=== PATIENT | female | born 1970 | race Caucasian/White ===

== ENCOUNTER → 2016-11-29 | Outpatient (CLI) | payer MEDICAID ==
[2016-11-29 17:14] LABS: Anisocytosis Slight; Basophils % (A) 0 %; CH 16.3; CHCM 25.6; Eosinophils % (A) 0 %; HCT 29.9 % (34.0-46.0); HDW 3.33; HGB 7.7 gm/dL (11.4-16.0); Hypochromasia Marked; Luc # (Auto) 0.05; Luc % (Auto) 1; Lymphocytes # (A) 0.4 k/uL (1.0-4.8); Lymphocytes % (A) 6 %; MCH 16.6 pg (25.0-35.0); MCV 64.2 fL (80.0-100.0); Mean Platelet Volume 7.7; Microcytosis Marked; Monocytes # (A) 0.2 k/uL (0-1.0); Monocytes % (A) 4 %; Neutrophils # (A) 5.1 k/uL (1.3-7.7); Neutrophils % (A) 89 %; RBC 4.66 m/uL (3.80-5.40); RDW 18.5 % (11.5-15.5); WBC 5.7 k/uL (3.8-10.6); WBC (Perox) 5.92
[2016-11-29 17:15] LABS: MCHC 25.9 g/dL (31.0-37.0)
[2016-11-29 18:44] LABS: Hepatitis C Virus IgG Index 0.01
[2016-11-29 18:50] LABS: Hepatitis C Virus IgG Ab Negative (Negative)
[2016-11-29 19:25] LABS: ALT 26 U/L (9-52); AST 19 U/L (14-36); Blood Urea Nitrogen 24 mg/dL (7-17); Non-African American GFR(MDRD) >60 (>60 ml/min/1.73 sqM)
== END | disposition home or self-care (01) ==
LOC: LABWHC1 16:53
PROVIDERS: ATTEND Physician Assistant Medical
DX: L20.89 Other atopic dermatitis (principal)
CPT/HCPCS: 36415; 82565; 84450; 84460; 84520; 85025; 86707; 86803; 87350

== ENCOUNTER → 2016-12-06 | Outpatient (CLI) | payer MEDICAID ==
[2016-12-06 19:51] LABS: Iron <10 ug/dL (37-170)
[2016-12-06 20:00] LABS: % Iron Saturation <2.3 % (20-50); Total Iron Binding Capacity 431 ug/dL (265-497)
[2016-12-06 20:41] LABS: Anisocytosis Slight; CH 16.5; CHCM 25.3; HCT 33.6 % (34.0-46.0); HDW 3.05; HGB 8.5 gm/dL (11.4-16.0); Hypochromasia Marked; MCH 16.7 pg (25.0-35.0); MCV 65.7 fL (80.0-100.0); Mean Platelet Volume 6.8; Microcytosis Marked; RBC 5.11 m/uL (3.80-5.40); RDW 18.2 % (11.5-15.5); WBC 6.2 k/uL (3.8-10.6); WBC (Perox) 6.92
[2016-12-06 20:43] LABS: MCHC 25.4 g/dL (31.0-37.0)
[2016-12-06 21:04] LABS: Add Differential Manual Differential
[2016-12-06 21:09] LABS: Nucleated Red Blood Cells 0 /100 WBC (0-0); Ovalocytes Present; Stomatocytes Present; Target Cells Present; Tear Drop Cells Present; Total Cells Counted 100
[2016-12-06 21:10] LABS: Manual Review Performed
== END | disposition home or self-care (01) ==
LOC: MMGSC 10:23
PROVIDERS: ATTEND Family Medicine
DX: D64.9 Anemia, unspecified (principal)
CPT/HCPCS: 36415; 82728; 83540; 83550; 85025

== ENCOUNTER → 2017-02-20 | Outpatient (CLI) | payer MEDICAID ==
[2017-02-21 00:14] LABS: Anisocytosis Slight; Basophils % (A) 1 %; CH 27.5; CHCM 31.8; Eosinophils # (A) 0.2 k/uL (0-0.7); Eosinophils % (A) 3 %; HCT 42.3 % (34.0-46.0); HDW 3.25; HGB 13.3 gm/dL (11.4-16.0); Hypochromasia Slight; Luc # (Auto) 0.08; Luc % (Auto) 2; Lymphocytes # (A) 0.8 k/uL (1.0-4.8); Lymphocytes % (A) 15 %; MCH 27.1 pg (25.0-35.0); MCHC 31.5 g/dL (31.0-37.0); Microcytosis Slight; Monocytes # (A) 0.2 k/uL (0-1.0); Monocytes % (A) 4 %; Neutrophils % (A) 75 %; RBC 4.92 m/uL (3.80-5.40); WBC 5.3 k/uL (3.8-10.6)
[2017-02-21 01:34] LABS: ALT 27 U/L (9-52); AST 20 U/L (14-36); Alkaline Phosphatase 55 U/L (38-126); Anion Gap 11 mmol/L; Blood Urea Nitrogen 19 mg/dL (7-17); Carbon Dioxide 21 mmol/L (22-30); Chloride 106 mmol/L (98-107); Cholesterol 168 mg/dL (<200); Glucose 145 mg/dL (74-99); HDL Cholesterol 77 mg/dL (40-60); Iron 47 ug/dL (37-170); Non-African American GFR(MDRD) >60 (>60 ml/min/1.73 sqM); Potassium 3.9 mmol/L (3.5-5.1); Sodium 138 mmol/L (137-145); Total Bilirubin 0.4 mg/dL (0.2-1.3); Total Protein 6.6 g/dL (6.3-8.2); Triglycerides 43 mg/dL (<150)
[2017-02-21 01:44] LABS: % Iron Saturation 13.5 % (20-50); Total Iron Binding Capacity 347 ug/dL (265-497)
== END ==
LOC: MMGSC 17:05
PROVIDERS: ATTEND Family Medicine
DX: E11.9 Type 2 diabetes mellitus without complications (principal); E03.9 Hypothyroidism, unspecified; D64.9 Anemia, unspecified
CPT/HCPCS: 36415; 80053; 80061; 82728; 83036; 83540; 83550; 84439; 84443; 85025

== ENCOUNTER → 2017-04-04 | Outpatient (CLI) | payer MEDICAID | LOC: MMGSC 17:04 | PROVIDERS: ATTEND Family Medicine | DX: E03.9 Hypothyroidism, unspecified (principal) | CPT/HCPCS: 36415; 84439; 84443 ==

== ENCOUNTER → 2017-05-21 | Outpatient (CLI) | payer MEDICAID ==
--- NOTE | 2017-05-21 08:54 | US ---
EXAMINATION TYPE: US pelvic complete DATE OF EXAM: 05/21/2017 COMPARISON: NONE CLINICAL HISTORY: N92.0 MENORRHAGIA W/ REGULAR CYCLE. Heavy, irregular cycles for 7 months, h/o tubal and TECHNIQUE: TA, did not do TV approach due to size of pathology noted below would have made TV approa ch very difficult to properly assess structures Date of LMP: 04/25/2017 EXAM MEASUREMENTS: Uterus: 9.8 x 6.2 x 4.8 cm Endometrial Stripe: 1.5 cm Right Ovary: 1.7 x 1.8 x 1.1 cm Left Ovary: 2.3 x 1.5 x 1.4 cm 1. Uterus: Anteverted, 8.4cm left sided fibroid seen and midline smaller fibroid noted at 2.2cm. 2. Endometrium: wnl 3. Right Ovary: wnl 4. Left Ovary: wnl 5. Bilateral Adnexa: wnl 6. Posterior cul-de-sac: wnl IMPRESSION: 1. Large 8.4 cm fibroid within the left side uterus. A smaller fibroid is also noted.
--- NOTE | 2017-05-22 07:30 | MM ---
Reason for exam: screening (asymptomatic). Last mammogram was performed 1 year and 9 months ago. History: Family history of breast cancer in grandmother at age 70. Physical Findings: A clinical breast exam by your physician is recommended on an annual basis and results should be correlated with mammographic findings. MG Screening Mammo w CAD Bilateral CC and MLO view(s) were taken. Prior study comparison: August 27, 2015, bilateral MG screening mammo w CAD. The breast tissue is extremely dense which could obscure a lesion on mammography. No significant changes when compared with prior studies. ASSESSMENT: Negative, BI-RAD 1 RECOMMENDATION: Routine screening mammogram of both breasts in 1 year.
== END | disposition home or self-care (01) ==
LOC: RADUSWWP 06:52
PROVIDERS: ATTEND Obstetrics & Gynecology
DX: Z12.31 Encounter for screening mammogram for malignant neoplasm of breast (principal); D25.9 Leiomyoma of uterus, unspecified; N92.0 Excessive and frequent menstruation with regular cycle
CPT/HCPCS: 76856; G0202

== ENCOUNTER → 2017-06-16 | Outpatient (CLI) | payer MEDICAID ==
[2017-06-16 09:21] LABS: Basophils # (A) 0.1 k/uL (0-0.2); Basophils % (A) 1 %; CH 30.8; CHCM 34.9; Eosinophils # (A) 0.2 k/uL (0-0.7); Eosinophils % (A) 4 %; HCT 45.7 % (34.0-46.0); HDW 2.45; HGB 15.5 gm/dL (11.4-16.0); Luc # (Auto) 0.04; Luc % (Auto) 1; Lymphocytes # (A) 0.4 k/uL (1.0-4.8); Lymphocytes % (A) 8 %; MCH 30.1 pg (25.0-35.0); MCV 88.7 fL (80.0-100.0); Mean Platelet Volume 7.5; Monocytes # (A) 0.4 k/uL (0-1.0); Monocytes % (A) 7 %; Neutrophils % (A) 79 %; RBC 5.15 m/uL (3.80-5.40); RDW 13.9 % (11.5-15.5); WBC 5.1 k/uL (3.8-10.6); WBC (Perox) 4.99
[2017-06-16 09:37] LABS: Anion Gap 10 mmol/L; Blood Urea Nitrogen 14 mg/dL (7-17); Calcium 9.1 mg/dL (8.4-10.2); Carbon Dioxide 26 mmol/L (22-30); Chloride 102 mmol/L (98-107); Glucose 253 mg/dL (74-99); Non-African American GFR(MDRD) >60 (>60 ml/min/1.73 sqM); Potassium 4.6 mmol/L (3.5-5.1); Sodium 138 mmol/L (137-145)
== END ==
LOC: LABWHC1 08:56
PROVIDERS: ATTEND Obstetrics & Gynecology
DX: Z01.812 Encounter for preprocedural laboratory examination (principal)
CPT/HCPCS: 36415; 80048; 85025

== ENCOUNTER 2017-06-21 05:57 | Inpatient (IN) | payer MEDICAID ==
[2017-06-18 17:56] VITALS: BMI 25.4
--- NOTE | 2017-06-19 21:00 | P.HPOB ---
History of Present Illness H&P Date: 06/19/17 Chief Complaint: menorrhagia 47 year old presents for Total abdominal hysterectomy with bilateral salpingectomy and possible oopherectomy. She has been having irregular, heavy and painful periods for the last several months. US showed 9.8cm uterus with 8.4cm lateral fibroid and 4-5cm pedunculated fibroid through the cervix. normal pap and endometrial biopsy. Review of Systems All systems: negative Constitutional: Denies chills, Denies fever Eyes: denies blurred vision, denies pain Ears, nose, mouth and throat: Denies headache, Denies sore throat Cardiovascular: Denies chest pain, Denies shortness of breath Respiratory: Denies cough Gastrointestinal: Denies abdominal pain, Denies diarrhea, Denies nausea, Denies vomiting Genitourinary: Denies dysuria, Denies hematuria Musculoskeletal: Denies myalgias Integumentary: Denies pruritus, Denies rash Neurological: Denies numbness, Denies weakness Psychiatric: Denies anxiety, Denies depression Endocrine: Denies fatigue, Denies weight change Past Medical History Past Medical History: Diabetes Mellitus, Skin Disorder, Thyroid Disorder Additional Past Medical History / Comment(s): ECTOPIC DERMATITIS. HX THYROIDECTOMY D/T NODULES. History of Any Multi-Drug Resistant Organisms: None Reported Past Surgical History: Section, Tubal Ligation Additional Past Surgical History / Comment(s): THYROIDECTOMY. Past Anesthesia/Blood Transfusion Reactions: Motion Sickness Smoking Status: Current every day smoker Past Alcohol Use History: None Reported Past Drug Use History: None Reported - Past Family History Mother Family Medical History: Cancer Additional Family Medical History / Comment(s): brain Medications and Allergies Home Medications Medication Instructions Recorded Confirmed Type Insulin Aspart [NovoLOG] 0 unit SQ AC-TID PRN 03/02/14 06/18/17 History Levothyroxine Sodium [Synthroid] 150 mcg PO DAILY 03/02/14 06/18/17 History Clobetasol Propionate [Temovate 1 applic TOPICAL DIRECTED PRN 06/18/17 History 0.05% Oint] Insulin Degludec [Tresiba 20 unit SQ QAM 06/18/17 06/18/17 History Flextouch U-100] Iron 65 mg PO DAILY 06/18/17 06/18/17 History Triamcinolone 0.1% Ointment 1 applic TOPICAL QID PRN 06/18/17 06/18/17 History [Kenalog 0.1% Ointment] hydrOXYzine HCL 10 mg PO HS PRN 06/18/17 06/18/17 History Allergies Allergy/AdvReac Type Severity Reaction Status Date / Time No Known Allergies Allergy Verified 06/18/17 15:30 Exam Osteopathic Statement: *. No significant issues noted on an osteopathic structural exam other than those noted in the History and Physical/Consult. HEart: RRR Lungs: CTAB Abdomen: soft, nontender Extremeties: neg cosme's Assessment and Plan (1) Menorrhagia Status: Acute (2) Fibroid uterus Status: Acute Plan: 1. Total Abdominal Hysterectomy with Bilateral Salpingectomy and possible oopherectomy
[~2017-06-21 05:57] MED LIST: DEXAMETHASONE SOD PHOSPHATE 10 MG/ML 1 ML VIAL IV ONE; LACTATED RINGERS 1,000 ML IV SCH; MIDAZOLAM 2 MG/2 ML VIAL IV PRN; ONDANSETRON 4 MG/2 ML VIAL IVP ONE; ceFAZolin 2 GM in SODIUM CHLORIDE 0.9% 100 ML IVPB ONE
[2017-06-21 06:44] LABS: Glucose,Whole Blood 76 mg/dL (75-99)
[2017-06-21] MEDS ORDERED: LIDOCAINE 1% 20 ML VIAL (10MG/ML) FOR IV START INTRADERMA ONE (06:46)
[2017-06-21] MEDS ORDERED: fentaNYL (PF) 50 MCG/ML 2 ML AMP IV ONE (07:15)
[2017-06-21] MEDS ORDERED: SUCCINYLCHOLINE CHLORIDE 100 MG/5 ML SYR IV ONE (07:28)
[2017-06-21] MEDS ORDERED: MIDAZOLAM 2 MG/2 ML VIAL ONE (07:28)
[2017-06-21] MEDS ORDERED: LIDOCAINE 1% INJ 10MG/ML (20 ML MDV) ONE (07:28)
[2017-06-21] MEDS ORDERED: fentaNYL (PF) 50 MCG/ML 2 ML AMP ONE (07:28)
[2017-06-21] MEDS ORDERED: NEOSTIGMINE 1 MG/ML 10 ML VIAL ONE (07:28)
[2017-06-21] MEDS ORDERED: PROPOFOL 10 MG/ML 20 ML VIAL IV ONE (07:28)
[2017-06-21] MEDS ORDERED: ROCURONIUM BROMIDE 10 MG/ML 10 ML VIAL IV ONE (07:28)
[2017-06-21] MEDS ORDERED: GLYCOPYRROLATE 0.2 MG/ML 2 ML VIAL ONE (07:28)
[2017-06-21] MEDS ORDERED: LACTATED RINGERS 1,000 ML IV ONE (08:00)
[2017-06-21] MEDS ORDERED: NALBUPHINE 10 MG/ML AMPUL IV PRN (08:18)
[2017-06-21] MEDS ORDERED: NALOXONE 0.4 MG/ML 1 ML VIAL IV PRN (08:18)
[2017-06-21] MEDS ORDERED: diphenhydrAMINE 50 MG/ML 1 ML VIAL IVP PRN (08:18)
[2017-06-21] MEDS ORDERED: KETOROLAC 30 MG/ML 1 ML VIAL IVP PRN (08:18)
--- NOTE | 2017-06-21 08:49 | P.OP ---
Date of Procedure: 06/21/17 Preoperative Diagnosis: 1. Menorrhagia 2. Fibroid uterus Postoperative Diagnosis: 1. Menorrhagia 2. Fibroid uterus Procedure(s) Performed: Total abdominal hysterectomy with bilateral salpingectomy Anesthesia: CHRISTINA Surgeon: Brenda Fernandes Advisor To [employer]: Brian Zamudio Estimated Blood Loss (ml): 150 IV fluids (ml): 1,000 Urine output (ml): 120 Pathology: other (Uterus and cervix with fallopian tubes and attached uterine fibroids) Condition: stable Disposition: PACU Operative Findings: Pedunculated fibroid off the fundus and prolapsed fibroid through the cervix, normal ovaries Description of Procedure: Patient is taken the operating room where general anesthesia was obtained without difficulty. She is prepped and draped in normal sterile fashion dorsal supine position. Pfannenstiel skin incision was made the scalpel carried through to the underlying layer of fascia with the scalpel. Fascia was incised in midline and carried bilaterally with the Watson scissors. Superior aspect of the fascial incision was grasped Canones clamps elevated and the underlying rectus muscles dissected off with the Mayos. Attention was then turned to the inferior aspect of same incision which in a similar fashion was grasped tented up and the underlying rectus muscles dissected off with the Watson's. Rectus muscles were the midline and the peritoneum was identified tented up and entered sharply with the scalpel. The incision was extended superiorly and inferiorly with good visualization of bladder. The [place] retractor was then placed. The bowels packed away with moist laparotomy sponges. Survey of the pelvis revealed a uterus with a pedunculated fibroid off the fundus, normal ovaries and normal-appearing fallopian tubes that had obviously been through a tubal ligation. The right fallopian tube was grasped with a Jordanian and beneath that a Jose De Jesus was used to clamp the mesosalpinx. The mesosalpinx was cut and this area was suture ligated. The right round ligament was then clamped cut and suture ligated. The left fallopian tube was clamped cut and suture ligated. The left round ligament was clamped cut and suture ligated. There were some adhesions of the bladder to the anterior uterus which were taken off using the Metzenbaums gently. The bladder was peeled off the underlying cervix. The broad ligament and uterine artery were clamped with Jose De Jesus clamps cut and suture ligated. This is then a stepwise fashion down the cardinal ligaments the uterosacral ligaments to the level of the cervix. The cervicovaginal junction was then clamped cut and suture ligated. The uterus and cervix were amputated off the underlying vaginal cuff. Vaginal cuff was closed with 0 Vicryl in a running locked fashion. Excellent hemostasis was assured. The pelvis was copiously irrigated. Both ovaries were again inspected and appeared normal. All instruments were removed from the abdomen. The peritoneum was reapproximated with 2-0 Vicryl in a running fashion. Muscles were approximated with 2-0 Vicryl in a interrupted fashion. The fascia was reapproximated with 0 Vicryl in a running fashion. The subcutaneous tissues closed with 3-0 Vicryl in a running fashion. The skin was closed lisbet. Patient tolerated procedure well, sponge and instrument counts are correct 2. She was taken to recovery in stable condition.
[2017-06-21 08:59] LABS: Glucose,Whole Blood 99 mg/dL (75-99)
[2017-06-21] MEDS: HYDROmorphone 1 MG/ML 1 ML SYRINGE IVP PRN ×2 (09:26→09:41)
[2017-06-21] MEDS ORDERED: hydrOXYzine HCL 10 MG TAB PO PRN (09:49)
[2017-06-21] MEDS ORDERED: SIMETHICONE 80 MG CHEWABLE PO PRN (09:49)
[2017-06-21] MEDS ORDERED: Acetaminophen-Codeine 300-30mg TAB PO PRN ×2 (09:49)
[2017-06-21] MEDS: LEVOTHYROXINE 75 MCG TAB PO SCH (10:04)
--- NOTE | 2017-06-21 12:17 | P.CONS ---
History of Present Illness - Reason for Consult Consult date: 06/21/17 medical management of diabetes mellitus post op Requesting physician: Brenda Fernandes - Chief Complaint post operative day Zero - History of Present Illness 47-year-old female with past medical history significant of diabetes mellitus type 2, hypothyroidism, uterine fibroids. Patient presented for elective surgical intervention, patient has been diagnosed with uterine fibroids however she's been complaining of a lot of abdominal pain irregular heavy menses for months now. She has consult. FIRE ALARM INSTALLER and decision was made to have them surgically removed. Patient is seen today postoperative day 0 she tolerated procedure well, currently denies any chest pain or trouble breathing denies any headache or changes in her vision or hearing denies any focal neurologic deficits. She reports that her pain is controlled. Patient reports that she takes insulin at home for diabetes management combination of NovoLog and long-acting insulin. She is not sure what her most recent A1c has been however she reports that that much well controlled per her doctor. We were asked to see the patient to assist with diabetic management. Review of Systems Constitutional: Patient reports no fever, no chills, no night sweating, no significant weight changes Eyes: Patient reports no visual changes, no eye pain ENT: Patient reports no ear pain, no rhinorrhea, no sore throat Cardiovascular: Patient reports no chest pain, no exertional dyspnea, no peripheral leg edema, no orthopnea, no paroxysmal nocturnal dyspnea Respiratory:Patient reports no cough, no wheezing, no shortness of breath Gastrointestinal: Patient reports no diarrhea, no constipation, no nausea no vomiting, no abdominal pain Genitourinary: Patient reports no dysuria, no hematuria, no changes in urinary habits, no genital lesions. Patient reports long history of heavy irregular menstrual periods and she was diagnosed with uterine fibroids as mentioned in HPI Musculoskeletal: Patient reports no muscle pain, no joint pain Psychiatric: Patient reports no changes in mood or memory, no suicidal ideation , no anxiety Endocrine: Patient reports no heat intolerance, no cold intolerance, no excessive thirst, no polyuria Neurological: Patient reports no focal neurologic deficits, no weakness, no numbness, no tingling Hem/Lymphatic: Patient reports no bleeding tendency, no bruising, no swollen lymph glands Allergic/Immun: Patient reports no recent allergic reactions Skin: Patient reports no rashes, no pruritis, no ulcers Past Medical History Past Medical History: Diabetes Mellitus, Skin Disorder, Thyroid Disorder Additional Past Medical History / Comment(s): Atopic DERMATITIS. HX THYROIDECTOMY D/T NODULES. uterine fibriods, heavy irregular menstrual periods History of Any Multi-Drug Resistant Organisms: None Reported Past Surgical History: Section, Tubal Ligation Additional Past Surgical History / Comment(s): THYROIDECTOMY. Past Anesthesia/Blood Transfusion Reactions: Motion Sickness Past Psychological History: No Psychological Hx Reported Smoking Status: Current every day smoker Past Alcohol Use History: None Reported Additional Past Alcohol Use History / Comment(s): SMOKED AGE [age] YEARS OLD, BEGAN AGAIN 2011, 1/2 PPD. Past Drug Use History: None Reported - Past Family History Mother Family Medical History: Cancer Additional Family Medical History / Comment(s): brain. DM runs in the family Medications and Allergies Home Medications and Allergies Comment(s): reviewed Home Medications Medication Instructions Recorded Confirmed Type Insulin Aspart [NovoLOG] See Protocol SQ AC-TID PRN 03/02/14 06/21/17 History Clobetasol Propionate [Temovate 1 applic TOPICAL DIRECTED PRN 06/18/17 History 0.05% Oint] Insulin Degludec [Tresiba 20 unit SQ QAM 06/18/17 06/21/17 History Flextouch U-100] Triamcinolone 0.1% Ointment 1 applic TOPICAL QID PRN 06/18/17 06/21/17 History [Kenalog 0.1% Ointment] hydrOXYzine HCL 10 mg PO HS PRN 06/18/17 06/21/17 History Ferrous Sulfate [Feosol] 325 mg PO DAILY 06/21/17 06/21/17 History Levothyroxine Sodium [Synthroid] 150 mcg PO DAILY 06/21/17 06/21/17 History Allergies Allergy/AdvReac Type Severity Reaction Status Date / Time No Known Allergies Allergy Verified 06/21/17 09:34 Physical Exam Vitals: Vital Signs Temp Pulse Pulse Resp BP BP Pulse Ox 06/21/17 11:17 97 06/21/17 10:50 88 19 110/61 98 06/21/17 10:35 92 19 114/72 98 06/21/17 10:20 98.5 F 88 19 119/62 93 L 06/21/17 09:58 90 16 115/72 92 L 06/21/17 09:43 94 16 117/60 92 L 06/21/17 09:28 85 16 125/64 98 06/21/17 09:13 76 16 131/63 97 06/21/17 08:58 78 16 129/60 100 06/21/17 08:43 98 F 66 12 118/58 99 06/21/17 08:18 98.1 F 71 18 153/78 90 L 06/21/17 07:22 75 16 125/71 99 06/21/17 07:10 71 16 118/79 99 06/21/17 06:22 98.5 F 73 16 121/73 98 Intake and Output 06/20/17 06/21/17 06/21/17 22:59 06:59 14:59 Intake Total 200 1450 Output Total 270 Balance 200 1180 Intake: IV 200 1450 Output: Urine 120 Estimated Blood Loss 150 Other: Voiding Method Indwelling Catheter Constitutional: No acute distress, conversant, pleasant Eyes: Anicteric sclerae, moist conjunctiva, no lid-lag Pupils equal round reactive to light ENMT: NC/AT Oropharynx clear, no erythema, exudates Neck: Supple, FROM, no masses, or JVD No carotid bruits No palpable masses Lungs: Clear to auscultation Clear to percussion Normal respiratory effort, no accessory muscle use Cardiovascular: Heart regular in rate and rhythm, No murmurs, gallops, or rubs No peripheral edema Abdominal: Soft , slight discomfort with deep palpation, bowel sounds positive, limited assessment for organomegally or deep masses due to immediate post operative periods and pain with deep palpation of the abd. no abd wall hernia, surgical dressing over lower abdomen , intact, clean and dry Garcia cath in place, urine clear and yellow Skin: Normal temperature, tone, texture, turgor No induration No subcutaneous nodules No rash, lesions No ulcers Extremities: No digital cyanosis No clubbing Pedal pulses intact and symmetrical Radial pulses intact and symmetrical No calf tenderness capillary refill is immediate over bilateral toes and fingers Psychiatric: Alert and oriented to person, place and time Appropriate affect fair judgment Neuro Muscles Strength 5/5 in all 4 extremities Sensation to light touch grossly present throughout Cranial nerves II-XII grossly intact No focal sensory deficits Lymphatics: no palpable cervical or supraclavicular , or inguinal lymph nodes Assessment and Plan (1) Diabetes mellitus Narrative/Plan: DM type II, IDDM, patient uses both short and long acting insulin at home continue with novolog per sliding scale start levemir 10 units HS (more conservative dose due to patient being NPO, and will start with clear liquids soon to avoid hypoglycemia) monitor blood sugar adjust insulin dosing as needed check A1C% patient should be able to resume her home insulin regimen upon discharge Status: Acute (2) Nicotine addiction Narrative/Plan: counseling to quit smoking, smoking can delay wound healing incentive spirometry NRT offered Status: Acute (3) DVT prophylaxis Narrative/Plan: currently with SCDs recommendation to consider pharmacologic DVT PPx utilizing heparin sc or lovenox , defer to primary team when its safe to start that Status: Acute (4) Anemia Narrative/Plan: 2/2 heavy menses check ferritin, iron studies and TIBC in AM patient used iron supplementation as outpatient check CBC in AM Status: Acute (5) Fibroid uterus Narrative/Plan: post operative day Zero post abd hysterectomy and BSO management per FIRE ALARM INSTALLER pain control consider removing Garcia catheter Status: Acute (6) Menorrhagia Status: Acute Plan: Thank you for allowing us to participate in the care of this patient. We will follow up closely along with you. Do not hesitate to contact us with questions. Someone can be reached from [facility] hospitalist group at all hours of the day at [phone]. Surrogate decision-maker: patient Father Don Casimiro CODE STATUS: Full COde Discussed with: Patient, and nursing Anticipated discharge: per primary team Anticipated discharge place: Home Time with Patient: Greater than 30
[2017-06-21] MEDS: ONDANSETRON 4 MG/2 ML VIAL IVP PRN ×2 (13:15→19:46)
[2017-06-21 13:26] LABS: Glucose,Whole Blood 162 mg/dL (75-99)
[2017-06-21] MEDS: INSULIN LISPRO (humaLOG) 300 UNIT/3 ML VIAL SQ SCH ×3 (13:37→20:52)
[2017-06-21 17:20] LABS: Glucose,Whole Blood 136 mg/dL (75-99)
[2017-06-21] MEDS: NICOTINE 14MG/24HR PATCH TRANSDERM SCH (20:44)
[2017-06-21 20:45] LABS: Glucose,Whole Blood 108 mg/dL (75-99)
[2017-06-21] MEDS ORDERED: INSULIN DETEMIR 100 UNIT/ML 10 ML VIAL SQ SCH ×2 (21:00)
[2017-06-22] MEDS: LEVOTHYROXINE 75 MCG TAB PO SCH (06:40)
[2017-06-22 06:50] LABS: Glucose,Whole Blood 44 mg/dL (75-99)
[2017-06-22] MEDS: INSULIN LISPRO (humaLOG) 300 UNIT/3 ML VIAL SQ SCH ×4 (06:56→21:47)
[2017-06-22 07:01] LABS: Glucose,Whole Blood 43 mg/dL (75-99)
[2017-06-22 07:34] LABS: Glucose,Whole Blood 65 mg/dL (75-99)
[2017-06-22 07:34] LABS: Glucose,Whole Blood 94 mg/dL (75-99)
[2017-06-22 07:51] LABS: Basophils % (A) 0 %; CH 30.9; CHCM 34.1; Eosinophils % (A) 1 %; HCT 39.1 % (34.0-46.0); HDW 2.41; HGB 12.7 gm/dL (11.4-16.0); Luc # (Auto) 0.05; Luc % (Auto) 1; Lymphocytes # (A) 0.5 k/uL (1.0-4.8); Lymphocytes % (A) 7 %; MCH 29.5 pg (25.0-35.0); MCHC 32.4 g/dL (31.0-37.0); MCV 91.1 fL (80.0-100.0); Mean Platelet Volume 7.6; Monocytes # (A) 0.5 k/uL (0-1.0); Monocytes % (A) 7 %; Neutrophils # (A) 6.1 k/uL (1.3-7.7); Neutrophils % (A) 85 %; RDW 13.4 % (11.5-15.5); WBC 7.1 k/uL (3.8-10.6); WBC (Perox) 7.19
[2017-06-22] MEDS ORDERED: IBUPROFEN 600 MG TAB PO PRN (08:01)
--- NOTE | 2017-06-22 08:08 | P.PN ---
Progress Note - Text Pt seen and examined. She was nauseated yesterday but doing better today though starting to feel some pain. Not passing flatus yet. Denies F/C, CP, BHATT SOB or calf pain.. VSS blood sugar this morning was low in the 40's but pt was asymptomatic. She had some juice and it went up to 94. Heart: RRR Lungs: CTAB Abdomen: soft, nondistended, +bowel sounds, Incision:C/D/I with lisbet Extremeties: neg cosme's A1.S/P [place] BS POD #1 2. DM P 1. increase ambulation 2. pain control-pt states tylenol #3 is not helpful for her and I will change her to [place] 7.5/325 one tab every 6 hours and motrin 600mg every 6 hours 3. regular diabetic diet 4. continue blood sugar management by hospitalist.
[2017-06-22 08:09] LABS: Anion Gap 7 mmol/L; Blood Urea Nitrogen 11 mg/dL (7-17); Calcium 8.1 mg/dL (8.4-10.2); Carbon Dioxide 27 mmol/L (22-30); Chloride 103 mmol/L (98-107); Glucose 92 mg/dL (74-99); Non-African American GFR(MDRD) >60 (>60 ml/min/1.73 sqM); Potassium 3.4 mmol/L (3.5-5.1); Sodium 137 mmol/L (137-145)
[2017-06-22] MEDS: METOCLOPRAMIDE 5 MG/ML 2 ML VIAL IVP PRN (08:36)
[2017-06-22] MEDS: KETOROLAC 30 MG/ML 1 ML VIAL IVP PRN ×2 (09:10→17:47)
[2017-06-22] MEDS: NICOTINE 14MG/24HR PATCH TRANSDERM SCH (09:18)
--- NOTE | 2017-06-22 09:33 | P.PN ---
Progress Note - Text Postoperative day 1 status post total abdominal hysterectomy, and intrathecal morphine given for postoperative analgesia, patient doing well, there is no anesthesia related complications, further management as per her primary team, patient started having pain and she is currently on Tylenol No. 3 and she has some nausea she will be getting Zofran
--- NOTE | 2017-06-22 10:56 | P.PN ---
Subjective Principal diagnosis: patient is seen and examined in follow up of diabetic management 47 year old female with history of uterine fibroids, which became symptomatic and associated with menorrhagia. She elected to have surgical intervention. patient is seen today POD # 1, she was feeling ok this morning denies any chest pain or trouble breathing. she still had her cordon cath in place , and denies passing gasses or BM. This morning she had low blood sugar however was asymptomatic, she was given some juice and crackers and bounced up to the 60s and then 90s. Patient had a bout of vomiting later today which was described as bilious . Objective - Vital Signs Vital signs: Vital Signs Temp 98.4 F 06/22/17 07:53 Pulse 68 06/22/17 07:53 Resp 20 06/22/17 07:53 BP 107/58 06/22/17 07:53 Pulse Ox 100 06/22/17 09:19 Intake & Output 06/21/17 06/22/17 06/22/17 18:59 06:59 18:59 Intake Total 1450 100 Output Total 621 200 451 Balance 829 -200 -351 Intake: IV 1450 Oral 100 Output: Urine 470 200 450 Uretheral (Cordon) 350 450 Emesis 1 1 Estimated Blood Loss 150 Other: Voiding Method Indwelling Catheter Indwelling Catheter Indwelling Catheter # Voids 2 - Exam Constitutional: vital signs stable, Not in acute distress, pleasant, conversant Lungs: Clear to auscultation bilaterally, clear to percussion, normal respiratory effort Cardiovascular: Regular rate and rhythm, no murmurs, no gallops, no rubs, no peripheral edema Gastrointestinal: upper belly is soft, however feels slightly tense over and below the umbilical region, surgical dressing in place looks dry and clean. BS positive today. very slight tenderness to deep palpation and percussion. Extremities: No digital cyanosis or ischemia, no calf muscle tenderness Psych: Alert, oriented to place, person and time Cordon catheter in place, with clear yellow urine. - Labs CBC & Chem 7: 06/22/17 07:32 06/22/17 07:32 Labs: Abnormal Lab Results - Last 24 Hours (Table) 06/21/17 06/21/17 06/21/17 Range/Units 13:24 17:17 20:43 Lymphocytes # (1.0-4.8) k/uL Potassium (3.5-5.1) mmol/L POC Glucose (mg/dL) 162 H 136 H 108 H (75-99) mg/dL Calcium (8.4-10.2) mg/dL 06/22/17 06/22/17 06/22/17 Range/Units 06:48 06:50 07:12 Lymphocytes # (1.0-4.8) k/uL Potassium (3.5-5.1) mmol/L POC Glucose (mg/dL) 44 L 43 L 65 L (75-99) mg/dL Calcium (8.4-10.2) mg/dL 06/22/17 06/22/17 Range/Units 07:32 07:32 Lymphocytes # 0.5 L (1.0-4.8) k/uL Potassium 3.4 L (3.5-5.1) mmol/L POC Glucose (mg/dL) (75-99) mg/dL Calcium 8.1 L (8.4-10.2) mg/dL reviewed Assessment and Plan (1) Diabetes mellitus Narrative/Plan: DM type II, IDDM, Hypoglycemia this morning Hold Levemir as patient has very poor PO intake and still on clear liquids. She had one episode of vomiting this morning which was described as bilious. If this resolves during the day and she tolerates advancing diet, then consider restarting her levemir for tonight I will reevaluate her later this evening continue with novolog per sliding scale check A1C% patient should be able to resume her home insulin regimen upon discharge Status: Acute (2) Nicotine addiction Narrative/Plan: counseling to quit smoking, smoking can delay wound healing incentive spirometry NRT offered Status: Acute (3) DVT prophylaxis Narrative/Plan: currently with SCDs recommendation to consider pharmacologic DVT PPx utilizing heparin sc or lovenox , defer to primary team when its safe to start that Status: Acute (4) Fibroid uterus Narrative/Plan: post operative day 1 post abd hysterectomy and BSO management per ENGRAVING SUPERVISOR pain control consider removing Cordon catheter Status: Acute (5) Menorrhagia Status: Chronic
[2017-06-22 11:48] LABS: Glucose,Whole Blood 54 mg/dL (75-99)
[2017-06-22 12:33] LABS: Glucose,Whole Blood 136 mg/dL (75-99)
[2017-06-22 12:33] LABS: Glucose,Whole Blood 64 mg/dL (75-99)
[2017-06-22] MEDS: HYDROcodone/APAP 7.5-325MG 1 EACH TAB PO PRN ×2 (12:43→20:44)
[2017-06-22 12:57] LABS: Hemoglobin A1C 7.2 % (4.2-6.1)
[2017-06-22 15:30] LABS: Iron Saturation 21.27 (12.00-45.00)
[2017-06-22 17:34] LABS: Glucose,Whole Blood 237 mg/dL (75-99)
[2017-06-22] MEDS ORDERED: INSULIN DETEMIR 100 UNIT/ML 10 ML VIAL SQ SCH (21:00)
[2017-06-22 21:36] LABS: Glucose,Whole Blood 272 mg/dL (75-99)
[2017-06-23] MEDS: METOCLOPRAMIDE 5 MG/ML 2 ML VIAL IVP PRN (03:25)
[2017-06-23] MEDS: HYDROcodone/APAP 7.5-325MG 1 EACH TAB PO PRN ×2 (03:25→09:25)
[2017-06-23] MEDS: LEVOTHYROXINE 75 MCG TAB PO SCH (06:43)
[2017-06-23 08:11] LABS: Glucose,Whole Blood 57 mg/dL (75-99)
[2017-06-23 08:11] LABS: Glucose,Whole Blood 124 mg/dL (75-99)
[2017-06-23] MEDS: INSULIN LISPRO (humaLOG) 300 UNIT/3 ML VIAL SQ SCH ×2 (08:26→13:05)
[2017-06-23 08:51] VITALS: RESP 16
[2017-06-23 12:09] LABS: Glucose,Whole Blood 291 mg/dL (75-99)
--- NOTE | 2017-06-23 12:14 | P.PN ---
Subjective Principal diagnosis: patient is seen and examined in follow up of diabetic management 47 year old female with history of uterine fibroids, which became symptomatic and associated with menorrhagia. She elected to have surgical intervention. patient is seen today POD # 1, she was feeling ok this morning denies any chest pain or trouble breathing. she still had her cordon cath in place , and denies passing gasses or BM. patient doing well this morning , no new complaints she reports that she is passing gasses and bowel movement, tolerating diet. reports that pain is controlled. urinating with no issues she is eager to go home Objective - Vital Signs Vital signs: Vital Signs Temp 98.9 F 06/23/17 08:50 Pulse 68 06/23/17 08:50 Resp 16 06/23/17 08:50 BP 113/59 06/23/17 08:50 Pulse Ox 95 06/23/17 08:50 Intake & Output 06/22/17 06/23/17 06/23/17 18:59 06:59 18:59 Intake Total 340 1210 Output Total 751 600 Balance -411 610 Intake: Oral 340 1210 Output: Urine 750 600 Uretheral (Cordon) 450 Emesis 1 Other: Voiding Method Toilet # Voids 1 1 - Exam Constitutional: vital signs stable, Not in acute distress, pleasant, conversant Lungs: Clear to auscultation bilaterally, clear to percussion, normal respiratory effort Cardiovascular: Regular rate and rhythm, no murmurs, no gallops, no rubs, no peripheral edema Gastrointestinal: soft and lax, moving with respiration, surgical wound looks healthy, clean , dry , intact. bowel sounds positive, no tenderness to palpation of the abd Extremities: No digital cyanosis or ischemia, no calf muscle tenderness Psych: Alert, oriented to place, person and time - Labs CBC & Chem 7: 06/22/17 07:32 06/22/17 07:32 Labs: Abnormal Lab Results - Last 24 Hours (Table) 06/22/17 06/22/17 06/22/17 Range/Units 07:32 11:51 12:10 POC Glucose (mg/dL) 64 L 136 H (75-99) mg/dL Hemoglobin A1c 7.2 H (4.2-6.1) % 06/22/17 06/22/17 06/23/17 Range/Units 17:29 21:36 07:33 POC Glucose (mg/dL) 237 H 272 H 57 L (75-99) mg/dL Hemoglobin A1c (4.2-6.1) % 06/23/17 06/23/17 Range/Units 07:55 12:05 POC Glucose (mg/dL) 124 H 291 H (75-99) mg/dL Hemoglobin A1c (4.2-6.1) % Assessment and Plan (1) Diabetes mellitus Narrative/Plan: DM type I, IDDM, brittle diabetes continue with preadmission home insulin regimen follow up with PCP A1C 7.2 % monitor blood sugar closely added 2 units of short acting prior to breakfast and lunch while in the hospital only continue with levemir while hospitalized only Status: Acute (2) Nicotine addiction Narrative/Plan: counseling to quit smoking, smoking can delay wound healing incentive spirometry NRT offered Status: Acute (3) DVT prophylaxis Narrative/Plan: currently with SCDs recommendation to consider pharmacologic DVT PPx utilizing heparin sc or lovenox , defer to primary team when its safe to start that Status: Acute (4) Fibroid uterus Narrative/Plan: post operative day 2 post abd hysterectomy and BSO management per [employer] pain controled doing well, no immediate complications post op Status: Acute (5) Menorrhagia Status: Chronic Plan: resume home insulin dosing upon discharge hemoglobin stable stable from internal medicine stand point for discharge. Thank you for allowing us to participate in the care of this patient. We will follow up closely along with you. Do not hesitate to contact us with questions. Someone can be reached from [facility] hospitalist group at all hours of the day at [phone]. Surrogate decision-maker: patient Father Don Casimiro CODE STATUS: Full Code Discussed with: Patient, and nursing Anticipated discharge: per primary team Anticipated discharge place: Home
[2017-06-23] MEDS ORDERED: POTASSIUM CHLORIDE ER 20 MEQ TAB.ER PO STA (12:22)
[2017-06-23] MEDS ORDERED: INSULIN LISPRO (humaLOG) 300 UNIT/3 ML VIAL SQ SCH (12:30)
--- NOTE | 2017-06-23 13:51 | P.DS ---
Providers Date of admission: 06/21/17 05:57 Expected date of discharge: 06/23/17 Attending physician: Brenda Fernandes Consults: 06/21/17 09:49 Consult Physician Routine Consulting Provider: Gregory Mendoza Consult Reason/Comments: diabetes, currently inpatient postoperatively Do you want consulting provider notified?: Yes Primary care physician: [facility] Course: Patient is doing very well postop day 2. She is ambulating, voiding, and she is tolerating her diet. She voices no complaints. Vital signs are stable and afebrile. Heart regular, lungs clear, extremities without pain. She has been cleared by medicine. She'll follow up with Dr. Fernadnes in 1 week as well as with her primary care provider. Prescription for Motrin and Luray have been provided and all other questions are answered for her at this time. We'll plan to remove lisbet prior to discharge with placement of Steri-Strips. Otherwise instructions for care of the incision were also reviewed with patient in detail and she is again stable for discharge at this time. Patient Condition at Discharge: Good Plan - Discharge Summary New Discharge Prescriptions: New Nicotine 14Mg/24Hr Patch [Habitrol] 1 patch TRANSDERM DAILY #14 patch HYDROcodone/APAP 5-325MG [L[place]ay 5-325] 1 tab PO Q4HR PRN #40 tab PRN Reason: Pain Ibuprofen [Motrin] 600 mg PO Q6HR PRN #30 tab PRN Reason: Pain Continue Insulin Aspart [NovoLOG] See Protocol SQ AC-TID PRN PRN Reason: ELEV BS Insulin Degludec [Tresiba Flextouch U-100] 20 unit SQ QAM hydrOXYzine HCL 10 mg PO HS PRN PRN Reason: DERMATITIS Clobetasol Propionate [Temovate 0.05% Oint] 1 applic TOPICAL DIRECTED PRN PRN Reason: DERMATITIS Levothyroxine Sodium [Synthroid] 150 mcg PO DAILY Ferrous Sulfate [Iron (65 MG Elemental)] 325 mg PO DAILY No Action Triamcinolone 0.1% Ointment [Kenalog 0.1% Ointment] 1 applic TOPICAL QID PRN PRN Reason: DERMATITIS Discharge Medication List Insulin Aspart [NovoLOG] See Protocol SQ AC-TID PRN 03/02/14 [History] Clobetasol Propionate [Temovate 0.05% Oint] 1 applic TOPICAL DIRECTED PRN [History] Insulin Degludec [Tresiba Flextouch U-100] 20 unit SQ QAM 06/18/17 [History] Triamcinolone 0.1% Ointment [Kenalog 0.1% Ointment] 1 applic TOPICAL QID PRN [History] hydrOXYzine HCL 10 mg PO HS PRN 06/18/17 [History] Ferrous Sulfate [Iron (65 MG Elemental)] 325 mg PO DAILY 06/21/17 [History] Levothyroxine Sodium [Synthroid] 150 mcg PO DAILY 06/21/17 [History] HYDROcodone/APAP 5-325MG [[place]ay 5-325] 1 tab PO Q4HR PRN #40 tab 06/23/17 [Rx] Ibuprofen [Motrin] 600 mg PO Q6HR PRN #30 tab 06/23/17 [Rx] Nicotine 14Mg/24Hr Patch [Habitrol] 1 patch TRANSDERM DAILY #14 patch 06/23/17 [ Rx] Follow up Appointment(s)/Referral(s): Brenda Fernandes DO [Doctor of Osteopathic Medicine] - 1 Week Patient Instructions/Handouts: Ondansetron (By injection), Hysterectomy (GEN) Activity/Diet/Wound Care/Special Instructions: diabetic diet activity as tolerated resume your home regimen of insulin Activity as tolerated, rest as needed. No house work, no vaccuuming, limit steps, no driving, no intercourse, nothing in the vagina. May shower. Call Dr Fernandes if you develop increase in pain, bleeding from your vagina or incision, if you develop a fever, if you have difficulty voiding, or if you have any other concerns or questions. Drink plenty of fluids. Call Dr Fernandes's office on Sunday to make your follow up appointment. Discharge Disposition: HOME SELF-CARE
[2017-06-23] MEDS: NICOTINE 14MG/24HR PATCH TRANSDERM SCH (14:08)
[2017-06-23 14:29] VITALS: BP 129/74; PULSE 75; TEMP 98.4
[2017-06-24] MEDS ORDERED: INSULIN LISPRO (humaLOG) 300 UNIT/3 ML VIAL SQ SCH (07:30)
== END 2017-06-23 14:32 | disposition home or self-care (01) | DRG 743 ==
LOC: 2ORWHC 05:57 → 6PED 08:59
PROVIDERS: ADMIT Obstetrics & Gynecology; ATTEND Obstetrics & Gynecology
PROC: 0UT70ZZ Resection of Bilateral Fallopian Tubes, Open Approach (ICD-10-PCS; principal; 2017-06-21 07:30)
PROC: 0UT90ZZ Resection of Uterus, Open Approach (ICD-10-PCS; principal; 2017-06-21 07:30)
PROC: 0UTC0ZZ Resection of Cervix, Open Approach (ICD-10-PCS; principal; 2017-06-21 07:30)
DX: N92.0 Excessive and frequent menstruation with regular cycle (principal); D25.9 Leiomyoma of uterus, unspecified; D64.9 Anemia, unspecified; E03.9 Hypothyroidism, unspecified; E10.9 Type 1 diabetes mellitus without complications; F17.200 Nicotine dependence, unspecified, uncomplicated; Z79.4 Long term (current) use of insulin; Z83.3 Family history of diabetes mellitus
CPT/HCPCS: 80048; 81025; 82728; 83036; 83540; 83550; 85025; 86850; 86900; 86901; 94760

== ENCOUNTER → 2017-07-17 | Outpatient (CLI) | payer MEDICAID ==
[2017-07-17 21:21] LABS: Hemoglobin A1C 8.1 % (4.2-6.1)
== END | disposition home or self-care (01) ==
LOC: MMGSC 15:22
PROVIDERS: ATTEND Family Medicine
DX: E11.9 Type 2 diabetes mellitus without complications (principal); E03.9 Hypothyroidism, unspecified
CPT/HCPCS: 36415; 83036; 84439; 84443

== ENCOUNTER → 2018-01-16 | Outpatient (CLI) | payer MEDICAID ==
[2018-01-16 20:52] LABS: T4, Free (Free Thyroxine) 1.84 ng/dL (0.78-2.19)
[2018-01-17 03:06] LABS: Hemoglobin A1C 8.1 % (4.0-6.0)
== END | disposition home or self-care (01) ==
LOC: MMGSC 17:17
PROVIDERS: ATTEND Family Medicine
DX: E03.9 Hypothyroidism, unspecified (principal); E11.9 Type 2 diabetes mellitus without complications
CPT/HCPCS: 36415; 83036; 84439; 84443

== ENCOUNTER → 2018-01-22 | Outpatient (CLI) | payer MEDICAID | END | disposition home or self-care (01) | LOC: MMGSC 10:07 | PROVIDERS: ATTEND Family Medicine | DX: N39.0 Urinary tract infection, site not specified (principal) | CPT/HCPCS: 87086 ==

== ENCOUNTER → 2018-02-22 | Outpatient (CLI) | payer MEDICAID | END | disposition home or self-care (01) | LOC: LABWHC1 13:01 | PROVIDERS: ATTEND Family Medicine | DX: E87.5 Hyperkalemia (principal); I10 Essential (primary) hypertension | CPT/HCPCS: 36415; 84132 ==

== ENCOUNTER → 2018-07-20 | Outpatient (CLI) | payer MEDICAID ==
[2018-07-20 10:15] LABS: ALT 22 U/L (9-52); AST 16 U/L (14-36); Albumin 4.1 g/dL (3.5-5.0); Alkaline Phosphatase 50 U/L (38-126); Anion Gap 8 mmol/L; Blood Urea Nitrogen 18 mg/dL (7-17); Calcium 9.1 mg/dL (8.4-10.2); Carbon Dioxide 27 mmol/L (22-30); Chloride 106 mmol/L (98-107); Cholesterol 173 mg/dL (<200); Glucose 112 mg/dL (74-99); HDL Cholesterol 68 mg/dL (40-60); LDL Cholesterol,Calculated 97 mg/dL (0-99); Potassium 4.6 mmol/L (3.5-5.1); Sodium 141 mmol/L (137-145); Total Bilirubin 0.8 mg/dL (0.2-1.3); Total Protein 6.7 g/dL (6.3-8.2); Triglycerides 40 mg/dL (<150)
== END | disposition home or self-care (01) ==
LOC: LABWHC1 09:08
PROVIDERS: ATTEND Internal Medicine Endocrinology, Diabetes & Metabolism
DX: E10.65 Type 1 diabetes mellitus with hyperglycemia (principal); E03.8 Other specified hypothyroidism
CPT/HCPCS: 36415; 80053; 80061; 82043; 82570; 83036; 84443

== ENCOUNTER → 2018-09-11 | Outpatient (CLI) | payer BC, MEDICAID ==
--- NOTE | 2018-09-11 11:10 | US ---
EXAMINATION TYPE: US abdomen complete DATE OF EXAM: 09/11/2018 COMPARISON: NONE CLINICAL HISTORY: epigastric pain R10.13. ABd pain x 3-4 weeks EXAM MEASUREMENTS: Liver Length: 11.5 cm Gallbladder Wall: 0.2 cm CBD: 0.3 cm Spleen: 9.8 cm Right Kidney: 14.0 x 11.9 x 5.9 cm Left Kidney: 10.1 x 4.0 x 5.3 cm Pancreas: wnl Liver: 1.3cm hyperechoic lesion right dome Gallbladder: wnl Evidence for sonographic Aguilar's sign: no CBD: wnl Spleen: wnl Right Kidney: 11.0 x 10.3 x 6.8cm midpole cyst seen Left Kidney: wnl Upper IVC: wnl Abd Aorta: wnl IMPRESSION: 1. 1.3 cm hyperechoic lesion within the liver could be a hemangioma. Consider evaluation with contras t CT. 2. Large simple appearing cyst right kidney.
== END | disposition home or self-care (01) ==
LOC: RADUSWWP 09:22
PROVIDERS: ATTEND Family Medicine
DX: K76.9 Liver disease, unspecified (principal); N28.1 Cyst of kidney, acquired; R10.13 Epigastric pain
CPT/HCPCS: 76700

== ENCOUNTER → 2018-09-30 | Outpatient (CLI) | payer BC ==
--- NOTE | 2018-10-03 11:48 | MM ---
Reason for exam: screening (asymptomatic). Last mammogram was performed 1 year and 4 months ago. History: Family history of breast cancer in grandmother at age 70. Physical Findings: A clinical breast exam by your physician is recommended on an annual basis and results should be correlated with mammographic findings. MG Screening Mammo w CAD Bilateral CC and MLO view(s) were taken. Prior study comparison: May 21, 2017, bilateral MG screening mammo w CAD. August 27, 2015, bilateral MG screening mammo w CAD. The breast tissue is extremely dense which could obscure a lesion on mammography. Two nodular asymmetries left breast appear more defined. ASSESSMENT: Incomplete: need additional imaging evaluation, BI-RAD 0 RECOMMENDATION: Special view mammogram of the left breast. If lesion persists on supplemental views, image directed ultrasound is recommended. [facility] will attempt to contact patient to return for supplemental views and ultrasound if indicated.
== END ==
LOC: RADMAMWWP 10:01
PROVIDERS: ATTEND Family Medicine
DX: Z12.31 Encounter for screening mammogram for malignant neoplasm of breast (principal)
CPT/HCPCS: 77067

== ENCOUNTER → 2018-10-22 | Outpatient (CLI) | payer BC ==
--- NOTE | 2018-10-26 11:41 | MM ---
Reason for exam: additional evaluation requested from abnormal screening. Last mammogram was performed 1 month ago. History: Family history of breast cancer in grandmother at age 70. Physical Findings: Nurse Summary: a 0.5 x 0.5 cm mass in the left breast at 1 o'clock. MG 3D Work Up W/Cad LT Spot compression CC, spot compression MLO, and LM view(s) were taken of the left breast. Prior study comparison: September 30, 2018, bilateral MG screening mammo w CAD. May 21, 2017, bilateral MG screening mammo w CAD. The breast tissue is extremely dense which could obscure a lesion on mammography. There is a 4 mm round indistinct left breast mass in the lower outer anterior position. ASSESSMENT: Incomplete: need additional imaging evaluation, BI-RAD 0 RECOMMENDATION: Ultrasound of the left breast.
--- NOTE | 2018-10-26 11:47 | USB ---
History: Family history of breast cancer in grandmother at age 70. US Breast Workup Limited LT Left limited breast ultrasound including focal area of concern, retroareolar and axilla demonstrates a 1.0x 0.7 x 0.3 cm cluster oval cystic lesion at the BB at 2 o'clock, a 0.6 x 0.6 x 0.2 oval cystic lesion at 2 o'clock, a 0.6 x 0.4 x 0.4 cm oval cystic lesion at 3 o'clock and a 0.8 x 0.6 x 0.3 cm oval cystic lesion at 5 o'clock. These are thought to overall be fibrocystic changes. These results were verbally communicated with the patient and result sheet given to the patient on 10/22/18. ASSESSMENT: Benign, BI-RAD 2 RECOMMENDATION: Return to routine screening mammogram schedule for both breasts.
== END | disposition home or self-care (01) ==
LOC: RADMAMWWP 14:41
PROVIDERS: ATTEND Family Medicine
DX: R92.8 Other abnormal and inconclusive findings on diagnostic imaging of breast (principal)
CPT/HCPCS: 77061; 77065

== ENCOUNTER → 2019-01-17 | Outpatient (CLI) | payer BC ==
[2019-01-17 12:57] LABS: ALT 23 U/L (8-44); AST 20 U/L (13-35); Albumin/Globulin Ratio 2.59 (1.60-3.17); Alkaline Phosphatase 58 U/L (41-126); Calcium 8.7 mg/dL (8.7-10.3); Chloride 104 mmol/L (96-109); Cholesterol 161 mg/dL (0-200); Globulin 1.7 g/dL (1.6-3.3); Glucose 62 mg/dL (70-110); Potassium 3.8 mmol/L (3.5-5.5); Sodium 139 mmol/L (135-145); Total Bilirubin 0.4 mg/dL (0.2-1.2); Total Protein 6.1 g/dL (6.2-8.2); Triglycerides <50.0 mg/dL (0.0-149.0); VLDL Calculation 9.98 mg/dL (5.00-40.00)
[2019-01-17 15:26] LABS: Hemoglobin A1C 7.6 % (4.0-6.0)
== END ==
LOC: LABWHC1 07:58
PROVIDERS: ATTEND Internal Medicine Endocrinology, Diabetes & Metabolism
DX: E10.65 Type 1 diabetes mellitus with hyperglycemia (principal); E03.8 Other specified hypothyroidism
CPT/HCPCS: 36415; 80053; 80061; 82043; 82570; 83036; 84443

== ENCOUNTER → 2019-08-23 | Outpatient (CLI) | payer BC ==
[2019-08-23 16:54] LABS: ALT 21 U/L (8-44); AST 19 U/L (13-35); African American GFR (CKD) 117.1 (60.0-200.0); Albumin/Globulin Ratio 2.25 (1.60-3.17); Alkaline Phosphatase 64 U/L (41-126); BUN/Creat Ratio 24.29 Ratio (12.00-20.00); Carbon Dioxide 28.4 mmol/L (21.6-31.8); Chloride 106 mmol/L (96-109); Chol/HDL Ratio 2.38; Cholesterol 181 mg/dL (0-200); Glucose 65 mg/dL (70-110); Potassium 4.1 mmol/L (3.5-5.5); Sodium 141 mmol/L (135-145); Total Protein 6.5 g/dL (6.2-8.2); Triglycerides <50.0 mg/dL (0.0-149.0)
== END | disposition home or self-care (01) ==
LOC: LABWHC1 08:24
PROVIDERS: ATTEND Internal Medicine Endocrinology, Diabetes & Metabolism
DX: E10.65 Type 1 diabetes mellitus with hyperglycemia (principal)
CPT/HCPCS: 36415; 80053; 80061; 82043; 82570; 83036

== ENCOUNTER → 2019-12-12 | Outpatient (CLI) | payer BC ==
--- NOTE | 2019-12-12 13:42 | MM ---
Reason for exam: screening (asymptomatic). Last mammogram was performed 1 year and 2 months ago. History: Patient is postmenopausal. Family history of breast cancer in grandmother at age 70. Physical Findings: A clinical breast exam by your physician is recommended on an annual basis and results should be correlated with mammographic findings. MG Screening Mammo w CAD Bilateral CC, MLO, and XCCL view(s) were taken. Prior study comparison: October 22, 2018, left breast MG 3d work up w/cad LT. September 30, 2018, bilateral MG screening mammo w CAD. The breast tissue is extremely dense which could obscure a lesion on mammography. There is no discrete abnormality. No significant changes when compared with prior studies. ASSESSMENT: Negative, BI-RAD 1 RECOMMENDATION: Routine screening mammogram of both breasts in 1 year.
== END | disposition home or self-care (01) ==
LOC: RADMAMWWP 07:03
PROVIDERS: ATTEND Family Medicine
DX: Z12.31 Encounter for screening mammogram for malignant neoplasm of breast (principal)
CPT/HCPCS: 77067

== ENCOUNTER → 2020-08-10 | Outpatient (CLI) | payer BC ==
[2020-08-10 10:43] LABS: ALT 30 U/L (8-44); AST 22 U/L (13-35); African American GFR (CKD) 116.3 (60.0-200.0); Alkaline Phosphatase 70 U/L (41-126); BUN/Creat Ratio 24.29 Ratio (12.00-20.00); Calcium 9.2 mg/dL (8.7-10.3); Carbon Dioxide 29.4 mmol/L (21.6-31.8); Chloride 106 mmol/L (96-109); Chol/HDL Ratio 2.46; Cholesterol 175 mg/dL (0-200); Glucose 76 mg/dL (70-110); Non-African American GFR(CKD) 100.3 (60.0-200.0); Potassium 3.9 mmol/L (3.5-5.5); Sodium 142 mmol/L (135-145); Total Bilirubin 0.7 mg/dL (0.2-1.2); Total Protein 6.4 g/dL (6.2-8.2); Triglycerides <50.0 mg/dL (0.0-149.0)
[2020-08-10 14:38] LABS: Hemoglobin A1C 7.5 % (4.0-6.0)
[2020-08-10 15:40] LABS: Urine Creatinine 93.8 mg/dL
== END | disposition home or self-care (01) ==
LOC: LABWHC1 07:14
PROVIDERS: ATTEND Internal Medicine Endocrinology, Diabetes & Metabolism
DX: E10.65 Type 1 diabetes mellitus with hyperglycemia (principal)
CPT/HCPCS: 36415; 80053; 80061; 82043; 82570; 83036; 84443

== ENCOUNTER 2020-08-16 12:06 | Emergency (ER) | payer BC ==
[2020-08-16 12:36] VITALS: TEMP 98.7
[2020-08-16] MEDS ORDERED: MORPHINE SULFATE 4 MG/ML SYRINGE IV STA (13:11)
[2020-08-16] MEDS ORDERED: ONDANSETRON 4 MG/2 ML VIAL IVP STA (13:11)
[2020-08-16] MEDS ORDERED: PANTOPRAZOLE 40 MG/10 ML VIAL IVP STA (13:11)
[2020-08-16] MEDS ORDERED: SODIUM CHLORIDE 0.9% 1,000 ML IV STA (13:11)
--- NOTE | 2020-08-16 13:21 | ED ---
General Adult HPI - General Chief complaint: Nausea/Vomiting/Diarrhea Stated complaint: NVD Time Seen by Provider: 08/16/20 13:02 Source: patient, RN notes reviewed, old records reviewed Mode of arrival: wheelchair Limitations: no limitations - History of Present Illness Initial comments: 50-year-old female presenting for evaluation of abdominal pain and vomiting. Pain is epigastric. His been ongoing for the past several days. She's had several episodes of vomiting. No diarrhea. Additionally she complains of some bilateral low back pain. No dysuria or hematuria. No fever. No chest pain. Previous abdominal histories include hysterectomy. - Related Data Home Medications Medication Instructions Recorded Confirmed INSULIN ASPART (NovoLOG) [NovoLOG See Protocol SQ AC-TID 03/02/14 08/16/20 (formulary)] Insulin Degludec [Tresiba 18 unit SQ QAM 06/18/17 08/16/20 Flextouch U-100] Levothyroxine Sodium [Synthroid] 150 mcg PO DAILY 06/21/17 08/16/20 lisinopriL [Zestril] 5 mg PO DAILY 08/16/20 08/16/20 Previous Rx's Medication Instructions Recorded Acetaminophen-Codeine 300-30mg 1 tab PO Q6H PRN 3 Days #12 tablet 08/16/20 [Tylenol w/codeine #3] Allergies Allergy/AdvReac Type Severity Reaction Status Date / Time No Known Allergies Allergy Verified 08/16/20 13:49 Review of Systems ROS Statement: Those systems with pertinent positive or pertinent negative responses have been documented in the HPI. ROS Other: All systems not noted in ROS Statement are negative. Past Medical History Past Medical History: Diabetes Mellitus, Thyroid Disorder Additional Past Medical History / Comment(s): Atopic DERMATITIS. HX THYROIDECTOMY D/T NODULES. uterine fibriods, heavy irregular menstrual periods History of Any Multi-Drug Resistant Organisms: None Reported Past Surgical History: Section, Tubal Ligation Additional Past Surgical History / Comment(s): THYROIDECTOMY. Past Anesthesia/Blood Transfusion Reactions: No Reported Reaction Past Psychological History: No Psychological Hx Reported Past Alcohol Use History: Occasional - Past Family History Mother Family Medical History: Cancer Additional Family Medical History / Comment(s): brain. DM runs in the family General Exam Limitations: no limitations General appearance: alert, in no apparent distress Head exam: Present: atraumatic, normocephalic Eye exam: Present: normal appearance, PERRL ENT exam: Present: mucous membranes dry Neck exam: Present: normal inspection. Absent: tenderness, meningismus Respiratory exam: Present: normal lung sounds bilaterally. Absent: respiratory distress, wheezes Cardiovascular Exam: Present: regular rate, normal rhythm GI/Abdominal exam: Present: soft, distended, tenderness. Absent: guarding, rebound Extremities exam: Present: normal inspection, normal capillary refill. Absent: pedal edema Back exam: Present: normal inspection, full ROM Neurological exam: Present: alert, oriented X3, CN II-XII intact. Absent: motor sensory deficit Psychiatric exam: Present: normal affect, normal mood Skin exam: Present: warm, dry, intact. Absent: cyanosis, diaphoretic Course Vital Signs 08/16/20 12:32 Temperature 98.7 F Pulse Rate 85 Respiratory 18 Rate Blood Pressure 99/60 O2 Sat by Pulse 99 Oximetry Medical Decision Making - Medical Decision Making 50-year-old female presenting with epigastric abdominal pain. Patient has tenderness and distention in the abdomen on initial evaluation. She has stable vitals. Workup is initiated She has a normal CBC, CMP showing acidosis with a CO2 of 20, normal anion gap, elevated blood sugar. Normal lactic acid. She has urinalysis showing 4+ ketones which is consistent with her vomiting that she's had for the past several days. Her CT shows a very large right-sided renal cyst measuring 10 x 11. I did discuss the case with Dr. Alex bosch for urology. He does not feel this is contributing to the patient's pain. Patient is informed of this imaging abnormality. She has normal kidney function. After initial treatment she feels much better no further pain. No further vomiting. I did offer observation for continued symptomatic control and rehydration. Patient prefers to be discharged home. She will follow with her primary care physician. She will return with any worsening or changing symptoms. - Lab Data Result diagrams: 08/16/20 13:14 08/16/20 13:14 Lab Results 08/16/20 08/16/20 08/16/20 Range/Units 13:14 13:14 13:14 WBC 4.8 (3.8-10.6) k/uL RBC 4.83 (3.80-5.40) m/uL Hgb 14.9 (11.4-16.0) gm/dL Hct 42.2 (34.0-46.0) % MCV 87.4 (80.0-100.0) fL MCH 30.7 (25.0-35.0) pg MCHC 35.2 (31.0-37.0) g/dL RDW 12.2 (11.5-15.5) % Plt Count 238 (150-450) k/uL MPV 7.2 Neutrophils % 82 % Lymphocytes % 8 % Monocytes % 6 % Eosinophils % 1 % Basophils % 2 % Neutrophils # 3.9 (1.3-7.7) k/uL Lymphocytes # 0.4 L (1.0-4.8) k/uL Monocytes # 0.3 (0-1.0) k/uL Eosinophils # 0.0 (0-0.7) k/uL Basophils # 0.1 (0-0.2) k/uL PT 10.3 (9.0-12.0) sec INR 1.0 (<1.2) APTT 23.8 (22.0-30.0) sec Sodium 135 L (137-145) mmol/L Potassium 4.7 (3.5-5.1) mmol/L Chloride 107 (98-107) mmol/L Carbon Dioxide 20 L (22-30) mmol/L Anion Gap 8 mmol/L BUN 18 H (7-17) mg/dL Creatinine 0.53 (0.52-1.04) mg/dL Est GFR (CKD-EPI)AfAm >90 (>60 ml/min/1.73 sqM) Est GFR (CKD-EPI)NonAf >90 (>60 ml/min/1.73 sqM) Glucose 271 H (74-99) mg/dL Plasma Lactic Acid Stephane (0.7-2.0) mmol/L Calcium 8.8 (8.4-10.2) mg/dL Total Bilirubin 0.5 (0.2-1.3) mg/dL AST 25 (14-36) U/L ALT 24 (4-34) U/L Alkaline Phosphatase 70 (38-126) U/L Troponin I (0.000-0.034) ng/mL Total Protein 6.9 (6.3-8.2) g/dL Albumin 4.2 (3.5-5.0) g/dL Amylase 32 (30-110) U/L Lipase 43 (23-300) U/L Urine Color Urine Appearance (Clear) Urine pH (5.0-8.0) Ur Specific [place] (1.001-1.035) Urine Protein (Negative) Urine Glucose (UA) (Negative) Urine Ketones (Negative) Urine Blood (Negative) Urine Nitrite (Negative) Urine Bilirubin (Negative) Urine Urobilinogen (<2.0) mg/dL Ur Leukocyte Esterase (Negative) 08/16/20 08/16/20 08/16/20 Range/Units 13:14 13:14 14:33 WBC (3.8-10.6) k/uL RBC (3.80-5.40) m/uL Hgb (11.4-16.0) gm/dL Hct (34.0-46.0) % MCV (80.0-100.0) fL MCH (25.0-35.0) pg MCHC (31.0-37.0) g/dL RDW (11.5-15.5) % Plt Count (150-450) k/uL MPV Neutrophils % % Lymphocytes % % Monocytes % % Eosinophils % % Basophils % % Neutrophils # (1.3-7.7) k/uL Lymphocytes # (1.0-4.8) k/uL Monocytes # (0-1.0) k/uL Eosinophils # (0-0.7) k/uL Basophils # (0-0.2) k/uL PT (9.0-12.0) sec INR (<1.2) APTT (22.0-30.0) sec Sodium (137-145) mmol/L Potassium (3.5-5.1) mmol/L Chloride (98-107) mmol/L Carbon Dioxide (22-30) mmol/L Anion Gap mmol/L BUN (7-17) mg/dL Creatinine (0.52-1.04) mg/dL Est GFR (CKD-EPI)AfAm (>60 ml/min/1.73 sqM) Est GFR (CKD-EPI)NonAf (>60 ml/min/1.73 sqM) Glucose (74-99) mg/dL Plasma Lactic Acid Stephane 1.2 (0.7-2.0) mmol/L Calcium (8.4-10.2) mg/dL Total Bilirubin (0.2-1.3) mg/dL AST (14-36) U/L ALT (4-34) U/L Alkaline Phosphatase (38-126) U/L Troponin I <0.012 (0.000-0.034) ng/mL Total Protein (6.3-8.2) g/dL Albumin (3.5-5.0) g/dL Amylase (30-110) U/L Lipase (23-300) U/L Urine Color Yellow Urine Appearance Clear (Clear) Urine pH 6.5 (5.0-8.0) Ur Specific [place] 1.038 H (1.001-1.035) Urine Protein Trace H (Negative) Urine Glucose (UA) 4+ H (Negative) Urine Ketones 4+ H (Negative) Urine Blood Negative (Negative) Urine Nitrite Negative (Negative) Urine Bilirubin Negative (Negative) Urine Urobilinogen <2.0 (<2.0) mg/dL Ur Leukocyte Esterase Negative (Negative) Disposition Clinical Impression: Renal cyst, Abdominal pain Disposition: HOME SELF-CARE Condition: Fair Instructions (If sedation given, give patient instructions): Abdominal Pain (ED), Kidney Cyst (ED) Prescriptions: Acetaminophen-Codeine 300-30mg [Tylenol w/codeine #3] 1 tab PO Q6H PRN 3 Days #12 tablet PRN Reason: Pain Is patient prescribed a controlled substance at d/c from ED?: No Referrals: Helen Villatoro MD [Primary Care Provider] - 1-2 days Time of Disposition: 15:44
[2020-08-16 13:24] LABS: Basophils # (A) 0.1 k/uL (0-0.2); Basophils % (A) 2 %; Eosinophils % (A) 1 %; HCT 42.2 % (34.0-46.0); HGB 14.9 gm/dL (11.4-16.0); Lymphocytes # (A) 0.4 k/uL (1.0-4.8); Lymphocytes % (A) 8 %; MCH 30.7 pg (25.0-35.0); MCHC 35.2 g/dL (31.0-37.0); MCV 87.4 fL (80.0-100.0); Mean Platelet Volume 7.2; Monocytes # (A) 0.3 k/uL (0-1.0); Monocytes % (A) 6 %; Neutrophils # (A) 3.9 k/uL (1.3-7.7); Neutrophils % (A) 82 %; Platelet Count 238 k/uL (150-450); RBC 4.83 m/uL (3.80-5.40); RDW 12.2 % (11.5-15.5); WBC 4.8 k/uL (3.8-10.6)
[2020-08-16 13:35] LABS: ALT 24 U/L (4-34); AST 25 U/L (14-36); African American GFR (CKD) >90 (>60 ml/min/1.73 sqM); Albumin 4.2 g/dL (3.5-5.0); Alkaline Phosphatase 70 U/L (38-126); Amylase 32 U/L (30-110); Anion Gap 8 mmol/L; Blood Urea Nitrogen 18 mg/dL (7-17); Calcium 8.8 mg/dL (8.4-10.2); Carbon Dioxide 20 mmol/L (22-30); Chloride 107 mmol/L (98-107); Glucose 271 mg/dL (74-99); Lipase 43 U/L (23-300); Non-African American GFR(CKD) >90 (>60 ml/min/1.73 sqM); Potassium 4.7 mmol/L (3.5-5.1); Sodium 135 mmol/L (137-145); Total Bilirubin 0.5 mg/dL (0.2-1.3); Total Protein 6.9 g/dL (6.3-8.2)
[2020-08-16 13:48] LABS: Partial Thromboplastin Time 23.8 sec (22.0-30.0); Prothrombin Time 10.3 sec (9.0-12.0)
--- NOTE | 2020-08-16 14:13 | XR ---
KUB HISTORY: Nausea and vomiting, pain Frontal KUB submitted Lung bases are partially visualized and unremarkable. There is no evident bowel obstruction or pneumo peritoneum, no pathologic calcification. Bone mineralization is normal. IMPRESSION: No acute abnormalities evident.
[2020-08-16 14:52] LABS: Appearance,Urine Clear (Clear); Bilirubin,Urine Negative (Negative); Blood,Urine Negative (Negative); Color,Urine Yellow; Glucose,Urine (UA) 4+ (Negative); Leukocyte Esterase,Urine Negative (Negative); Nitrite,Urine Negative (Negative); PH, Urine 6.5 (5.0-8.0); Protein,Urine Trace (Negative); Specific Gravity,Urine 1.038 (1.001-1.035); Urobilinogen,Urine <2.0 mg/dL (<2.0)
--- NOTE | 2020-08-16 15:01 | CT ---
EXAMINATION TYPE: CT abdomen pelvis w con DATE OF EXAM: 08/16/2020 COMPARISON: None HISTORY: Abdominal pain, nausea, vomitting and diarrhea CT DLP: 648.7 mGycm CONTRAST: CT scan of the abdomen and pelvis is performed without Oral Contrast and with IV Contrast, patient in jected with 100 ml mL of Isovue 300. FINDINGS: LUNG BASES-: No visible nodule. No infiltrate. Small sliding-type hernia. LIVER/GB: No calcified gallstones. Hepatic cysts are noted scattered within the liver. Biliary tree is of normal caliber. PANCREAS: No inflammation. No distinct mass. SPLEEN: No splenic enlargement. No lesion seen. ADRENALS: No nodule. No thickening. 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 There is mild fullness o f the right renal collecting system however I do not see evidence for obstructing calculus at this ti me. Urinary bladder grossly unremarkable. BOWEL: Normal appendix. Normal bowel caliber. No inflammation. GENITAL ORGANS: No gross abnormality. LYMPH NODES: No greater than 1cm abdominal or pelvic lymph nodes are appreciated. AORTA: No significant abnormality. OSSEOUS STRUCTURES: No significant abnormality is seen. OTHER: No significant additional abnormality is seen. IMPRESSION: 1. 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 There is mild fullness of the right renal collecting system without obstru ctive change. Normal perfusion is noted to the right kidney. 2. Sliding-type hiatal hernia. 3. Renal cysts. 4 no evidence for acute inflammatory process.
[2020-08-16 15:14] LABS: Ketones,Urine 4+ (Negative)
[2020-08-16 16:05] VITALS: BP 137/82; PULSE 86; RESP 16
== END 2020-08-16 16:03 | disposition home or self-care (01) ==
LOC: EC 12:06
DX: N28.1 Cyst of kidney, acquired (principal); E87.2 Acidosis; E11.65 Type 2 diabetes mellitus with hyperglycemia; E07.9 Disorder of thyroid, unspecified; Z79.899 Other long term (current) drug therapy; Z79.4 Long term (current) use of insulin; Z79.890 Hormone replacement therapy; Z90.710 Acquired absence of both cervix and uterus; Z98.51 Tubal ligation status
CPT/HCPCS: 36415; 80053; 82150; 83605; 83690; 84484; 85025; 85610; 85730; 81003; 74018; 74177; 99285; 96374; 96375 ×2; 96361 ×3; J2270; J2405; C9113; Q9967

== ENCOUNTER 2020-08-18 13:54 | Inpatient (IN) | payer BC ==
[2020-08-18] MEDS ORDERED: SODIUM CHLORIDE 0.9% 1,000 ML IV STA (15:45)
[2020-08-18] MEDS ORDERED: HYDROmorphone 0.5 MG/0.5 ML SYRINGE IVP STA (15:45)
--- NOTE | 2020-08-18 15:50 | ED ---
General Adult HPI - General Chief complaint: Abdominal Pain Stated complaint: Abd pain/Back pain Time Seen by Provider: 08/18/20 14:47 Source: patient, RN notes reviewed Mode of arrival: ambulatory Limitations: no limitations - History of Present Illness Initial comments: 50 year old female presents to the emergency room for a chief complaint of back and abdominal pain. Patient reports that she has had upper abdominal pain for about 4-5 days now. Patient reports it was in the center of her upper abdomen and now is more on the left side. Patient states he does radiate to her back. Patient does have nausea vomiting however this has improved over the past couple days. Denies diarrhea. Patient does not have a history of abdominal surgeries. She denies any fevers at home. 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 Mild fullness of the right renal collecting system without obstructive change. Normal perfusion noted to the right kidney. There is also a sliding hiatal hernia. No acute inflammatory process. It was felt that at that time her pain was not related to her kidney after speaking with urology. Patient has no other complaints at this time including shortness of breath, chest pain, headache, or visual changes. - Related Data Home Medications Medication Instructions Recorded Confirmed INSULIN ASPART (NovoLOG) [NovoLOG See Protocol SQ AC-TID 03/02/14 08/18/20 (formulary)] Insulin Degludec [Tresiba 18 unit SQ QAM 06/18/17 08/18/20 Flextouch U-100] Levothyroxine Sodium [Synthroid] 150 mcg PO DAILY 06/21/17 08/18/20 lisinopriL [Zestril] 5 mg PO DAILY 08/16/20 08/18/20 Previous Rx's Medication Instructions Recorded Acetaminophen-Codeine 300-30mg 1 tab PO Q6H PRN 3 Days #12 tablet 08/16/20 [Tylenol w/codeine #3] Allergies Allergy/AdvReac Type Severity Reaction Status Date / Time No Known Allergies Allergy Verified 08/18/20 16:41 Review of Systems ROS Statement: Those systems with pertinent positive or pertinent negative responses have been documented in the HPI. ROS Other: All systems not noted in ROS Statement are negative. Past Medical History Past Medical History: Diabetes Mellitus, Thyroid Disorder Additional Past Medical History / Comment(s): Atopic DERMATITIS. HX THYROIDECTOMY D/T NODULES. uterine fibriods, heavy irregular menstrual periods History of Any Multi-Drug Resistant Organisms: None Reported Past Surgical History: Section, Tubal Ligation Additional Past Surgical History / Comment(s): THYROIDECTOMY. Past Anesthesia/Blood Transfusion Reactions: No Reported Reaction Past Psychological History: No Psychological Hx Reported Smoking Status: Current every day smoker Past Alcohol Use History: Occasional Past Drug Use History: None Reported - Past Family History Mother Family Medical History: Cancer Additional Family Medical History / Comment(s): brain. DM runs in the family General Exam Limitations: no limitations General appearance: alert, in no apparent distress Head exam: Present: atraumatic, normocephalic, normal inspection Eye exam: Present: normal appearance ENT exam: Present: normal exam, mucous membranes moist Neck exam: Present: normal inspection, full ROM. Absent: tenderness, meningismus, lymphadenopathy Respiratory exam: Present: normal lung sounds bilaterally. Absent: respiratory distress, wheezes, rales, rhonchi, stridor Cardiovascular Exam: Present: regular rate, normal rhythm, normal heart sounds. Absent: systolic murmur, diastolic murmur, rubs, gallop, clicks GI/Abdominal exam: Present: soft, tenderness (RUQ, RLQ, epigastric tenderness), normal bowel sounds. Absent: distended, guarding, rebound, rigid Course Vital Signs 08/18/20 08/18/20 14:12 16:23 Temperature 100.4 F H Pulse Rate 71 65 Respiratory 16 18 Rate Blood Pressure 127/69 140/65 O2 Sat by Pulse 97 96 Oximetry EKG Findings - EKG Comments: EKG Findings:: Normal sinus rhythm, ventricular rate 68, MN interval 138, QTC 438 Medical Decision Making - Medical Decision Making Vitals are stable. Patient does have a low-grade fever of 100.4. Patient has epigastric and right upper quadrant tenderness that has been ongoing for 5 days. She has also had vomiting. No other symptoms. CBC is unremarkable. CMP does show hyperglycemia, patient does have a history of insulin-dependent diabetes. Glucose of 4+ in the urine. 4+ ketones likely related to dehydration as well. 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 There is mild fullness of the right renal collecting system without obstructive changes. Normal perfusion is noted to the right kidney. On examination today patient had right upper quadrant tenderness therefore gallbladder ultrasound was performed which did not show evidence of acute cholecystitis. This is second visit to the ER for this and pain is intractable. Patient will be admitted with urology consultation. Covid test pending given low-grade temperature 100.4. - Lab Data Result diagrams: 08/18/20 16:04 08/18/20 16:04 Lab Results 08/18/20 08/18/20 08/18/20 Range/Units 16:04 16:04 16:04 WBC 6.2 (3.8-10.6) k/uL RBC 4.78 (3.80-5.40) m/uL Hgb 14.4 (11.4-16.0) gm/dL Hct 41.7 (34.0-46.0) % MCV 87.4 (80.0-100.0) fL MCH 30.2 (25.0-35.0) pg MCHC 34.5 (31.0-37.0) g/dL RDW 12.0 (11.5-15.5) % Plt Count 200 (150-450) k/uL MPV 7.4 Neutrophils % 79 % Lymphocytes % 11 % Monocytes % 6 % Eosinophils % 1 % Basophils % 1 % Neutrophils # 4.9 (1.3-7.7) k/uL Lymphocytes # 0.7 L (1.0-4.8) k/uL Monocytes # 0.4 (0-1.0) k/uL Eosinophils # 0.1 (0-0.7) k/uL Basophils # 0.1 (0-0.2) k/uL Sodium 136 L (137-145) mmol/L Potassium 4.2 (3.5-5.1) mmol/L Chloride 105 (98-107) mmol/L Carbon Dioxide 24 (22-30) mmol/L Anion Gap 7 mmol/L BUN 23 H (7-17) mg/dL Creatinine 0.58 (0.52-1.04) mg/dL Est GFR (CKD-EPI)AfAm >90 (>60 ml/min/1.73 sqM) Est GFR (CKD-EPI)NonAf >90 (>60 ml/min/1.73 sqM) Glucose 232 H (74-99) mg/dL Plasma Lactic Acid Stephane 0.9 (0.7-2.0) mmol/L Calcium 8.1 L (8.4-10.2) mg/dL Total Bilirubin 0.6 (0.2-1.3) mg/dL AST 22 (14-36) U/L ALT 22 (4-34) U/L Alkaline Phosphatase 63 (38-126) U/L Troponin I (0.000-0.034) ng/mL Total Protein 6.4 (6.3-8.2) g/dL Albumin 3.8 (3.5-5.0) g/dL Amylase 41 (30-110) U/L Lipase 111 (23-300) U/L Urine Color Urine Appearance (Clear) Urine pH (5.0-8.0) Ur Specific [place] (1.001-1.035) Urine Protein (Negative) Urine Glucose (UA) (Negative) Urine Ketones (Negative) Urine Blood (Negative) Urine Nitrite (Negative) Urine Bilirubin (Negative) Urine Urobilinogen (<2.0) mg/dL Ur Leukocyte Esterase (Negative) 08/18/20 08/18/20 Range/Units 16:04 16:13 WBC (3.8-10.6) k/uL RBC (3.80-5.40) m/uL Hgb (11.4-16.0) gm/dL Hct (34.0-46.0) % MCV (80.0-100.0) fL MCH (25.0-35.0) pg MCHC (31.0-37.0) g/dL RDW (11.5-15.5) % Plt Count (150-450) k/uL MPV Neutrophils % % Lymphocytes % % Monocytes % % Eosinophils % % Basophils % % Neutrophils # (1.3-7.7) k/uL Lymphocytes # (1.0-4.8) k/uL Monocytes # (0-1.0) k/uL Eosinophils # (0-0.7) k/uL Basophils # (0-0.2) k/uL Sodium (137-145) mmol/L Potassium (3.5-5.1) mmol/L Chloride (98-107) mmol/L Carbon Dioxide (22-30) mmol/L Anion Gap mmol/L BUN (7-17) mg/dL Creatinine (0.52-1.04) mg/dL Est GFR (CKD-EPI)AfAm (>60 ml/min/1.73 sqM) Est GFR (CKD-EPI)NonAf (>60 ml/min/1.73 sqM) Glucose (74-99) mg/dL Plasma Lactic Acid Stephane (0.7-2.0) mmol/L Calcium (8.4-10.2) mg/dL Total Bilirubin (0.2-1.3) mg/dL AST (14-36) U/L ALT (4-34) U/L Alkaline Phosphatase (38-126) U/L Troponin I <0.012 (0.000-0.034) ng/mL Total Protein (6.3-8.2) g/dL Albumin (3.5-5.0) g/dL Amylase (30-110) U/L Lipase (23-300) U/L Urine Color Yellow Urine Appearance Clear (Clear) Urine pH 6.0 (5.0-8.0) Ur Specific [place] 1.044 H (1.001-1.035) Urine Protein Trace H (Negative) Urine Glucose (UA) 4+ H (Negative) Urine Ketones 4+ H (Negative) Urine Blood Negative (Negative) Urine Nitrite Negative (Negative) Urine Bilirubin Negative (Negative) Urine Urobilinogen <2.0 (<2.0) mg/dL Ur Leukocyte Esterase Negative (Negative) Disposition Clinical Impression: Abdominal pain, Renal cyst, Diabetes mellitus Disposition: ADMITTED IP TO THIS HOSP Condition: Fair Is patient prescribed a controlled substance at d/c from ED?: No Referrals: Helen Villatoro MD [Primary Care Provider] - 1-2 days Time of Disposition: 17:40
[2020-08-18 16:24] LABS: Basophils # (A) 0.1 k/uL (0-0.2); Basophils % (A) 1 %; Eosinophils # (A) 0.1 k/uL (0-0.7); Eosinophils % (A) 1 %; HCT 41.7 % (34.0-46.0); HGB 14.4 gm/dL (11.4-16.0); Lymphocytes # (A) 0.7 k/uL (1.0-4.8); Lymphocytes % (A) 11 %; MCH 30.2 pg (25.0-35.0); MCHC 34.5 g/dL (31.0-37.0); MCV 87.4 fL (80.0-100.0); Mean Platelet Volume 7.4; Monocytes # (A) 0.4 k/uL (0-1.0); Monocytes % (A) 6 %; Neutrophils # (A) 4.9 k/uL (1.3-7.7); Neutrophils % (A) 79 %; Platelet Count 200 k/uL (150-450); RBC 4.78 m/uL (3.80-5.40); WBC 6.2 k/uL (3.8-10.6)
[2020-08-18] MEDS ORDERED: ACETAMINOPHEN TAB 500 MG TAB PO STA (16:24)
[2020-08-18 16:25] LABS: Appearance,Urine Clear (Clear); Bilirubin,Urine Negative (Negative); Blood,Urine Negative (Negative); Color,Urine Yellow; Glucose,Urine (UA) 4+ (Negative); Leukocyte Esterase,Urine Negative (Negative); Nitrite,Urine Negative (Negative); Protein,Urine Trace (Negative); Specific Gravity,Urine 1.044 (1.001-1.035); Urobilinogen,Urine <2.0 mg/dL (<2.0)
[2020-08-18 16:32] LABS: Ketones,Urine 4+ (Negative)
[2020-08-18 16:33] LABS: ALT 22 U/L (4-34); AST 22 U/L (14-36); African American GFR (CKD) >90 (>60 ml/min/1.73 sqM); Albumin 3.8 g/dL (3.5-5.0); Alkaline Phosphatase 63 U/L (38-126); Amylase 41 U/L (30-110); Anion Gap 7 mmol/L; Blood Urea Nitrogen 23 mg/dL (7-17); Calcium 8.1 mg/dL (8.4-10.2); Carbon Dioxide 24 mmol/L (22-30); Chloride 105 mmol/L (98-107); Glucose 232 mg/dL (74-99); Lipase 111 U/L (23-300); Non-African American GFR(CKD) >90 (>60 ml/min/1.73 sqM); Potassium 4.2 mmol/L (3.5-5.1); Sodium 136 mmol/L (137-145); Total Bilirubin 0.6 mg/dL (0.2-1.3); Total Protein 6.4 g/dL (6.3-8.2)
--- NOTE | 2020-08-18 17:11 | US ---
EXAMINATION TYPE: US gallbladder DATE OF EXAM: 08/18/2020 COMPARISON: CT 08/16/2020. CLINICAL HISTORY: Pain EXAM MEASUREMENTS: Liver Length: 10.0 cm Gallbladder Wall: 0.2 cm CBD: 0.4 cm Right Kidney: 10.6 x 5.3 x 5.6 cm Pt shaking during exam, limited visualization Pancreas: Obscured by bowel gas Liver: Multiple hyperechoic lesions scattered throughout liver, largest right lobe= 1.7 cm, may repr esent hemangiomas Gallbladder: Probable small anterior wall polyp= 2mm Evidence for sonographic Aguilar's sign: No CBD: wnl Right Kidney: Cyst lower pole= 10.5 x 8.1 x 12.9 cm IMPRESSION: No sonographic evidence of acute abnormality. Multiple hyperechoic hepatic lesions, corresponding to hypoattenuating foci on CT and most compatible with hemangiomas. Confirmation with MR may be obtained as clinically indicated. Redemonstrated benign-appearing large 13 cm right renal cyst. Probable small gallbladder polyp.
[2020-08-18] MEDS ORDERED: NALOXONE 0.4 MG/ML 1 ML VIAL IV PRN (17:36)
[2020-08-18] MEDS ORDERED: ACETAMINOPHEN TAB 325 MG TAB PO PRN (17:36)
[2020-08-18] MEDS: SODIUM CHLORIDE 0.9% 1,000 ML IV SCH (18:04)
[2020-08-18] MEDS: ONDANSETRON 4 MG/2 ML VIAL IVP PRN (19:40)
[2020-08-18 21:10] LABS: Glucose,Whole Blood 154 mg/dL (75-99)
[2020-08-18] MEDS: INSULIN ASPART (NovoLOG) 100 UNIT/ML VIAL SQ SCH (21:35)
[2020-08-18] MEDS: HYDROmorphone 0.5 MG/0.5 ML SYRINGE IVP PRN (23:42)
[2020-08-18 23:48] LABS: Glucose,Whole Blood 142 mg/dL (75-99)
--- NOTE | 2020-08-19 03:58 | P.HPIM ---
History of Present Illness H&P Date: 08/18/20 Chief Complaint: abd pain 50 year old female with DM patient comes in due to persistent abd pain for the past 4-5 days. pain described as sharp over the epigastric region and mid back. now progressed to 10/10 in severity, she noticed decrease in urine output , and was nauseated and vomiting today non bloody non bilious . no changes in BM. no fever or chills, until she got into the ED, now having low grade fever and chills. no specific aggrevating or alleviating factors. she denies any URI symptoms sick contacts, recent travel, chest pain or trouble breathing, denies any vaginal discharge or bleeding in the ED, she had US of the abd showing gall bladder polyps, multiple hyperechoic hepatic lesions, however liver enzymes within normal limits, and CT abd done few days ago was non specific also showed renal cyst 15 cm malrotated, and CT couple days ago also showed similar cyst about 11 cm in size. other blood work overall unremarkable Review of Systems Pertinent positives as noted in HPI. All other systems were reviewed and are negative Past Medical History Past Medical History: Diabetes Mellitus, Thyroid Disorder Additional Past Medical History / Comment(s): Atopic DERMATITIS. HX THYROIDECTOMY D/T NODULES. uterine fibriods, heavy irregular menstrual periods History of Any Multi-Drug Resistant Organisms: None Reported Past Surgical History: Section, Tubal Ligation Additional Past Surgical History / Comment(s): THYROIDECTOMY. Past Anesthesia/Blood Transfusion Reactions: No Reported Reaction Past Psychological History: No Psychological Hx Reported Smoking Status: Current every day smoker Past Alcohol Use History: Occasional Past Drug Use History: None Reported - Past Family History Mother Family Medical History: Cancer Additional Family Medical History / Comment(s): brain. DM runs in the family Medications and Allergies Home Medications Medication Instructions Recorded Confirmed Type INSULIN ASPART (NovoLOG) [NovoLOG See Protocol SQ AC-TID 03/02/14 08/18/20 History (formulary)] Insulin Degludec [Tresiba 18 unit SQ QAM 06/18/17 08/18/20 History Flextouch U-100] Levothyroxine Sodium [Synthroid] 150 mcg PO DAILY 06/21/17 08/18/20 History Acetaminophen-Codeine 300-30mg 1 tab PO Q6H PRN 3 Days #12 tablet 08/16/20 08/18/20 Rx [Tylenol w/codeine #3] lisinopriL [Zestril] 5 mg PO DAILY 08/16/20 08/18/20 History Allergies Allergy/AdvReac Type Severity Reaction Status Date / Time No Known Allergies Allergy Verified 08/18/20 16:41 Physical Exam Vitals: Vital Signs Temp Pulse Resp BP Pulse Ox 08/18/20 16:23 65 18 140/65 96 08/18/20 14:12 100.4 F H 71 16 127/69 97 Intake and Output 08/18/20 08/18/20 08/18/20 06:59 14:59 22:59 Other: Weight 62.596 kg Constitutional: No acute distress, conversant, pleasant Eyes: Anicteric sclerae, moist conjunctiva, no lid-lag Pupils equal round reactive to light ENMT: NC/AT Oropharynx clear, no erythema, exudates Neck: Supple, FROM, no masses, or JVD No carotid bruits No thyromegaly Lungs: Clear to auscultation Clear to percussion Normal respiratory effort, no accessory muscle use Cardiovascular: Heart regular in rate and rhythm, No murmurs, gallops, or rubs No peripheral edema Abdominal: Soft Tenderness to deep palpation of the abdomen especially over the right flank and right lower quadrant with right CVA tenderness to percussion, no guarding, rebound or rigidity Abdomen moving with respiration Normoactive bowel sounds No hepatomegaly, No splenomegaly No palpable mass No abdominal wall hernia noted Skin: Normal temperature, tone, texture, turgor No induration No subcutaneous nodules No rash, lesions No ulcers Extremities: No digital cyanosis No clubbing Pedal pulses intact and symmetrical Radial pulses intact and symmetrical No calf tenderness Psychiatric: Alert and oriented to person, place and time Appropriate affect fair judgement Neuro Muscles Strength 5/5 in all 4 extremities Sensation to light touch grossly present throughout Cranial nerves II-XII grossly intact No focal sensory deficits Lymphatics: no palpable cervical or supraclavicular , or inguinal lymph nodes Results CBC & Chem 7: 08/18/20 16:04 08/18/20 16:04 Labs: Abnormal Lab Results - Last 24 Hours (Table) 08/18/20 08/18/20 08/18/20 Range/Units 16:04 16:04 16:13 Lymphocytes # 0.7 L (1.0-4.8) k/uL Sodium 136 L (137-145) mmol/L BUN 23 H (7-17) mg/dL Glucose 232 H (74-99) mg/dL Calcium 8.1 L (8.4-10.2) mg/dL Ur Specific [place] 1.044 H (1.001-1.035) Urine Protein Trace H (Negative) Urine Glucose (UA) 4+ H (Negative) Urine Ketones 4+ H (Negative) Assessment and Plan Assessment: Abdominal pain possibly related to intra-abdominal renal cyst Follow-up cultures Follow-up signs Blood work unremarkable, IV fluid hydration Pain control Nothing by mouth Chronic conditions Hypothyroid Resume levothyroxine Diabetes mellitus Insulin sliding scale CODE STATUS: Full code DVT prophylaxis: Mechanical Discussed with: Patient, ER, RN Anticipated length of stay less than [address]: Home A total of 65 minutes was spent on the care of this complex patient more than 50% of the time was spent in counseling and care coordination.
[2020-08-19] MEDS: HYDROmorphone 0.5 MG/0.5 ML SYRINGE IVP PRN ×2 (05:27→21:30)
[2020-08-19] MEDS: ONDANSETRON 4 MG/2 ML VIAL IVP PRN ×3 (05:27→17:39)
[2020-08-19] MEDS: SODIUM CHLORIDE 0.9% 1,000 ML IV SCH ×3 (05:28→23:42)
[2020-08-19] MEDS: LEVOTHYROXINE 50 MCG TAB PO SCH (05:37)
[2020-08-19 07:14] LABS: Glucose,Whole Blood 165 mg/dL (75-99)
[2020-08-19] MEDS: lisinopriL 5 MG TAB PO SCH (10:25)
[2020-08-19] MEDS: INSULIN ASPART (NovoLOG) 100 UNIT/ML VIAL SQ SCH ×4 (10:25→21:31)
[2020-08-19 11:16] LABS: Glucose,Whole Blood 191 mg/dL (75-99)
[2020-08-19] MEDS ORDERED: PROCHLORPERAZINE INJ 10 MG/2 ML VIAL IVP PRN (12:39)
[2020-08-19 13:44] LABS: Prothrombin Time 10.7 sec (9.0-12.0)
[2020-08-19 17:08] LABS: Glucose,Whole Blood 212 mg/dL (75-99)
[2020-08-19 20:27] LABS: Glucose,Whole Blood 197 mg/dL (75-99)
[2020-08-20] MEDS: SODIUM CHLORIDE 0.9% 1,000 ML IV SCH ×3 (05:42→12:49)
[2020-08-20] MEDS: LEVOTHYROXINE 50 MCG TAB PO SCH (05:43)
[2020-08-20] MEDS: ONDANSETRON 4 MG/2 ML VIAL IVP PRN (05:44)
[2020-08-20 07:12] LABS: Glucose,Whole Blood 244 mg/dL (75-99)
[2020-08-20] MEDS: INSULIN ASPART (NovoLOG) 100 UNIT/ML VIAL SQ SCH ×4 (08:31→22:54)
[2020-08-20] MEDS: lisinopriL 5 MG TAB PO SCH (08:31)
[2020-08-20] MEDS: METOCLOPRAMIDE 5 MG/ML 2 ML VIAL IVP PRN ×2 (09:18→17:30)
[2020-08-20 12:15] LABS: Glucose,Whole Blood 239 mg/dL (75-99)
--- NOTE | 2020-08-20 15:39 | US ---
EXAMINATION TYPE: US renal cyst aspiration DATE OF EXAM: 08/20/2020 HISTORY: Abdominal pain, enlarged right renal cyst COMPARISON: CT 08/16/2020 PROCEDURE: Maximal barrier technique was utilized. The skin over suitable path to the large lower pole right re nal cyst was localized with ultrasound and the overlying skin prepped and draped. Lidocaine was used for local anesthesia. A skin nilson made with a scalpel. Access was gained using ultrasound guidance with a 6 Turkmen catheter over guide needle, the catheter was advanced and needle removed following r eturn of fluid in the hub of the needle. Catheter attached to suction to the fluid was removed. No immediate complication. 650 cc serous fluid removed. The patient remained in stable condition. IMPRESSION: STATUS POST ultrasound guided right renal cyst drainage. THIS PROCEDURE WAS PERFORMED BY THE [facility].
--- NOTE | 2020-08-20 15:47 | P.PN ---
Subjective Progress Note Date: 08/20/20 Patient continues to have severe nausea and vomiting. He denies any abdominal pain. She is passing gas and had one episode of diarrhea this morning. Objective - Vital Signs Vital signs: Vital Signs Temp 98.4 F 08/20/20 10:23 Pulse 86 08/20/20 12:38 Resp 18 08/20/20 12:38 BP 122/69 08/20/20 12:38 Pulse Ox 97 08/20/20 11:10 Intake & Output 08/19/20 08/20/20 08/20/20 18:59 06:59 18:59 Intake Total 1210 360 Output Total 600 100 Balance -600 1110 360 Intake: Intake, IV Titration 960 Amount Sodium Chloride 0.9% 1, 960 000 ml @ 120 mls/hr IV . Q8H20M [facility] Rx#:[id number] Oral 250 360 Output: Emesis 600 100 Other: Voiding Method Toilet # Voids 2 1 1 # Bowel Movements 1 - Exam General: The patient is awake and alert, in no distress Eye: there is normal conjunctiva bilaterally. Neck: The neck is supple, there is no JVD. Cardiovascular: Normal S1-S2, no S3-S4, no murmurs. Respiratory: Lungs clear to auscultation bilaterally Gastrointestinal: Abdomen is soft, nontender Musculoskeletal: There is no pedal edema. Neurological:. Speech is normal. Skin: Skin is warm and dry - Labs CBC & Chem 7: 08/18/20 16:04 08/18/20 16:04 Labs: Abnormal Lab Results - Last 24 Hours (Table) 08/19/20 08/19/20 08/20/20 Range/Units 17:05 20:05 07:11 POC Glucose (mg/dL) 212 H 197 H 244 H (75-99) mg/dL 08/20/20 Range/Units 12:13 POC Glucose (mg/dL) 239 H (75-99) mg/dL Assessment and Plan Assessment: This is a 50-year-old female with past medical history noted below presented to the emergency room with worsening abdominal pain, nausea, and vomiting. Patient was evaluated in the ER currently admitted to the hospital for further management of her medical problems noted below. 1. 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 Status post IR guided cyst drainage with approximately 650 mL drained 2. Severe nausea and vomiting with diarrhea, suspected acute viral gastroenteritis. Covid19 screen negative 3. Multiple hyper echoic liver lesions suspected for hemangioma. May require MRI for further evaluation 4. Chronic medical problems, hypothyroidism, type 2 diabetes. Continue home medication, sliding scale insulin Today, I reviewed her medication list and lab work results. Patient remained very nauseous. Continue symptomatic management. Advance diet as tolerated.
--- NOTE | 2020-08-20 16:23 | P.PN ---
Subjective Progress Note Date: 08/20/20 Still having abdominal pain, complains of nausea with vomiting Objective - Vital Signs Vital signs: Vital Signs Temp 98.4 F 08/20/20 10:23 Pulse 86 08/20/20 12:38 Resp 18 08/20/20 12:38 BP 122/69 08/20/20 12:38 Pulse Ox 97 08/20/20 11:10 Intake & Output 08/19/20 08/20/20 08/20/20 18:59 06:59 18:59 Intake Total 1210 1320 Output Total 600 100 Balance -600 1110 1320 Intake: Intake, IV Titration 960 960 Amount Sodium Chloride 0.9% 1, 960 960 000 ml @ 120 mls/hr IV . Q8H20M [facility] Rx#:[id number] Oral 250 360 Output: Emesis 600 100 Other: Voiding Method Toilet # Voids 2 1 3 # Bowel Movements 1 - Constitutional General appearance: Present: mild distress - Gastrointestinal General gastrointestinal: Present: soft, tenderness (LUQ) - Psychiatric Psychiatric: Present: A&O x's 3 - Labs CBC & Chem 7: 08/18/20 16:04 08/18/20 16:04 Labs: Abnormal Lab Results - Last 24 Hours (Table) 08/19/20 08/19/20 08/20/20 Range/Units 17:05 20:05 07:11 POC Glucose (mg/dL) 212 H 197 H 244 H (75-99) mg/dL 08/20/20 Range/Units 12:13 POC Glucose (mg/dL) 239 H (75-99) mg/dL Assessment and Plan Assessment: 50-year-old female presents ED with abdominal pain, bilateral flank pain. She had a CT scan demonstrating 11 cm renal cyst. Pain is an ongoing for a week, she had 2 ED presentation secured to pain. All her other workup has been negative except for the large renal cyst. I discussed with her the option of draining the cyst. Discussed with her that her pain might persist even with cyst drainage. Discussed with her that given that all her other workup has been negative we can attempt to drain the cyst assess improvement of her pain. Discussed with her the risk which includes but not limited to bleeding, infection, recurrence. I also discussed with him alternative of doing a robotic cyst decortication. But discussed with her we can start with drainage and amanda her symptoms, if improved, and if there is a recurrence of the cyst after drainage then we can consider a robotic cyst decortication in the future. she understood all the risk and agreed Plan: -IR consultation today for renal cyst aspiration
[2020-08-20 16:45] LABS: Glucose,Whole Blood 233 mg/dL (75-99)
[2020-08-20 21:40] VITALS: RESP 16
[2020-08-20 21:44] LABS: Glucose,Whole Blood 229 mg/dL (75-99)
[2020-08-21 04:57] VITALS: BP 159/82; PULSE 77; TEMP 98.3
[2020-08-21] MEDS: LEVOTHYROXINE 50 MCG TAB PO SCH (06:05)
[2020-08-21 06:56] LABS: Glucose,Whole Blood 225 mg/dL (75-99)
[2020-08-21] MEDS: INSULIN ASPART (NovoLOG) 100 UNIT/ML VIAL SQ SCH (07:51)
--- NOTE | 2020-08-21 09:17 | P.DS ---
Providers Date of admission: 08/21/20 07:53 Expected date of discharge: 08/21/20 Attending physician: Faith Ware DO Consults: 08/18/20 17:36 Consult Physician Routine Consulting Provider: Cameron Johnson Consult Reason/Comments: renal cyst, intractable pain Do you want consulting provider notified?: Yes Primary care physician: Helen [facility] Course: This is a 50-year-old female with past medical history noted below presented to the emergency room with worsening abdominal pain, nausea, and vomiting. Patient was evaluated in the ER currently admitted to the hospital for further management of her medical problems noted below. 1. 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 Status post IR guided cyst drainage with approximately 650 mL drained. Follow-up with urology as directed in one week 2. Severe nausea and vomiting with diarrhea, suspected acute viral gastroenteritis. Covid19 screen negative. Improved with symptomatic management. Encouraged oral hydration. Zofran as needed 3. Multiple hyper echoic liver lesions suspected for hemangioma. May require MRI for further evaluation. Follow-up with PCP as directed 4. Chronic medical problems, hypothyroidism, type 2 diabetes. Continue home medication Patient will be discharged home in a stable condition. For further details about this hospitalization please refer to the electronic chart. Time spent on discharge > 30 minutes including counseling and coordination of care Patient Condition at Discharge: Fair Plan - Discharge Summary New Discharge Prescriptions: New Ondansetron HCl [Zofran] 4 mg PO Q8H PRN #30 tab PRN Reason: Nausea And Vomiting Continue INSULIN ASPART (NovoLOG) [NovoLOG (formulary)] See Protocol SQ AC-TID Insulin Degludec [Tresiba Flextouch U-100] 18 unit SQ QAM Levothyroxine Sodium [Synthroid] 150 mcg PO DAILY lisinopriL [Zestril] 5 mg PO DAILY Acetaminophen-Codeine 300-30mg [Tylenol w/codeine #3] 1 tab PO Q6H PRN 3 Days #12 tablet PRN Reason: Pain Discharge Medication List INSULIN ASPART (NovoLOG) [NovoLOG (formulary)] See Protocol SQ AC-TID 03/02/14 [History] Insulin Degludec [Tresiba Flextouch U-100] 18 unit SQ QAM 06/18/17 [History] Levothyroxine Sodium [Synthroid] 150 mcg PO DAILY 06/21/17 [History] Acetaminophen-Codeine 300-30mg [Tylenol w/codeine #3] 1 tab PO Q6H PRN 3 Days #12 tablet 08/16/20 [Rx] lisinopriL [Zestril] 5 mg PO DAILY 08/16/20 [History] Ondansetron HCl [Zofran] 4 mg PO Q8H PRN #30 tab 08/21/20 [Rx] Follow up Appointment(s)/Referral(s): Cameron Johnson MD [STAFF PHYSICIAN] - 1 Week Helen Villatoro MD [Primary Care Provider] - 3 Days Discharge Disposition: HOME SELF-CARE
[2020-08-21] MEDS: lisinopriL 5 MG TAB PO SCH (09:49)
[2020-08-21] MEDS: METOCLOPRAMIDE 5 MG/ML 2 ML VIAL IVP PRN (09:51)
== END 2020-08-21 11:40 | disposition home or self-care (01) | DRG 700 ==
LOC: EC 13:54 → 4SSUR 17:28 → 6NMEDSUR 23:04 → OBSVTOIN 08-21 07:53
PROVIDERS: ADMIT Internal Medicine; ATTEND Internal Medicine
PROC: 0T903ZZ Drainage of Right Kidney, Percutaneous Approach (ICD-10-PCS; principal; 2020-08-20)
DX: N28.1 Cyst of kidney, acquired (principal); A08.4 Viral intestinal infection, unspecified; E86.0 Dehydration; Z79.4 Long term (current) use of insulin; E11.9 Type 2 diabetes mellitus without complications; Z20.828 Contact with and (suspected) exposure to other viral communicable diseases; K82.4 Cholesterolosis of gallbladder; E89.0 Postprocedural hypothyroidism; K44.9 Diaphragmatic hernia without obstruction or gangrene; M54.9 Dorsalgia, unspecified; N92.6 Irregular menstruation, unspecified; D25.9 Leiomyoma of uterus, unspecified; K76.9 Liver disease, unspecified; L20.9 Atopic dermatitis, unspecified; F17.210 Nicotine dependence, cigarettes, uncomplicated; Z79.890 Hormone replacement therapy; Z79.899 Other long term (current) drug therapy; Z98.891 History of uterine scar from previous surgery; Z98.51 Tubal ligation status; Z83.3 Family history of diabetes mellitus; Z80.8 Family history of malignant neoplasm of other organs or systems
CPT/HCPCS: 36415; 50390; 76705; 80053; 81003; 82150; 83605; 83690; 83735; 84484; 85025; 85610; 87040; 87635; 93005; 96361; 96374; 99285

== ENCOUNTER 2020-08-22 09:54 | Inpatient (IN) | payer BC ==
[2020-08-22] MEDS ORDERED: SODIUM CHLORIDE 0.9% 500 ML 500 ML IV STA (10:13)
[2020-08-22] MEDS ORDERED: SODIUM CHLORIDE 0.9% 1,000 ML IV STA ×2 (10:13)
[2020-08-22] MEDS ORDERED: ONDANSETRON 4 MG/2 ML VIAL IVP STA (10:13)
[2020-08-22 11:09] LABS: ALT 23 U/L (4-34); AST 21 U/L (14-36); African American GFR (CKD) >90 (>60 ml/min/1.73 sqM); Albumin 3.8 g/dL (3.5-5.0); Alkaline Phosphatase 66 U/L (38-126); Amylase 51 U/L (30-110); Anion Gap 14 mmol/L; Blood Urea Nitrogen 13 mg/dL (7-17); Calcium 7.7 mg/dL (8.4-10.2); Carbon Dioxide 13 mmol/L (22-30); Chloride 110 mmol/L (98-107); Glucose 386 mg/dL (74-99); Lipase 236 U/L (23-300); Magnesium 2.1 mg/dL (1.6-2.3); Non-African American GFR(CKD) >90 (>60 ml/min/1.73 sqM); Phosphorus 2.3 mg/dL (2.5-4.5); Potassium 4.3 mmol/L (3.5-5.1); Sodium 137 mmol/L (137-145); Total Bilirubin 0.7 mg/dL (0.2-1.3); Total Protein 6.2 g/dL (6.3-8.2)
--- NOTE | 2020-08-22 11:14 | XR ---
EXAMINATION TYPE: XR abdomen acute w cxr DATE OF EXAM: 08/22/2020 COMPARISON: 08/16/2020 HISTORY: Diarrhea TECHNIQUE: Supine, upright, and left side down lateral decubitus views of the abdomen are obtained. FINDINGS: Hyperinflation of lungs. Heart size normal with no overt failure. Subsegmental changes at t he left lung base. No pneumothorax. Bowel gas pattern nonspecific with no obstruction. Hypertrophic changes of the acetabulum. No suspici ous calcifications. IMPRESSION: 1. Nonspecific abdomen. No evidence of obstruction. 2. Left basilar atelectasis or early infiltrate correlate clinically.
[2020-08-22 11:25] LABS: Appearance,Urine Clear (Clear); Bilirubin,Urine Negative (Negative); Blood,Urine Negative (Negative); Color,Urine Light Yellow; Glucose,Urine (UA) 4+ (Negative); Leukocyte Esterase,Urine Negative (Negative); Nitrite,Urine Negative (Negative); PH, Urine 5.5 (5.0-8.0); Protein,Urine Negative (Negative); Specific Gravity,Urine 1.036 (1.001-1.035); Urobilinogen,Urine <2.0 mg/dL (<2.0)
[2020-08-22 11:34] LABS: Basophils % (A) 1 %; Eosinophils % (A) 1 %; HCT 42.6 % (34.0-46.0); HGB 14.7 gm/dL (11.4-16.0); Lymphocytes # (A) 0.4 k/uL (1.0-4.8); Lymphocytes % (A) 6 %; MCH 30.4 pg (25.0-35.0); MCHC 34.5 g/dL (31.0-37.0); MCV 88.1 fL (80.0-100.0); Mean Platelet Volume 8.1; Monocytes # (A) 0.2 k/uL (0-1.0); Monocytes % (A) 3 %; Neutrophils # (A) 6.7 k/uL (1.3-7.7); Neutrophils % (A) 89 %; Platelet Count 228 k/uL (150-450); RBC 4.84 m/uL (3.80-5.40); RDW 12.6 % (11.5-15.5); WBC 7.5 k/uL (3.8-10.6)
[2020-08-22 11:36] LABS: Ketones,Urine 4+ (Negative)
[2020-08-22] MEDS ORDERED: INSULIN REGULAR 100 UNIT/ML VIAL SQ ONE (11:36)
[2020-08-22] MEDS ORDERED: INSULIN REGULAR BOLUS (FROM DRIP BAG) IV ONE (12:01)
[2020-08-22] MEDS ORDERED: INSULIN REGULAR 100 UNIT in SODIUM CHLORIDE 0.9% 100 ML IV SCH (12:15)
[2020-08-22 12:25] LABS: Glucose,Whole Blood 273 mg/dL (75-99)
--- NOTE | 2020-08-22 12:38 | ED ---
Nausea/Vomiting/Diarrhea HPI - General Chief complaint: Nausea/Vomiting/Diarrhea Stated complaint: revisit- covid sypmtoms Time Seen by Provider: 08/22/20 10:06 Source: patient Mode of arrival: wheelchair Limitations: no limitations - History of Present Illness Initial comments: 50-year-old type I diabetic presents emergency room today for chief complaint of nausea vomiting diarrhea. Patient states she's had vomiting for the past week she states she was here for abdominal pain earlier and was hospitalized until Sunday. Patient states she was then discharged. Patient said the symptoms have persisted and worsened except abdominal pain has improved. Patient states she feels dehydrated. Patient states her sugars have been running high. Armani t denies additional complaints upon arrival she appears dry however nontoxic distress - Related Data Home Medications Medication Instructions Recorded Confirmed INSULIN ASPART (NovoLOG) [NovoLOG See Protocol SQ AC-TID 03/02/14 08/18/20 (formulary)] Insulin Degludec [Tresiba 18 unit SQ QAM 06/18/17 08/18/20 Flextouch U-100] Levothyroxine Sodium [Synthroid] 150 mcg PO DAILY 06/21/17 08/18/20 lisinopriL [Zestril] 5 mg PO DAILY 08/16/20 08/18/20 Previous Rx's Medication Instructions Recorded Acetaminophen-Codeine 300-30mg 1 tab PO Q6H PRN 3 Days #12 tablet 08/16/20 [Tylenol w/codeine #3] Ondansetron HCl [Zofran] 4 mg PO Q8H PRN #30 tab 08/21/20 Allergies Allergy/AdvReac Type Severity Reaction Status Date / Time No Known Allergies Allergy Verified 08/22/20 10:04 Review of Systems ROS Statement: Those systems with pertinent positive or pertinent negative responses have been documented in the HPI. ROS Other: All systems not noted in ROS Statement are negative. Past Medical History Past Medical History: Diabetes Mellitus, Thyroid Disorder Additional Past Medical History / Comment(s): Atopic DERMATITIS. HX THYROIDECTOMY D/T NODULES. uterine fibriods, heavy irregular menstrual periods History of Any Multi-Drug Resistant Organisms: None Reported Past Surgical History: Section, Tubal Ligation Additional Past Surgical History / Comment(s): THYROIDECTOMY. Past Anesthesia/Blood Transfusion Reactions: No Reported Reaction Past Psychological History: No Psychological Hx Reported Smoking Status: Current every day smoker Past Alcohol Use History: Occasional Past Drug Use History: None Reported - Past Family History Mother Family Medical History: Cancer Additional Family Medical History / Comment(s): brain. DM runs in the family General Exam - General Exam Comments Initial Comments: General: The patient is awake and alert, in no distress Eye: +3 mm pupils are equal, round and reactive to light, extra-ocular movements are intact. No nystagmus. There is normal conjunctiva bilaterally. No signs of icterus. Ears, nose, mouth and throat: There are moist mucous membranes and no oral lesions. Neck: The neck is supple, there is no tenderness or JVD. Cardiovascular: There is a regular rate and rhythm. No murmur, rub or gallop is appreciated. Respiratory: Lungs are clear to auscultation, respirations are non-labored, breath sounds are equal. No wheezes, stridor, rales, or rhonchi. Gastrointestinal: Soft, non-distended, non-tender abdomen without masses or organomegaly noted. There is no rebound or guarding present. Musculoskeletal: Normal ROM, no tenderness. Strength 5/5. Sensation intact. Radial pulses equal bilaterally 2+. Neurological: A&O x 3. CN II-XII intact grossly, There are no obvious motor or sensory deficits. Coordination appears grossly intact. Speech is normal. Skin: Skin is warm and dry and no rashes or lesions are noted. Psychiatric: Cooperative, appropriate mood & affect, normal judgment. Limitations: no limitations Course Vital Signs 08/22/20 10:02 Temperature 97 F L Pulse Rate 73 Respiratory 16 Rate Blood Pressure 115/77 O2 Sat by Pulse 96 Oximetry Procedures - [place] Protocol (Time Out) Nurse: Tanya Pedroza Medical Decision Making - Medical Decision Making Glucose elevated, acetone +. Ketones urine. Anion gap elevated. hx vomiting. concern DKA> insulin drop initiated as well as IV fluids.DKA protocols in place. Dr. Santos is agreeable to admission and care plan. - Lab Data Result diagrams: 08/22/20 10:53 08/22/20 10:53 Lab Results 08/22/20 08/22/20 08/22/20 Range/Units 10:53 10:53 10:53 WBC 7.5 (3.8-10.6) k/uL RBC 4.84 (3.80-5.40) m/uL Hgb 14.7 (11.4-16.0) gm/dL Hct 42.6 (34.0-46.0) % MCV 88.1 (80.0-100.0) fL MCH 30.4 (25.0-35.0) pg MCHC 34.5 (31.0-37.0) g/dL RDW 12.6 (11.5-15.5) % Plt Count 228 (150-450) k/uL MPV 8.1 Neutrophils % 89 % Lymphocytes % 6 % Monocytes % 3 % Eosinophils % 1 % Basophils % 1 % Neutrophils # 6.7 (1.3-7.7) k/uL Lymphocytes # 0.4 L (1.0-4.8) k/uL Monocytes # 0.2 (0-1.0) k/uL Eosinophils # 0.0 (0-0.7) k/uL Basophils # 0.0 (0-0.2) k/uL Sodium 137 (137-145) mmol/L Potassium 4.3 (3.5-5.1) mmol/L Chloride 110 H (98-107) mmol/L Carbon Dioxide 13 L (22-30) mmol/L Anion Gap 14 mmol/L BUN 13 (7-17) mg/dL Creatinine 0.52 (0.52-1.04) mg/dL Est GFR (CKD-EPI)AfAm >90 (>60 ml/min/1.73 sqM) Est GFR (CKD-EPI)NonAf >90 (>60 ml/min/1.73 sqM) Glucose 386 H (74-99) mg/dL POC Glucose (mg/dL) (75-99) mg/dL POC Glu Space Engineer ID Calcium 7.7 L (8.4-10.2) mg/dL Phosphorus 2.3 L (2.5-4.5) mg/dL Magnesium 2.1 (1.6-2.3) mg/dL Total Bilirubin 0.7 (0.2-1.3) mg/dL AST 21 (14-36) U/L ALT 23 (4-34) U/L Alkaline Phosphatase 66 (38-126) U/L Total Protein 6.2 L (6.3-8.2) g/dL Albumin 3.8 (3.5-5.0) g/dL Amylase 51 (30-110) U/L Lipase 236 (23-300) U/L Urine Color Light Yellow Urine Appearance Clear (Clear) Urine pH 5.5 (5.0-8.0) Ur Specific [place] 1.036 H (1.001-1.035) Urine Protein Negative (Negative) Urine Glucose (UA) 4+ H (Negative) Urine Ketones 4+ H (Negative) Urine Blood Negative (Negative) Urine Nitrite Negative (Negative) Urine Bilirubin Negative (Negative) Urine Urobilinogen <2.0 (<2.0) mg/dL Ur Leukocyte Esterase Negative (Negative) Acetone, Qual Positive (Negative) 08/22/20 Range/Units 12:24 WBC (3.8-10.6) k/uL RBC (3.80-5.40) m/uL Hgb (11.4-16.0) gm/dL Hct (34.0-46.0) % MCV (80.0-100.0) fL MCH (25.0-35.0) pg MCHC (31.0-37.0) g/dL RDW (11.5-15.5) % Plt Count (150-450) k/uL MPV Neutrophils % % Lymphocytes % % Monocytes % % Eosinophils % % Basophils % % Neutrophils # (1.3-7.7) k/uL Lymphocytes # (1.0-4.8) k/uL Monocytes # (0-1.0) k/uL Eosinophils # (0-0.7) k/uL Basophils # (0-0.2) k/uL Sodium (137-145) mmol/L Potassium (3.5-5.1) mmol/L Chloride (98-107) mmol/L Carbon Dioxide (22-30) mmol/L Anion Gap mmol/L BUN (7-17) mg/dL Creatinine (0.52-1.04) mg/dL Est GFR (CKD-EPI)AfAm (>60 ml/min/1.73 sqM) Est GFR (CKD-EPI)NonAf (>60 ml/min/1.73 sqM) Glucose (74-99) mg/dL POC Glucose (mg/dL) 273 H (75-99) mg/dL POC Glu Space Engineer ID Jazmín Abdullahi Calcium (8.4-10.2) mg/dL Phosphorus (2.5-4.5) mg/dL Magnesium (1.6-2.3) mg/dL Total Bilirubin (0.2-1.3) mg/dL AST (14-36) U/L ALT (4-34) U/L Alkaline Phosphatase (38-126) U/L Total Protein (6.3-8.2) g/dL Albumin (3.5-5.0) g/dL Amylase (30-110) U/L Lipase (23-300) U/L Urine Color Urine Appearance (Clear) Urine pH (5.0-8.0) Ur Specific [place] (1.001-1.035) Urine Protein (Negative) Urine Glucose (UA) (Negative) Urine Ketones (Negative) Urine Blood (Negative) Urine Nitrite (Negative) Urine Bilirubin (Negative) Urine Urobilinogen (<2.0) mg/dL Ur Leukocyte Esterase (Negative) Acetone, Qual (Negative) Disposition Clinical Impression: DKA (diabetic ketoacidoses), Vomiting Disposition: ADMITTED IP TO THIS [facility] Condition: Stable Is patient prescribed a controlled substance at d/c from ED?: No Referrals: Helen Villatoro MD [Primary Care Provider] - 1-2 days Time of Disposition: 12:38 Decision to Admit Reason: Admit from EC Decision Date: 08/22/20 Decision Time: 12:38
[2020-08-22] MEDS ORDERED: D5-0.45% NACL WITH KCL 20MEQ/L 1,000 ML IV SCH (13:00)
[2020-08-22] MEDS: SODIUM CHLORIDE 0.9% 1,000 ML IV SCH ×3 (13:06→19:28)
[2020-08-22 14:10] LABS: Glucose,Whole Blood 266 mg/dL (75-99)
[2020-08-22 14:56] LABS: Glucose,Whole Blood 243 mg/dL (75-99)
[2020-08-22 16:06] LABS: Glucose,Whole Blood 208 mg/dL (75-99)
[2020-08-22 17:07] LABS: Glucose,Whole Blood 234 mg/dL (75-99)
[2020-08-22 17:14] LABS: African American GFR (CKD) >90 (>60 ml/min/1.73 sqM); Anion Gap 6 mmol/L; Blood Urea Nitrogen 11 mg/dL (7-17); Carbon Dioxide 18 mmol/L (22-30); Chloride 115 mmol/L (98-107); Glucose 247 mg/dL (74-99); Non-African American GFR(CKD) >90 (>60 ml/min/1.73 sqM); Potassium 3.4 mmol/L (3.5-5.1); Sodium 139 mmol/L (137-145)
[2020-08-22] MEDS ORDERED: Phosphorus Replacement Protoco 1 EACH MISC MISCELLANE PRN (17:36)
[2020-08-22] MEDS ORDERED: Potassium Replacement Protocol 1 EACH MISC MISCELLANE PRN (17:36)
[2020-08-22] MEDS ORDERED: Magnesium Replacement Protocol 1 EACH MISC MISCELLANE PRN (17:36)
--- NOTE | 2020-08-22 17:49 | P.HPIM ---
History of Present Illness H&P Date: 08/22/20 Chief Complaint: Nausea and vomiting This is a 50-year-old female with past medical history noted below who presented to the emergency room with persistent nausea, vomiting, and diarrhea. Patient was recently discharged from the hospital. Her symptoms originally started ab out 10 days ago and at that time she presented to the emergency room and a computed tomography scan of the abdomen and pelvis showed no evidence of small bowel obstruction. She was noted to have a large kidney cyst and was admitted to the hospital and underwent IR guided cyst drainage. At the time her symptoms improved and patient was discharged home. Patient said that since she went home she continued to have nausea and vomiting but denies abdominal pain. She is also reporting diarrhea. She denies any fevers or chills. No blood in stool. Patient was evaluated in the ER and her abdominal x-ray showed no evidence of small bowel obstruction. She was found to be in mild DKA. She was started on DKA protocol and admitted to the hospital for further management. Review of Systems Review of system: 14 points review of systems were obtained and were negative except to what were mentioned in the HPI. Past Medical History Past Medical History: Diabetes Mellitus, Thyroid Disorder Additional Past Medical History / Comment(s): Atopic DERMATITIS. HX THYROIDECTOMY D/T NODULES. uterine fibriods, heavy irregular menstrual periods History of Any Multi-Drug Resistant Organisms: None Reported Past Surgical History: Section, Tubal Ligation Additional Past Surgical History / Comment(s): THYROIDECTOMY. Past Anesthesia/Blood Transfusion Reactions: No Reported Reaction Past Psychological History: No Psychological Hx Reported Smoking Status: Current every day smoker Past Alcohol Use History: Occasional Additional Past Alcohol Use History / Comment(s): SMOKED AGE [age] YEARS OLD, BEGAN AGAIN 2011, 1/2 PPD. Past Drug Use History: None Reported - Past Family History Mother Family Medical History: Cancer Additional Family Medical History / Comment(s): brain. DM runs in the family Medications and Allergies Home Medications Medication Instructions Recorded Confirmed Type INSULIN ASPART (NovoLOG) [NovoLOG See Protocol SQ AC-TID 03/02/14 08/22/20 History (formulary)] Insulin Degludec [Tresiba 18 unit SQ QAM 06/18/17 08/22/20 History Flextouch U-100] Levothyroxine Sodium [Synthroid] 150 mcg PO DAILY 06/21/17 08/22/20 History Acetaminophen-Codeine 300-30mg 1 tab PO Q6H PRN 3 Days #12 tablet 08/16/20 08/22/20 Rx [Tylenol w/codeine #3] lisinopriL [Zestril] 5 mg PO DAILY 08/16/20 08/22/20 History Ondansetron HCl [Zofran] 4 mg PO Q8H PRN #30 tab 08/21/20 08/22/20 Rx Allergies Allergy/AdvReac Type Severity Reaction Status Date / Time No Known Allergies Allergy Verified 08/22/20 12:44 Physical Exam Vitals: Vital Signs Temp Pulse Pulse Resp BP BP Pulse Ox 08/22/20 14:43 97.7 F 71 16 126/69 96 08/22/20 14:33 98.2 F 78 16 119/70 98 08/22/20 10:02 97 F L 73 16 115/77 96 Intake and Output 08/22/20 08/22/20 08/22/20 06:59 14:59 22:59 Intake Total 9.3 13.576 Balance 9.3 13.576 Intake: Intake, IV Titration 9.3 13.576 Amount Insulin Regular 100 unit 9.3 13.576 In Sodium Chloride 0.9% 100 ml @ 0.1 UNITS/KG/HR 6.414 mls/hr IV .[id number] [facility] Rx#:[id number] Other: Weight 63.503 kg General: The patient is awake and alert, in no distress Eye: there is normal conjunctiva bilaterally. Neck: The neck is supple, there is no JVD. Cardiovascular: Normal S1-S2, no S3-S4, no murmurs. Respiratory: Lungs clear to auscultation bilaterally Gastrointestinal: Abdomen is soft, nontender Musculoskeletal: There is no pedal edema. Neurological:. Speech is normal. Skin: Skin is warm and dry Results CBC & Chem 7: 08/22/20 10:53 08/22/20 16:41 Labs: Abnormal Lab Results - Last 24 Hours (Table) 08/22/20 08/22/20 08/22/20 Range/Units 10:53 10:53 10:53 Lymphocytes # 0.4 L (1.0-4.8) k/uL Potassium (3.5-5.1) mmol/L Chloride 110 H (98-107) mmol/L Carbon Dioxide 13 L (22-30) mmol/L Creatinine (0.52-1.04) mg/dL Glucose 386 H (74-99) mg/dL POC Glucose (mg/dL) (75-99) mg/dL Calcium 7.7 L (8.4-10.2) mg/dL Phosphorus 2.3 L (2.5-4.5) mg/dL Total Protein 6.2 L (6.3-8.2) g/dL Ur Specific [place] 1.036 H (1.001-1.035) Urine Glucose (UA) 4+ H (Negative) Urine Ketones 4+ H (Negative) 08/22/20 08/22/20 08/22/20 Range/Units 12:24 14:09 14:55 Lymphocytes # (1.0-4.8) k/uL Potassium (3.5-5.1) mmol/L Chloride (98-107) mmol/L Carbon Dioxide (22-30) mmol/L Creatinine (0.52-1.04) mg/dL Glucose (74-99) mg/dL POC Glucose (mg/dL) 273 H 266 H 243 H (75-99) mg/dL Calcium (8.4-10.2) mg/dL Phosphorus (2.5-4.5) mg/dL Total Protein (6.3-8.2) g/dL Ur Specific [place] (1.001-1.035) Urine Glucose (UA) (Negative) Urine Ketones (Negative) 08/22/20 08/22/20 08/22/20 Range/Units 16:05 16:41 16:41 Lymphocytes # (1.0-4.8) k/uL Potassium 3.4 L (3.5-5.1) mmol/L Chloride 115 H (98-107) mmol/L Carbon Dioxide 18 L (22-30) mmol/L Creatinine 0.46 L (0.52-1.04) mg/dL Glucose 247 H (74-99) mg/dL POC Glucose (mg/dL) 208 H (75-99) mg/dL Calcium (8.4-10.2) mg/dL Phosphorus 0.7 L* (2.5-4.5) mg/dL Total Protein (6.3-8.2) g/dL Ur Specific [place] (1.001-1.035) Urine Glucose (UA) (Negative) Urine Ketones (Negative) 08/22/20 Range/Units 17:02 Lymphocytes # (1.0-4.8) k/uL Potassium (3.5-5.1) mmol/L Chloride (98-107) mmol/L Carbon Dioxide (22-30) mmol/L Creatinine (0.52-1.04) mg/dL Glucose (74-99) mg/dL POC Glucose (mg/dL) 234 H (75-99) mg/dL Calcium (8.4-10.2) mg/dL Phosphorus (2.5-4.5) mg/dL Total Protein (6.3-8.2) g/dL Ur Specific [place] (1.001-1.035) Urine Glucose (UA) (Negative) Urine Ketones (Negative) Thrombosis Risk Factor Assmnt - Choose All That Apply Any of the Below Risk Factors Present?: Yes Each Factor Represents 1 point: Age 41-60 years, Obesity (BMI >25) Other Risk Factors: No Other congenital or acquired thrombophilia - If yes, enter type in comment: No Thrombosis Risk Factor Assessment Total Risk Factor Score: 2 Thrombosis Risk Factor Assessment Level: Low Risk Assessment and Plan Assessment: This is a 50-year-old female with past medical history noted below who presented to the emergency room with nausea, vomiting, and diarrhea. Patient was evaluated in the ER and admitted to the hospital for further management of her medical problems noted below. 1. Mild DKA: Improved with aggressive IV fluid hydration and insulin drip. Repeat lab work showed significant improvement. Discontinue DKA protocol. Start subcutaneous insulin 2. Persistent nausea and vomiting, patient had a computed tomography scan of the abdomen and pelvis on 08/16 showing evidence of hiatal hernia. No evidence of bowel obstruction. Abdominal x-ray in the ER with nonobstructive gas pattern. Initially was thought that he she may have acute viral gastroenteritis but given persistence of her symptoms I would consult GI for consideration of an EGD. Also gastroparesis in the differential diagnosis 3. Type 2 diabetes, relatively well controlled. A1c 7.5. Continue Levemir 10 units twice daily plus sliding scale insulin. 4. Large right kidney cyst status post IR drainage few days ago with approximately 650 mL drained. Plan to follow-up with urology outpatient. 5. Multiple hyperechoic liver lesions suspected for hemangioma, may require MRI as an outpatient for further evaluation 6. Chronic medical problems, essential hypertension, hypothyroidism: Resume home medication 7. DVT prophylaxis with subcu heparin Today, I reviewed her medication list and lab work results. Continue IV fluid hydration with normal saline at 130 mL per hour. Discontinue DKA protocol. Phosphorus and potassium replacement. Start carbohydrate consistent diet. Reglan 5 mg 3 times a day before each meal. Consult GI for further recommendations. Repeat lab work in the morning.
[2020-08-22] MEDS: POTASSIUM PHOSPHATE 10 MMOL in SODIUM CHLORIDE 0.9% 250 ML IV SCH ×3 (18:13→23:17)
[2020-08-22] MEDS: POTASSIUM CHLORIDE ER 20 MEQ TAB.ER PO SCH (18:13)
[2020-08-22 18:21] LABS: Glucose,Whole Blood 258 mg/dL (75-99)
[2020-08-22] MEDS: INSULIN ASPART (NovoLOG) 100 UNIT/ML VIAL SQ SCH ×2 (18:26→23:19)
[2020-08-22] MEDS: INSULIN DETEMIR (LEVEMIR) 100 UNIT/ML SYR SQ SCH (18:26)
[2020-08-22 19:09] LABS: Glucose,Whole Blood 201 mg/dL (75-99)
[2020-08-22 19:52] LABS: African American GFR (CKD) >90 (>60 ml/min/1.73 sqM); Anion Gap 3 mmol/L; Blood Urea Nitrogen 11 mg/dL (7-17); Carbon Dioxide 19 mmol/L (22-30); Chloride 115 mmol/L (98-107); Glucose 178 mg/dL (74-99); Non-African American GFR(CKD) >90 (>60 ml/min/1.73 sqM); Potassium 3.7 mmol/L (3.5-5.1); Sodium 137 mmol/L (137-145)
[2020-08-22] MEDS: HEPARIN SODIUM,PORCINE 5,000 UNIT/ML 1 ML VIAL SQ SCH (20:47)
[2020-08-22] MEDS ORDERED: INSULIN ASPART (NovoLOG) 100 UNIT/ML VIAL SQ SCH (21:00)
[2020-08-22 21:14] LABS: Glucose,Whole Blood 139 mg/dL (75-99)
[2020-08-23 02:23] LABS: Glucose,Whole Blood 66 mg/dL (75-99)
[2020-08-23 02:32] LABS: Glucose,Whole Blood 110 mg/dL (75-99)
[2020-08-23] MEDS: SODIUM CHLORIDE 0.9% 1,000 ML IV SCH ×2 (06:08→12:02)
[2020-08-23] MEDS: INSULIN ASPART (NovoLOG) 100 UNIT/ML VIAL SQ SCH ×4 (06:20→22:56)
[2020-08-23] MEDS: METOCLOPRAMIDE 5 MG TAB PO SCH ×2 (06:21→12:02)
[2020-08-23] MEDS: LEVOTHYROXINE 75 MCG TAB PO SCH (06:21)
[2020-08-23 06:29] LABS: Glucose,Whole Blood 77 mg/dL (75-99)
[2020-08-23] MEDS: INSULIN DETEMIR (LEVEMIR) 100 UNIT/ML SYR SQ SCH ×2 (06:32→22:32)
[2020-08-23] MEDS: HEPARIN SODIUM,PORCINE 5,000 UNIT/ML 1 ML VIAL SQ SCH ×2 (09:07→20:51)
[2020-08-23] MEDS: lisinopriL 5 MG TAB PO SCH (09:07)
[2020-08-23 10:18] LABS: African American GFR (CKD) >90 (>60 ml/min/1.73 sqM); Anion Gap 4 mmol/L; Blood Urea Nitrogen 7 mg/dL (7-17); Calcium 6.8 mg/dL (8.4-10.2); Carbon Dioxide 24 mmol/L (22-30); Chloride 111 mmol/L (98-107); Glucose 120 mg/dL (74-99); Magnesium 1.7 mg/dL (1.6-2.3); Non-African American GFR(CKD) >90 (>60 ml/min/1.73 sqM); Phosphorus 1.8 mg/dL (2.5-4.5); Potassium 3.5 mmol/L (3.5-5.1); Sodium 139 mmol/L (137-145)
[2020-08-23 11:45] LABS: Glucose,Whole Blood 69 mg/dL (75-99)
[2020-08-23 12:05] LABS: Glucose,Whole Blood 120 mg/dL (75-99)
--- NOTE | 2020-08-23 13:27 | P.PN ---
Subjective Progress Note Date: 08/23/20 Patient is still complaining of nausea but no vomiting this morning. She is also complaining of diarrhea. Nursing staff did not collect stool sample as patient is been having mixed urine and stool. No fevers documented. Objective - Vital Signs Vital signs: Vital Signs Temp 97.3 F L 08/23/20 12:00 Pulse 80 08/23/20 12:00 Resp 16 08/23/20 12:00 BP 135/63 08/23/20 12:00 Pulse Ox 96 08/23/20 12:00 Intake & Output 08/22/20 08/23/20 08/23/20 18:59 06:59 18:59 Intake Total 31.107 1162.376 240 Output Total 300 Balance 31.107 862.376 240 Weight 63.503 kg 64.6 kg Intake: Intake, IV Titration 31.107 1162.376 Amount Insulin Regular 100 unit 31.107 7.376 In Sodium Chloride 0.9% 100 ml @ 0.1 UNITS/KG/HR 6.414 mls/hr IV .[id number] [facility] Rx#:[id number] Potassium Phosphate 10 375 mmol In Sodium Chloride 0 .9% 250 ml @ 125 mls/hr IV Q2H [facility] Rx#:[id number] Sodium Chloride 0.9% 1, 780 000 ml @ 130 mls/hr IV . [id number] [facility] Rx#:[id number] Oral 240 Output: Urine/Stool Mix 300 Other: Voiding Method Toilet Toilet Incontinent Incontinent # Voids 2 1 # Bowel Movements 1 1 - Exam General: The patient is awake and alert, in no distress Eye: there is normal conjunctiva bilaterally. Neck: The neck is supple, there is no JVD. Cardiovascular: Normal S1-S2, no S3-S4, no murmurs. Respiratory: Lungs clear to auscultation bilaterally Gastrointestinal: Abdomen is soft, nontender Musculoskeletal: There is no pedal edema. Neurological:. Speech is normal. Skin: Skin is warm and dry - Labs CBC & Chem 7: 08/22/20 10:53 08/23/20 09:11 Labs: Abnormal Lab Results - Last 24 Hours (Table) 08/22/20 08/22/20 08/22/20 Range/Units 14:09 14:55 16:05 Potassium (3.5-5.1) mmol/L Chloride (98-107) mmol/L Carbon Dioxide (22-30) mmol/L Creatinine (0.52-1.04) mg/dL Glucose (74-99) mg/dL POC Glucose (mg/dL) 266 H 243 H 208 H (75-99) mg/dL Calcium (8.4-10.2) mg/dL Phosphorus (2.5-4.5) mg/dL 08/22/20 08/22/20 08/22/20 Range/Units 16:41 16:41 17:02 Potassium 3.4 L (3.5-5.1) mmol/L Chloride 115 H (98-107) mmol/L Carbon Dioxide 18 L (22-30) mmol/L Creatinine 0.46 L (0.52-1.04) mg/dL Glucose 247 H (74-99) mg/dL POC Glucose (mg/dL) 234 H (75-99) mg/dL Calcium (8.4-10.2) mg/dL Phosphorus 0.7 L* (2.5-4.5) mg/dL 08/22/20 08/22/20 08/22/20 Range/Units 18:19 19:04 19:21 Potassium (3.5-5.1) mmol/L Chloride (98-107) mmol/L Carbon Dioxide (22-30) mmol/L Creatinine (0.52-1.04) mg/dL Glucose (74-99) mg/dL POC Glucose (mg/dL) 258 H 201 H (75-99) mg/dL Calcium (8.4-10.2) mg/dL Phosphorus 1.1 L (2.5-4.5) mg/dL 08/22/20 08/22/20 08/23/20 Range/Units 19:21 20:09 02:08 Potassium (3.5-5.1) mmol/L Chloride 115 H (98-107) mmol/L Carbon Dioxide 19 L (22-30) mmol/L Creatinine 0.43 L (0.52-1.04) mg/dL Glucose 178 H (74-99) mg/dL POC Glucose (mg/dL) 139 H 66 L (75-99) mg/dL Calcium (8.4-10.2) mg/dL Phosphorus (2.5-4.5) mg/dL 08/23/20 08/23/20 08/23/20 Range/Units 02:28 09:11 11:44 Potassium (3.5-5.1) mmol/L Chloride 111 H (98-107) mmol/L Carbon Dioxide (22-30) mmol/L Creatinine 0.47 L (0.52-1.04) mg/dL Glucose 120 H (74-99) mg/dL POC Glucose (mg/dL) 110 H 69 L (75-99) mg/dL Calcium 6.8 L (8.4-10.2) mg/dL Phosphorus 1.8 L (2.5-4.5) mg/dL 08/23/20 Range/Units 12:03 Potassium (3.5-5.1) mmol/L Chloride (98-107) mmol/L Carbon Dioxide (22-30) mmol/L Creatinine (0.52-1.04) mg/dL Glucose (74-99) mg/dL POC Glucose (mg/dL) 120 H (75-99) mg/dL Calcium (8.4-10.2) mg/dL Phosphorus (2.5-4.5) mg/dL Assessment and Plan Assessment: This is a 50-year-old female with past medical history noted below who presented to the emergency room with nausea, vomiting, and diarrhea. Patient was evaluated in the ER and admitted to the hospital for further management of her medical problems noted below. 1. Mild DKA: Improved with aggressive IV fluid hydration and insulin drip. Repeat lab work showed significant improvement. Discontinue DKA protocol. Start subcutaneous insulin 2. Persistent nausea and vomiting, patient had a computed tomography scan of the abdomen and pelvis on 08/16 showing evidence of hiatal hernia. No evidence of bowel obstruction. Abdominal x-ray in the ER with nonobstructive gas pattern. Initially was thought that he she may have acute viral gastroenteritis but given persistence of her symptoms I would consult GI for consideration of an EGD. Also gastroparesis in the differential diagnosis 3. Type 2 diabetes, relatively well controlled. A1c 7.5. Continue Levemir 10 units twice daily plus sliding scale insulin. 4. Large right kidney cyst status post IR drainage few days ago with a pproximately 650 mL drained. Plan to follow-up with urology outpatient. 5. Multiple hyperechoic liver lesions suspected for hemangioma, may require MRI as an outpatient for further evaluation 6. Chronic medical problems, essential hypertension, hypothyroidism: Resume home medication 7. DVT prophylaxis with subcu heparin Today, I reviewed her medication list and lab work results. Awaiting GI evaluation Encouraged oral hydration Repeat lab work in the morning Change Reglan to when necessary
[2020-08-23] MEDS ORDERED: METOCLOPRAMIDE 5 MG TAB PO PRN (13:28)
[2020-08-23] MEDS ORDERED: DICYCLOMINE 20 MG TAB PO PRN (13:44)
[2020-08-23 13:56] VITALS: BMI 27.8
[2020-08-23 16:37] LABS: Glucose,Whole Blood 96 mg/dL (75-99)
[2020-08-23] MEDS ORDERED: Phosphorus Replacement Protoco 1 EACH MISC MISCELLANE PRN (17:58)
[2020-08-23 20:13] LABS: Glucose,Whole Blood 115 mg/dL (75-99)
[2020-08-23] MEDS: POTASSIUM PHOSPHATE 10 MMOL in SODIUM CHLORIDE 0.9% 250 ML IV SCH ×2 (20:51→23:43)
[2020-08-24 02:18] LABS: Glucose,Whole Blood 65 mg/dL (75-99)
[2020-08-24 02:32] LABS: Glucose,Whole Blood 78 mg/dL (75-99)
[2020-08-24] MEDS: ONDANSETRON 4 MG/2 ML VIAL IVP PRN ×2 (02:42→08:45)
[2020-08-24 03:29] LABS: Urine Alcohol Negative (Negative); Urine Barbiturate Negative (Negative); Urine Cocaine Negative (Negative); Urine Methadone Negative (Negative); Urine Opiates Negative (Negative); Urine Phencyclidine Negative (Negative)
[2020-08-24 05:48] LABS: Glucose,Whole Blood 60 mg/dL (75-99)
[2020-08-24 06:10] LABS: Glucose,Whole Blood 83 mg/dL (75-99)
[2020-08-24] MEDS: LEVOTHYROXINE 75 MCG TAB PO SCH (06:36)
[2020-08-24] MEDS: INSULIN DETEMIR (LEVEMIR) 100 UNIT/ML SYR SQ SCH ×2 (07:31→20:59)
[2020-08-24] MEDS: INSULIN ASPART (NovoLOG) 100 UNIT/ML VIAL SQ SCH ×4 (07:34→20:59)
--- NOTE | 2020-08-24 09:45 | CT ---
EXAMINATION TYPE: CT brain ariel thompson DATE OF EXAM: 08/24/2020 COMPARISON: None HISTORY: unsteady gait CT DLP: 1248.[address] of the brain was performed. The ventricles, basal cisterns and sulci overlying the cerebral convexities demonstrate mild enlargem ent. There is no evidence for intracranial hemorrhage or sulcal effacement. There is decreased attenuatio n about the periventricular white matter and deep white matter of both cerebral hemispheres, compatib le with chronic small vessel ischemia. No mass effects are seen. If symptoms persist consider MRI. Osseous calvarium is intact. IMPRESSION: 1. Age related atrophic and chronic small vessel ischemic change without acute intracranial process seen at this time. CT Cervical Spine: Unenhanced CT of the cervical spine was performed with bone and soft tissue window settings submitted . Coronal and sagittal reconstruction is obtained. There is normal alignment and prevertebral soft tissues. No evidence for acute cervical fracture . Scattered degenerative disc disease and spondylosis. Biapical scarring. IMPRESSION: 1. No evidence for acute fracture or subluxation of the cervical spine.
--- NOTE | 2020-08-24 09:48 | CT ---
EXAMINATION TYPE: CT angio head neck DATE OF EXAM: 08/24/2020 COMPARISON: None HISTORY: unsteady gait CT DLP: 337.9 mGycm CONTRAST: Performed with IV Contrast, patient injected with 65 mL of Isovue 300. Combination Contrast CTA cervical carotids and [place] CTA cervical carotids with 3-D recons truction Contrast CTA of the cervical carotids was performed 3-D reconstruction imaging obtained at a separate workstation. Right carotid system: Mild plaque is seen of the right common carotid artery. There is mild plaque a lso noted at the carotid bulb and proximal ICA. No significant diameter reduction. ECA is patent. Right vertebral artery appears unremarkable. Left carotid system: Mild plaque is seen of the left common carotid artery. There is mild plaque als o noted at the carotid bulb and proximal ICA. No significant diameter reduction. ECA is patent. Lef t vertebral artery appears unremarkable. IMPRESSION: 1. No significant diameter reduction to account for the patient's symptoms. CTA [place] with 3-D reconstruction Contrast CTA of the [place] was performed 3-D reconstruction imaging obtained at a separate workstation. Vertebrobasilar system as well as intracranial portions of the internal carotid arteries and their ma pamela tributaries are patent. I do not see evidence for sizable aneurysm or vascular malformation. Pl ease note MRI provides greater sensitivity and specificity. Visualized brain appears grossly unremar kable. IMPRESSION: 1. No significant abnormality.
[2020-08-24] MEDS ORDERED: ASPIRIN 300 MG SUPP RECTAL SCH (10:15)
--- NOTE | 2020-08-24 10:15 | P.CNNES ---
History of Present Illness Consult date: 08/24/20 Requesting physician: Marjorie Edwards Reason for Consult: ataxia and bilateral weakness History of Present Illness: This is a 50-year-old woman with medical history of diabetes mellitus, hypothyroidism, thyroid nodules status post thyroidectomy presented to the emergency department on 08/22/2020 for complaint of nausea vomiting and diarrhea for the past 1 week. She is also having abdominal pain. Neurology is consulted for ataxia and bilateral weakness. Cortical to the patient that she's been having unsteady gait for the last 8 days. She said that she's been feeling off and this is not her normal state. She said that she is also noticing that she is slurring her speech and she's having difficulty getting her words out for the same duration 8 days. He denies of any diplopia, any ringing in the ears, and hearing loss. She denies of any focal weakness. Denies of any difficulty swallowing. She stated that she feels her whole body is numb. She denies of any history of stroke or TIA in the past. She denies of any fever recently. She is not on any aspirin at home or any antiplatelets. She's not sure if she is on statin. Workup in the hospital consisted of: Initial serum glucose is 386, sodium is 137, phosphorus was 2.3, calcium is 7.7. Patient phosphorus a got as low as 0.7 on 08/22/2020 around 1641. In the hospital stay the patient's glucose got as low as 69 and then another one as low as 65 on 08/24/2020 around 2:15 AM. Then at got low to 60 on 08/24/2020 at 5:46 AM. Urine drug screen is negative. Serum alcohol was less than 10. Acetone is positive. Because of her symptoms I ordered the CT of the head stat and was reported as age-related atrophic and chronic small vessel ischemic change without acute intracranial process seen at this time. I also ordered CT cervical spine stat and was reported as no evidence for acute fracture or subluxation of cervical spine. CT and angiography of the head and neck was reported as no significant diameter reduction to account for the patient's symptoms. No significant abnormality. Review of Systems Review of system: The 12 point system was reviewed and apparent positive and negative per HPI. Past Medical History Past Medical History: Diabetes Mellitus, Thyroid Disorder Additional Past Medical History / Comment(s): Atopic DERMATITIS. HX THYROIDECTOMY D/T NODULES. uterine fibriods, heavy irregular menstrual periods History of Any Multi-Drug Resistant Organisms: None Reported Past Surgical History: Section, Tubal Ligation Additional Past Surgical History / Comment(s): THYROIDECTOMY. Past Anesthesia/Blood Transfusion Reactions: No Reported Reaction Past Psychological History: No Psychological Hx Reported Smoking Status: Current every day smoker Past Alcohol Use History: Occasional Additional Past Alcohol Use History / Comment(s): SMOKED AGE [age] YEARS OLD, BEGAN AGAIN 2011, 1/2 PPD. Past Drug Use History: None Reported - Past Family History Mother Family Medical History: Cancer Additional Family Medical History / Comment(s): brain. DM runs in the family Medications and Allergies Home Medications Medication Instructions Recorded Confirmed Type INSULIN ASPART (NovoLOG) [NovoLOG See Protocol SQ AC-TID 03/02/14 08/22/20 History (formulary)] Insulin Degludec [Tresiba 18 unit SQ QAM 06/18/17 08/22/20 History Flextouch U-100] Levothyroxine Sodium [Synthroid] 150 mcg PO DAILY 06/21/17 08/22/20 History Acetaminophen-Codeine 300-30mg 1 tab PO Q6H PRN 3 Days #12 tablet 08/16/20 08/22/20 Rx [Tylenol w/codeine #3] lisinopriL [Zestril] 5 mg PO DAILY 08/16/20 08/22/20 History Ondansetron HCl [Zofran] 4 mg PO Q8H PRN #30 tab 08/21/20 08/22/20 Rx Allergies Allergy/AdvReac Type Severity Reaction Status Date / Time No Known Allergies Allergy Verified 08/22/20 12:44 Physical Examination - Vital Signs Vital Signs: Vital Signs Temp Pulse Resp BP Pulse Ox 08/24/20 03:27 98.6 F 60 16 134/79 96 08/24/20 00:00 97.9 F 65 17 161/77 95 08/23/20 20:00 98.5 F 63 18 164/84 97 08/23/20 16:00 98.7 F 70 16 171/81 97 08/23/20 15:53 80 16 08/23/20 12:00 97.3 F L 65 14 135/63 96 Intake and Output 08/23/20 08/24/2020 22:59 06:59 14:59 Intake Total 125 Output Total 100 400 Balance -100 -275 Intake: Intake, IV Titration 125 Amount Potassium Phosphate 10 125 mmol In Sodium Chloride 0 .9% 250 ml @ 125 mls/hr IV Q2H [facility] Rx#:[id number] Output: Urine 400 Emesis 100 Other: Voiding Method Toilet Toilet Incontinent Incontinent # Voids 1 1 # Bowel Movements 3 Weight 65 kg GENERAL: The patient is lying in bed and is in mild acute distress. CHEST: The heart rate is regular rate rhythm. No murmurs to auscultation. No carotid bruit bilaterally. LUNG: Clear to auscultation bilaterally no wheezing noted throughout. Not labored breathing. ABDOMEN/GI: Bowel sounds present in all 4 quadrants. No tenderness to palpation throughout. NEUROLOGICAL: Higher mental function: The patient is awake, alert, oriented to self, place and time. Patient is following commands. No aphasia and no neglect. Cranial nerves: The pupils are round, equal and reactive to light and accommodation. Visual sommer are full to confrontation throughout. Extraocular movement is intact no nystagmus is noted. Facial sensation is normal to touch throughout. The facial strength is normal throughout. Hearing is normal bilaterally to hand rub. Tongue is midline and moved [id number] without any difficulty. Mild dysarthria is noted. Shoulder shrug is normal bilaterally. Motor: Gait was attempted but patient was extremely unsteady. The strength is 5 over 5 throughout bilateral upper extremities and 5- bilateral lower extremitie s. Normal tone and bulk. Cerebellum: Ataxic finger to nose bilaterally. While heel to hammer, the left felt somewhat ataxic while right seemed normal. Sensation: Sensation is normal to touch throughout. Reflexes (right/left): 2+ throughout. Plantars are downgoing bilaterally. Results - Laboratory Findings CBC and BMP: 08/22/20 10:53 08/24/20 18:27 Abnormal Lab Findings: Abnormal Labs 08/22/20 08/22/20 08/22/20 10:53 10:53 10:53 Lymphocytes # 0.4 L Potassium Chloride 110 H Carbon Dioxide 13 L Creatinine Glucose 386 H POC Glucose (mg/dL) Calcium 7.7 L Phosphorus 2.3 L Total Protein 6.2 L Ur Specific [place] 1.036 H Urine Glucose (UA) 4+ H Urine Ketones 4+ H 08/22/20 08/22/20 08/22/20 12:24 14:09 14:55 Lymphocytes # Potassium Chloride Carbon Dioxide Creatinine Glucose POC Glucose (mg/dL) 273 H 266 H 243 H Calcium Phosphorus Total Protein Ur Specific [place] Urine Glucose (UA) Urine Ketones 08/22/20 08/22/20 08/22/20 16:05 16:41 16:41 Lymphocytes # Potassium 3.4 L Chloride 115 H Carbon Dioxide 18 L Creatinine 0.46 L Glucose 247 H POC Glucose (mg/dL) 208 H Calcium Phosphorus 0.7 L* Total Protein Ur Specific [place] Urine Glucose (UA) Urine Ketones 08/22/20 08/22/20 08/22/20 17:02 18:19 19:04 Lymphocytes # Potassium Chloride Carbon Dioxide Creatinine Glucose POC Glucose (mg/dL) 234 H 258 H 201 H Calcium Phosphorus Total Protein Ur Specific [place] Urine Glucose (UA) Urine Ketones 08/22/20 08/22/20 08/22/20 19:21 19:21 20:09 Lymphocytes # Potassium Chloride 115 H Carbon Dioxide 19 L Creatinine 0.43 L Glucose 178 H POC Glucose (mg/dL) 139 H Calcium Phosphorus 1.1 L Total Protein Ur Specific [place] Urine Glucose (UA) Urine Ketones 08/23/20 08/23/20 08/23/20 02:08 02:28 09:11 Lymphocytes # Potassium Chloride 111 H Carbon Dioxide Creatinine 0.47 L Glucose 120 H POC Glucose (mg/dL) 66 L 110 H Calcium 6.8 L Phosphorus 1.8 L Total Protein Ur Specific [place] Urine Glucose (UA) Urine Ketones 08/23/20 08/23/20 08/23/20 11:44 12:03 20:08 Lymphocytes # Potassium Chloride Carbon Dioxide Creatinine Glucose POC Glucose (mg/dL) 69 L 120 H 115 H Calcium Phosphorus Total Protein Ur Specific [place] Urine Glucose (UA) Urine Ketones 08/24/20 08/24/20 02:15 05:46 Lymphocytes # Potassium Chloride Carbon Dioxide Creatinine Glucose POC Glucose (mg/dL) 65 L 60 L Calcium Phosphorus Total Protein Ur Specific [place] Urine Glucose (UA) Urine Ketones Assessment and Plan Assessment: 50-year-old woman with that presented to the emergency department on 08/22/2020 for complaint of nausea vomiting and diarrhea for the past 1 week. She is also having ataxia and unsteady walking for the past 8 days. Unsteady gait, ataxia and slurred speech: Unsure exact etiology. One of possibilities is stroke. Episodes of metabolic deragnement/DKA/hypoglycemia can mimic stroke. DKA--resolved Electrolyte imbalance (phosphorus, hypocalcemia) Episodes of hypoglycemia Diabetes mellitus Hypothyroidism History of thyroid nodule status post thyroidectomy Plan: Ordered MRI of the brain without gadolinium as urgent. Ordered the 2-D echo. Ordered lipid profile. Ordered TSH and hemoglobin A1c. Started the patient on aspirin 300 mg rectal daily since the patient having the nausea vomiting. Once nausea vomiting is resolved we'll switch over to by mouth. Started the patient on the Lipitor 40 mg daily but if she can't tolerate it. Orthostatic vitals is pending once patient is more stable. Occupation therapy and physical therapy are consulted. Regarding that electrolyte imbalance will defer management to the primary team. Recommend avoiding hypoglycemia episodes but will defer the management to the primary team. Regarding patient mangement of diabetes will defer to primary team. Thank you for the consultation. Luisito Allen M.D. Neuro-hospitalist Time with Patient: Greater than 30
[2020-08-24] MEDS: PANTOPRAZOLE 40 MG/10 ML VIAL IVP SCH ×2 (10:35→21:00)
[2020-08-24] MEDS: lisinopriL 5 MG TAB PO SCH (10:35)
[2020-08-24] MEDS: HEPARIN SODIUM,PORCINE 5,000 UNIT/ML 1 ML VIAL SQ SCH ×2 (10:35→21:00)
[2020-08-24] MEDS: ATORVASTATIN 40 MG TAB PO SCH (10:35)
[2020-08-24 11:02] LABS: African American GFR (CKD) >90 (>60 ml/min/1.73 sqM); Anion Gap 5 mmol/L; Blood Urea Nitrogen <2 mg/dL (7-17); Calcium 6.6 mg/dL (8.4-10.2); Carbon Dioxide 33 mmol/L (22-30); Chloride 96 mmol/L (98-107); Glucose 79 mg/dL (74-99); Non-African American GFR(CKD) >90 (>60 ml/min/1.73 sqM); Phosphorus 2.2 mg/dL (2.5-4.5); Sodium 134 mmol/L (137-145)
[2020-08-24 11:09] LABS: Potassium 2.7 mmol/L (3.5-5.1)
[2020-08-24 11:13] LABS: Glucose,Whole Blood 83 mg/dL (75-99)
--- NOTE | 2020-08-24 11:41 | P.CONS ---
History of Present Illness - Reason for Consult Consult date: 08/23/20 Nausea and vomiting Requesting physician: Sky Barber - Chief Complaint Nausea, vomiting, diarrhea - History of Present Illness 50-year-old female with a medical history significant for atopic dermatitis, and long-standing history of insulin-dependent diabetes mellitus who presented to the hospital due to nausea, vomiting and diarrhea. Patient reported 10 days of symptoms of nausea, vomiting and diarrhea. She reports multiple episodes of nausea and nonbloody vomiting. She reports her last episode of yesterday, 1 time. She felt that the vomiting was made worse by eating.. She also reports that she had multiple episodes of nonbloody loose stool starting over the weekend. Imaging over the past week has included a computed tomography scan of the abdomen on which showed a large kidney cysts of the right kidney which was status post drainage an ultrasound of gallbladder on 08/18 showed a 0.4 cm CBD with hyperechoic lesions of the liver likely representing hemangioma. The patient was found to have elevated blood sugars on presentation and was treated for DKA. X-ray of the abdomen showed a nonacute abdomen with no obstructions. Laboratory evaluation on presentation was significant for WBC 7.5, hemoglobin 14.7, platelet count 220,000, total bilirubin 0.7, alkaline phosphatase 66, AST 21 and ALT 23. Review of Systems REVIEW OF SYSTEMS: CONSTITUTIONAL: Denies any fevers, chills, weight change or fatigue. CARDIOVASCULAR: Denies any chest pain, palpitations high or low blood pressures RESPIRATORY: Denies any shortness of breath, hemoptysis or cough. GENITOURINARY: No dysuria or hematuria. MUSCULOSKELETAL: No weakness reported. SKIN: Denies any new rashes or lesions, jaundice or pallor. PSYCHIATRIC: Denies any depression or anxiety. NEUROLOGY: Denies headache, denies any new focal deficits. EARS/NOSE/THROAT: No recent hearing change, congestion, nasal discharge or sore throat. EYES: No pain in eyes, discharge or change in vision. GASTROINTESTINAL: As per HPI. Past Medical History Past Medical History: Diabetes Mellitus, Thyroid Disorder Additional Past Medical History / Comment(s): Atopic DERMATITIS. HX THYROIDECTOMY D/T NODULES. uterine fibriods, heavy irregular menstrual periods History of Any Multi-Drug Resistant Organisms: None Reported Past Surgical History: Section, Tubal Ligation Additional Past Surgical History / Comment(s): THYROIDECTOMY. Past Anesthesia/Blood Transfusion Reactions: No Reported Reaction Past Psychological History: No Psychological Hx Reported Smoking Status: Current every day smoker Past Alcohol Use History: Occasional Additional Past Alcohol Use History / Comment(s): SMOKED AGE [age] YEARS OLD, BEGAN AGAIN 2011, 1/2 PPD. Past Drug Use History: None Reported - Past Family History Mother Family Medical History: Cancer Additional Family Medical History / Comment(s): brain. DM runs in the family Medications and Allergies Home Medications Medication Instructions Recorded Confirmed Type INSULIN ASPART (NovoLOG) [NovoLOG See Protocol SQ AC-TID 03/02/14 08/22/20 History (formulary)] Insulin Degludec [Tresiba 18 unit SQ QAM 06/18/17 08/22/20 History Flextouch U-100] Levothyroxine Sodium [Synthroid] 150 mcg PO DAILY 06/21/17 08/22/20 History Acetaminophen-Codeine 300-30mg 1 tab PO Q6H PRN 3 Days #12 tablet 08/16/20 08/22/20 Rx [Tylenol w/codeine #3] lisinopriL [Zestril] 5 mg PO DAILY 08/16/20 08/22/20 History Ondansetron HCl [Zofran] 4 mg PO Q8H PRN #30 tab 08/21/20 08/22/20 Rx Allergies Allergy/AdvReac Type Severity Reaction Status Date / Time No Known Allergies Allergy Verified 08/22/20 12:44 Physical Exam Vitals: Vital Signs Temp Pulse Pulse Resp BP BP Pulse Ox 08/23/20 12:00 97.3 F L 65 14 135/63 96 08/23/20 08:00 98.9 F 65 16 179/81 95 08/23/20 04:00 97.9 F 80 19 153/82 96 08/23/20 00:00 98.9 F 76 17 124/70 96 08/22/20 20:00 98.7 F 78 18 117/69 96 08/22/20 14:43 97.7 F 71 16 126/69 96 08/22/20 14:33 98.2 F 78 16 119/70 98 Intake and Output 08/22/20 08/23/20 08/23/20 22:59 06:59 14:59 Intake Total 409.183 775 240 Output Total 300 Balance 109.183 775 240 Intake: Intake, IV Titration 409.183 775 Amount Insulin Regular 100 unit 29.183 In Sodium Chloride 0.9% 100 ml @ 0.1 UNITS/KG/HR 6.414 mls/hr IV .[id number] [facility] Rx#:[id number] Potassium Phosphate 10 250 125 mmol In Sodium Chloride 0 .9% 250 ml @ 125 mls/hr IV Q2H [facility] Rx#:[id number] Sodium Chloride 0.9% 1, 130 650 000 ml @ 130 mls/hr IV . [id number] [facility] Rx#:[id number] Oral 240 Output: Urine/Stool Mix 300 Other: Voiding Method Toilet Toilet Toilet Incontinent Incontinent # Voids 1 2 1 # Bowel Movements 1 1 1 Weight 64.6 kg On physical examination, patient appears comfortable in no apparent distress. HEAD: Normocephalic, atraumatic. EYES: No scleral icterus. No conjunctival injection. MOUTH: No lesions, tongue midline. NECK: Trachea midline, no gross abnormalities. CHEST: Clear to auscultation with no wheezing or rhonchi appreciated. HEART: Regular rate and rhythm. ABDOMEN: Soft, nontender to palpation. Bowel sounds are positive. No organomegaly. No guarding or rigidity. EXTREMITIES: No pedal edema. SKIN: No rashes, no jaundice. NEUROLOGIC: Alert and oriented x3. No focal deficits. Results CBC & Chem 7: 08/22/20 10:53 08/23/20 09:11 Labs: Abnormal Lab Results - Last 24 Hours (Table) 08/22/20 08/22/20 08/22/20 Range/Units 14:09 14:55 16:05 Potassium (3.5-5.1) mmol/L Chloride (98-107) mmol/L Carbon Dioxide (22-30) mmol/L Creatinine (0.52-1.04) mg/dL Glucose (74-99) mg/dL POC Glucose (mg/dL) 266 H 243 H 208 H (75-99) mg/dL Calcium (8.4-10.2) mg/dL Phosphorus (2.5-4.5) mg/dL 08/22/20 08/22/20 08/22/20 Range/Units 16:41 16:41 17:02 Potassium 3.4 L (3.5-5.1) mmol/L Chloride 115 H (98-107) mmol/L Carbon Dioxide 18 L (22-30) mmol/L Creatinine 0.46 L (0.52-1.04) mg/dL Glucose 247 H (74-99) mg/dL POC Glucose (mg/dL) 234 H (75-99) mg/dL Calcium (8.4-10.2) mg/dL Phosphorus 0.7 L* (2.5-4.5) mg/dL 08/22/20 08/22/20 08/22/20 Range/Units 18:19 19:04 19:21 Potassium (3.5-5.1) mmol/L Chloride (98-107) mmol/L Carbon Dioxide (22-30) mmol/L Creatinine (0.52-1.04) mg/dL Glucose (74-99) mg/dL POC Glucose (mg/dL) 258 H 201 H (75-99) mg/dL Calcium (8.4-10.2) mg/dL Phosphorus 1.1 L (2.5-4.5) mg/dL 08/22/20 08/22/20 08/23/20 Range/Units 19:21 20:09 02:08 Potassium (3.5-5.1) mmol/L Chloride 115 H (98-107) mmol/L Carbon Dioxide 19 L (22-30) mmol/L Creatinine 0.43 L (0.52-1.04) mg/dL Glucose 178 H (74-99) mg/dL POC Glucose (mg/dL) 139 H 66 L (75-99) mg/dL Calcium (8.4-10.2) mg/dL Phosphorus (2.5-4.5) mg/dL 08/23/20 08/23/20 08/23/20 Range/Units 02:28 09:11 11:44 Potassium (3.5-5.1) mmol/L Chloride 111 H (98-107) mmol/L Carbon Dioxide (22-30) mmol/L Creatinine 0.47 L (0.52-1.04) mg/dL Glucose 120 H (74-99) mg/dL POC Glucose (mg/dL) 110 H 69 L (75-99) mg/dL Calcium 6.8 L (8.4-10.2) mg/dL Phosphorus 1.8 L (2.5-4.5) mg/dL 08/23/20 Range/Units 12:03 Potassium (3.5-5.1) mmol/L Chloride (98-107) mmol/L Carbon Dioxide (22-30) mmol/L Creatinine (0.52-1.04) mg/dL Glucose (74-99) mg/dL POC Glucose (mg/dL) 120 H (75-99) mg/dL Calcium (8.4-10.2) mg/dL Phosphorus (2.5-4.5) mg/dL Abdominal x-ray: report reviewed (X-ray abdomen with no evidence of obstruction, nonacute abdomen.) Assessment and Plan (1) Nausea vomiting and diarrhea Narrative/Plan: 50-year-old female presented to the hospital with nausea, vomiting and abdominal pain. Patient was found to be in diabetic ketoacidosis and is currently receiving treatment. Long-standing history of diarrhea. She denies any signs or symptoms of GI bleeding. Imaging including an x-ray of the abdomen and ultrasound of the abdomen grossly unremarkable. Unclear etiology, may be related to viral or bacterial gastroenteritis, exacerbated by underlying diabetes, plan is for stool studies to rule out infectious etiology. Current Visit: Yes Status: Acute Code(s): R11.2 - NAUSEA WITH VOMITING, UNSPECIFIED; R19.7 - DIARRHEA, UNSPECIFIED SNOMED Code(s): 9922536 (2) DKA (diabetic ketoacidoses) Current Visit: Yes Status: Acute Code(s): E11.10 - TYPE 2 DIABETES MELLITUS WITH KETOACIDOSIS WITHOUT COMA SNOMED Code(s): 637680173 Plan: Supportive care Okay for clear liquid diet Continue antiemetic therapy as needed Bentyl added for abdominal cramping and bowel urgency Stool studies pending Continue tight glycemic control Continue electrolyte replacement as needed No plan for endoscopic sedation at this time Thank you for allowing us to participate in the care of the patient
--- NOTE | 2020-08-24 12:26 | MR ---
EXAMINATION TYPE: MR brain wo con DATE OF EXAM: 08/24/2020 COMPARISON: CT brain and CTA had from earlier today HISTORY: Stroke: ataxia/unsteady gait. Posterior circulation. Abnormal CT. TECHNIQUE: Multiplanar, multisequence imaging of the brain and brainstem is performed without IV cont rast. FINDINGS: Exam suboptimal as fast brain protocol utilized due to patient's ability to hold still and nausea. Diffusion weighted images demonstrate no evidence of a recent infarct or other diffusion abnormality. There is no worrisome extra-axial fluid collection. The ventricular system and cisternal spaces are normal in size and appearance. The brain volume is age appropriate. Few small scattered areas of T2 hyperintensity are present in the white matter bilaterally. For reference 3 to 4 mm right parietal le arleen axial image 20. Midline structures demonstrate normal morphology. The craniocervical junction appears within normal limits. Normal vascular flow voids are present. Mild mucosal thickening involving the left maxillary sinus with inferior 1.8 cm mucous retention cyst or polyp is redemonstrated. Mild mucosal thickening inferior right maxillary sinus. [id number] mucosal thickening involving ethmoid sinuses bilater ally. Mild to moderate mucosal thickening left greater than right frontal sinuses. Globes are intact bilaterally. Mild patchy fluid right mastoid air cells. IMPRESSION: 1. Suboptimal study but no MRI evidence for a recent infarct. 2. Mild to minimal nonspecific white matter changes presumed on the basis of product of chronic small vessel ischemic change. Chronic paranasal sinus disease redemonstrated.
--- NOTE | 2020-08-24 12:37 | P.PN ---
Subjective Progress Note Date: 08/24/20 Principal diagnosis: Nausea, vomiting, and diarrhea Was seen and examined sitting up in her bed. She states she had 3 episodes of emesis today. She has some mild discomfort in her abdomen. She states she has not had a bowel movement today but did yesterday which was loose. She still continues to have episodes of feeling dizzy and unbalanced on her feet. Neurology is currently working her up for TIA/CHILO. The patient underwent CT angiogram of the head and neck no significant abnormality. She also had an MRI of the brain which stated it was a suboptimal study but no evidence for recent infarct, there was mild to minimal nonspecific white matter changes presumed on the basis of product of chronic small vessel ischemic change. Chronic paranasal sinus disease redemonstrated. Objective - Vital Signs Vital signs: Vital Signs Temp 98.6 F 08/24/20 03:27 Pulse 68 08/24/20 03:27 Resp 16 08/24/20 03:27 BP 134/79 08/24/20 03:27 Pulse Ox 96 08/24/20 03:27 Intake & Output 08/23/20 08/24/20 08/24/20 18:59 06:59 18:59 Intake Total 240 125 125 Output Total 500 Balance 240 -375 125 Weight 64.6 kg 65 kg Intake: Intake, IV Titration 125 Amount Potassium Phosphate 10 125 mmol In Sodium Chloride 0 .9% 250 ml @ 125 mls/hr IV Q2H COUNTS INCLUDE 234 BEDS AT THE [facility] Rx#:[id number] Oral 240 125 Output: Urine 400 Emesis 100 Other: Voiding Method Toilet Toilet Incontinent Incontinent # Voids 1 1 # Bowel Movements 3 - Exam General appearance: The patient is alert, oriented, in no acute distress. HET: Head is normocephalic and atraumatic. Conjunctiva pink. Sclera anicteric. Neck: Supple without lymphadenopathy. Abdomen: Soft, epigastric tenderness, nondistended with bowel sounds. No guarding or rigidity. Extremities: Normal skin color and turgor. No pedal edema Neurological: No focal deficits. Alert and oriented 3. - Labs CBC & Chem 7: 08/22/20 10:53 08/24/20 10:17 Labs: Abnormal Lab Results - Last 24 Hours (Table) 08/23/20 08/24/20 08/24/20 Range/Units 20:08 02:15 05:46 Sodium (137-145) mmol/L Potassium (3.5-5.1) mmol/L Chloride (98-107) mmol/L Carbon Dioxide (22-30) mmol/L BUN (7-17) mg/dL Creatinine (0.52-1.04) mg/dL POC Glucose (mg/dL) 115 H 65 L 60 L (75-99) mg/dL Calcium (8.4-10.2) mg/dL Phosphorus (2.5-4.5) mg/dL 08/24/20 Range/Units 10:17 Sodium 134 L (137-145) mmol/L Potassium 2.7 L* (3.5-5.1) mmol/L Chloride 96 L (98-107) mmol/L Carbon Dioxide 33 H (22-30) mmol/L BUN <2 L (7-17) mg/dL Creatinine 0.44 L (0.52-1.04) mg/dL POC Glucose (mg/dL) (75-99) mg/dL Calcium 6.6 L (8.4-10.2) mg/dL Phosphorus 2.2 L (2.5-4.5) mg/dL Microbiology - Last 24 Hours (Table) 08/23/20 12:39 Stool Culture - Preliminary Stool Assessment and Plan (1) Nausea vomiting and diarrhea Narrative/Plan: 50-year-old female presented to the hospital with nausea, vomiting and abdominal pain. Patient was found to be in diabetic ketoacidosis and is currently receiving treatment. Long-standing history of diarrhea. She denies any signs or symptoms of GI bleeding. Imaging including an x-ray of the abdomen and ultrasound of the abdomen grossly unremarkable. Unclear etiology, may be related to viral or bacterial gastroenteritis, exacerbated by underlying diabetes, plan is for stool studies to rule out infectious etiology. Current Visit: Yes Status: Acute Code(s): R11.2 - NAUSEA WITH VOMITING, UNSPECIFIED; R19.7 - DIARRHEA, UNSPECIFIED SNOMED Code(s): 9991654 (2) DKA (diabetic ketoacidoses) Current Visit: Yes Status: Acute Code(s): E11.10 - TYPE 2 DIABETES MELLITUS WITH KETOACIDOSIS WITHOUT COMA SNOMED Code(s): 605746183 Plan: Supportive care Advance diet as tolerated Continue antiemetic therapy as needed, will change Zofran to around the clock Bentyl added for abdominal cramping and bowel urgency Stool studies pending, Clostridium difficile toxin negative Continue tight glycemic control Continue electrolyte replacement as needed No plan for endoscopic evaluation at this time Thank you for allowing us to participate in the care of the patient The impression and plan of care has been dictated as directed. I performed a history and examination of this patient, discussed the same with the dictator. I agree with the dictator's note ,documented as a scribe. Any additional findings or plans will be noted.
[2020-08-24] MEDS ORDERED: Potassium Replacement Protocol 1 EACH MISC MISCELLANE PRN (13:12)
[2020-08-24] MEDS ORDERED: POTASSIUM CHLORIDE 20 MEQ in WATER FOR INJECTION 1 100ML.BAG IVPB STA (14:19)
--- NOTE | 2020-08-24 14:19 | P.PN ---
Subjective Progress Note Date: 08/24/20 Objective - Vital Signs Vital signs: Vital Signs Temp 98.6 F 08/24/20 03:27 Pulse 68 08/24/20 03:27 Resp 16 08/24/20 03:27 BP 134/79 08/24/20 03:27 Pulse Ox 96 08/24/20 03:27 Intake & Output 08/23/20 08/24/20 08/24/20 18:59 06:59 18:59 Intake Total 240 125 250 Output Total 500 450 Balance 240 -375 -200 Weight 64.6 kg 65 kg Intake: Intake, IV Titration 125 Amount Potassium Phosphate 10 125 mmol In Sodium Chloride 0 .9% 250 ml @ 125 mls/hr IV Q2H [facility] Rx#:[id number] Oral 240 250 Output: Urine 400 450 Emesis 100 Other: Voiding Method Toilet Toilet Incontinent Incontinent # Voids 1 1 # Bowel Movements 3 - Constitutional General appearance: Present: no acute distress - Respiratory Respiratory: bilateral: CTA - Cardiovascular Rhythm: regular - Gastrointestinal General gastrointestinal: Present: normal bowel sounds - Integumentary Integumentary: Present: normal - Labs CBC & Chem 7: 08/22/20 10:53 08/24/20 10:17 Labs: Abnormal Lab Results - Last 24 Hours (Table) 08/23/20 08/24/20 08/24/20 Range/Units 20:08 02:15 05:46 Sodium (137-145) mmol/L Potassium (3.5-5.1) mmol/L Chloride (98-107) mmol/L Carbon Dioxide (22-30) mmol/L BUN (7-17) mg/dL Creatinine (0.52-1.04) mg/dL POC Glucose (mg/dL) 115 H 65 L 60 L (75-99) mg/dL Calcium (8.4-10.2) mg/dL Phosphorus (2.5-4.5) mg/dL 08/24/20 Range/Units 10:17 Sodium 134 L (137-145) mmol/L Potassium 2.7 L* (3.5-5.1) mmol/L Chloride 96 L (98-107) mmol/L Carbon Dioxide 33 H (22-30) mmol/L BUN <2 L (7-17) mg/dL Creatinine 0.44 L (0.52-1.04) mg/dL POC Glucose (mg/dL) (75-99) mg/dL Calcium 6.6 L (8.4-10.2) mg/dL Phosphorus 2.2 L (2.5-4.5) mg/dL Microbiology - Last 24 Hours (Table) 08/23/20 12:39 Stool Culture - Preliminary Stool Assessment and Plan (1) DKA (diabetic ketoacidoses) Narrative/Plan: present initially now resolved Current Visit: Yes Status: Acute Code(s): E11.10 - TYPE 2 DIABETES MELLITUS WITH KETOACIDOSIS WITHOUT COMA SNOMED Code(s): 037549661 (2) Nausea vomiting and diarrhea Narrative/Plan: appreciate GI input Current Visit: Yes Status: Acute Code(s): R11.2 - NAUSEA WITH VOMITING, UNSPECIFIED; R19.7 - DIARRHEA, UNSPECIFIED SNOMED Code(s): 0035259 (3) Abdominal pain Narrative/Plan: optimize pain control Current Visit: No Status: Acute Code(s): R10.9 - UNSPECIFIED ABDOMINAL PAIN SNOMED Code(s): 18424195 (4) Hypokalemia Narrative/Plan: replete and recheck later this evening Current Visit: Yes Status: Acute Code(s): E87.6 - HYPOKALEMIA SNOMED Code(s): 98092615
[2020-08-24] MEDS: ASPIRIN 81 MG PO SCH (15:43)
[2020-08-24] MEDS: POTASSIUM CHLORIDE ER 20 MEQ TAB.ER PO SCH ×4 (15:43→18:25)
[2020-08-24 16:41] LABS: Glucose,Whole Blood 178 mg/dL (75-99)
[2020-08-24 18:54] LABS: African American GFR (CKD) >90 (>60 ml/min/1.73 sqM); Anion Gap 7 mmol/L; Blood Urea Nitrogen 4 mg/dL (7-17); Calcium 6.9 mg/dL (8.4-10.2); Carbon Dioxide 33 mmol/L (22-30); Chloride 93 mmol/L (98-107); Glucose 194 mg/dL (74-99); Non-African American GFR(CKD) >90 (>60 ml/min/1.73 sqM); Sodium 133 mmol/L (137-145)
[2020-08-24 19:07] LABS: Hemoglobin A1C 7.8 % (4.0-6.0)
[2020-08-24 19:08] LABS: Potassium 2.6 mmol/L (3.5-5.1)
[2020-08-24 20:04] LABS: Glucose,Whole Blood 175 mg/dL (75-99)
[2020-08-24] MEDS: ONDANSETRON 4 MG/2 ML VIAL IVP SCH (21:00)
[2020-08-25] MEDS ORDERED: Phosphorus Replacement Protoco 1 EACH MISC MISCELLANE PRN (00:15)
[2020-08-25] MEDS: ONDANSETRON 4 MG/2 ML VIAL IVP SCH ×5 (00:22→21:23)
[2020-08-25] MEDS: MAGNESIUM SULFATE-D5W PMX 1 GM in DEXTROSE/WATER 1 100ML.BAG IVPB SCH ×2 (00:29→02:01)
[2020-08-25] MEDS ORDERED: POTASSIUM PHOSPHATE 10 MMOL in SODIUM CHLORIDE 0.9% 250 ML IV ONE (00:30)
[2020-08-25] MEDS: POTASSIUM CHLORIDE ER 20 MEQ TAB.ER PO SCH ×3 (02:01→06:21)
[2020-08-25] MEDS: LEVOTHYROXINE 75 MCG TAB PO SCH (06:21)
[2020-08-25] MEDS: INSULIN DETEMIR (LEVEMIR) 100 UNIT/ML SYR SQ SCH ×2 (06:38→21:23)
[2020-08-25] MEDS: INSULIN ASPART (NovoLOG) 100 UNIT/ML VIAL SQ SCH ×4 (06:38→21:21)
[2020-08-25] MEDS: HEPARIN SODIUM,PORCINE 5,000 UNIT/ML 1 ML VIAL SQ SCH ×2 (08:34→21:23)
[2020-08-25] MEDS: ASPIRIN 81 MG PO SCH (08:34)
[2020-08-25] MEDS: ATORVASTATIN 40 MG TAB PO SCH (08:34)
[2020-08-25] MEDS: lisinopriL 5 MG TAB PO SCH (08:35)
[2020-08-25] MEDS: PANTOPRAZOLE 40 MG/10 ML VIAL IVP SCH (08:35)
--- NOTE | 2020-08-25 10:23 | ECHOF ---
Referral Reason:stroke MEASUREMENTS -------- HEIGHT: 152.4 cm WEIGHT: 65.3 kg BP: IVSd: 0.9 cm (0.6 - 1.1) LVIDd: 3.5 cm (3.9 - 5.3) LVPWd: 0.9 cm (0.6 - 1.1) EDV(Teich): 53 ml IVSs: 1.3 cm LVIDs: 2.4 cm LVPWs: 1.6 cm %IVS Thck: 42 % ESV(Teich): 21 ml EF(Teich): 61 % %FS: 32 % SV(Teich): 32 ml LA Diam: 2.7 cm (2.7 - 3.8) RVIDd: 2.4 cm (< 3.3) Ao Diam: 2.6 cm (2.0 - 3.7) AV Cusp: 1.9 cm (1.5 - 2.6) EPSS: 0.5 cm MV E Saú[place]: 1.06 m/s MV DecT: 203 ms MV Dec [place]: 5.2 m/s MV A Saú[place]: 1.03 m/s MV E/A Ratio: 1.03 MV PHT: 59 ms AV Vmax: 1.18 m/s AV maxP.57 mmHg TR Vmax: 2.21 m/s TR maxP.48 mmHg RAP: 5.00 mmHg RVSP: 24.48 mmHg MV EF SLOPE: 133.81 mm/s (70 - 150) MV EXCURSION: 20.02 mm (> 18.000) FINDINGS -------- Sinus rhythm. This was a technically good study. The left ventricular size is normal. Left ventricular wall thickness is normal. Overall left vent ricular systolic function is normal with, an EF between 60 - 65 %. The right ventricle is normal in size and function. The left atrial size is normal. The right atrium is normal in size. Interatrial and interventricular septum intact. The aortic valve is trileaflet and appears structurally normal. The mitral valve is normal. Mild tricuspid regurgitation present. Right ventricular systolic pressure is normal at < 35 mmHg. There is no pulmonic regurgitation present. The aortic root size is normal. Normal inferior vena cava with normal inspiratory collapse consistent with estimated right atrial pre ssure of 5 mmHg. There is no pericardial effusion. CONCLUSIONS -------- 1. The left ventricular size is normal. 2. Left ventricular wall thickness is normal. 3. Overall left ventricular systolic function is normal with, an EF between 60 - 65 %. 4. The aortic valve is trileaflet and appears structurally normal. 5. Mild tricuspid regurgitation present. 6. There is no pericardial effusion. [employer] TE[employer]: Zoë Dominique RDCS
[2020-08-25 11:55] LABS: Glucose,Whole Blood 362 mg/dL (75-99)
[2020-08-25 12:01] LABS: African American GFR (CKD) >90 (>60 ml/min/1.73 sqM); Anion Gap 15 mmol/L; Blood Urea Nitrogen 10 mg/dL (7-17); Calcium 6.9 mg/dL (8.4-10.2); Carbon Dioxide 23 mmol/L (22-30); Chloride 95 mmol/L (98-107); Glucose 342 mg/dL (74-99); Non-African American GFR(CKD) >90 (>60 ml/min/1.73 sqM); Sodium 133 mmol/L (137-145)
[2020-08-25 12:02] LABS: African American GFR (CKD) >90 (>60 ml/min/1.73 sqM); Anion Gap 13 mmol/L; Blood Urea Nitrogen 10 mg/dL (7-17); Calcium 6.9 mg/dL (8.4-10.2); Carbon Dioxide 23 mmol/L (22-30); Chloride 96 mmol/L (98-107); Glucose 346 mg/dL (74-99); Non-African American GFR(CKD) >90 (>60 ml/min/1.73 sqM); Phosphorus 3.5 mg/dL (2.5-4.5); Sodium 132 mmol/L (137-145)
--- NOTE | 2020-08-25 15:31 | P.PN ---
Subjective Progress Note Date: 08/25/20 Patient was seen at bedside and she stated that that she's continues to feel unsteady off-balance the today and there is no improvement. She denies of any diplopia she feels like she has generalized weakness she denies of any numbness. Denies of any visual disturbance. Denies of any sensory loss. Per the patient nurse as well as the primary team and they felt that the patient exam was inconsistent and possibly there is times that she'll be able to hop picker herself but when the she was being watched she was more unsteady and had more symptoms. I asked the patient if she had any stress at home or any psychiatric problem at home and she denied it. Objective - Vital Signs Vital signs: Vital Signs Temp 97.8 F 08/25/20 08:00 Pulse 73 08/25/20 12:00 Resp 16 08/25/20 12:00 BP 134/62 08/25/20 12:00 Pulse Ox 95 08/25/20 12:00 Intake & Output 08/24/20 08/25/20 08/25/20 18:59 06:59 18:59 Intake Total 375 222 Output Total 450 Balance -75 222 Weight 58.5 kg Intake: Oral 375 222 Output: Urine 450 Other: Voiding Method Toilet Bedpan Incontinent # Voids 1 - Exam GENERAL: The patient is lying in bed and is in mild acute distress. CHEST: The heart rate is regular rate rhythm. No murmurs to auscultation. No carotid bruit bilaterally. NEUROLOGICAL: Higher mental function: The patient is awake, alert, oriented to self, place and time. Patient is following commands. No aphasia and no neglect. Cranial nerves: The pupils are round, equal and reactive to light and accommodation. Visual sommer are full to confrontation throughout. Extraocular movement is intact no nystagmus is noted. Facial sensation is normal to touch throughout. The facial strength is normal throughout. Hearing is normal bilaterally to hand rub. Tongue is midline and moved [id number] without any difficulty. No dysarthria noted. Shoulder shrug is normal bilaterally. Motor: Gait was deferred. The strength is 5 over 5 throughout. Normal tone and bulk. There is no resting tremor or no spontaneous abnormal movements. Cerebellum: With a finger to nose bilaterally the patient the was inconsistent , she was ataxic but at times she was not ataxic and was very inconsistent that. But when I had her with her index finger touching my finger there is no ataxia that was appreciated the or may be minimal at most. While they heel to hammer was normal bilaterally. Sensation: Sensation is normal to touch throughout. Reflexes (right/left): 2+ throughout. Plantars are downgoing bilaterally. - Labs CBC & Chem 7: 08/22/20 10:53 08/25/20 10:52 Labs: Abnormal Lab Results - Last 24 Hours (Table) 08/24/20 08/24/20 08/24/20 Range/Units 10:17 16:23 18:27 Sodium 133 L (137-145) mmol/L Potassium 2.6 L* (3.5-5.1) mmol/L Chloride 93 L (98-107) mmol/L Carbon Dioxide 33 H (22-30) mmol/L BUN 4 L (7-17) mg/dL Creatinine 0.44 L (0.52-1.04) mg/dL Glucose 194 H (74-99) mg/dL POC Glucose (mg/dL) 178 H (75-99) mg/dL Hemoglobin A1c 7.8 H (4.0-6.0) % Calcium 6.9 L (8.4-10.2) mg/dL 08/24/20 08/24/20 08/25/20 Range/Units 20:03 22:32 10:52 Sodium 132 L (137-145) mmol/L Potassium 2.8 L (3.5-5.1) mmol/L Chloride 96 L (98-107) mmol/L Carbon Dioxide (22-30) mmol/L BUN (7-17) mg/dL Creatinine 0.48 L (0.52-1.04) mg/dL Glucose 346 H (74-99) mg/dL POC Glucose (mg/dL) 175 H (75-99) mg/dL Hemoglobin A1c (4.0-6.0) % Calcium 6.9 L (8.4-10.2) mg/dL 08/25/20 08/25/20 Range/Units 10:52 11:43 Sodium 133 L (137-145) mmol/L Potassium (3.5-5.1) mmol/L Chloride 95 L (98-107) mmol/L Carbon Dioxide (22-30) mmol/L BUN (7-17) mg/dL Creatinine 0.46 L (0.52-1.04) mg/dL Glucose 342 H (74-99) mg/dL POC Glucose (mg/dL) 362 H (75-99) mg/dL Hemoglobin A1c (4.0-6.0) % Calcium 6.9 L (8.4-10.2) mg/dL Assessment and Plan Assessment: 50-year-old woman with that presented to the emergency department on 08/22/2020 for complaint of nausea vomiting and diarrhea for the past 1 week. She is also having ataxia and unsteady walking for the past 8 days. Unsteady gait, ataxia: Unsure exact etiology. Episodes of metabolic deragnement/DKA/hypoglycemia can mimic stroke. From the patient physical exam at times was inconsistent with the ataxia. DKA--resolved Electrolyte imbalance (phosphorus, hypocalcemia) Episodes of hypoglycemia Diabetes mellitus Hypothyroidism History of thyroid nodule status post thyroidectomy Plan: MRI of the brain without gadolinium: Suboptimal study but no MRI evidence of recent infarct. Mild to minimal nonspecific white matter changes presumably on the basis of chronic of chronic small vessel ischemic changes. Chronic paranasal sinus disease redemonstrated. CTA of the head and neck was reported as no significant diameter reduction to account for the patient's symptoms. No significant abnormality. D cervical spine ordered by the primary team was reported as no evidence for acute fracture or subluxation of the cervical spine that. 2-D echo: Was reported as left ventricular size is normal. Left ventricle wall thickness is normal. Ejection fraction between 60-65%. lipid profile: Triglyceride 114, cholesterol 135, LDL 61, HDL 51. TSH: 0.786. hemoglobin A1c: 7.8. Started the patient on aspirin 300 mg rectal daily since the patient having the nausea vomiting. Once nausea vomiting is resolved we'll switch over to by mouth. Started the patient on the Lipitor 40 mg daily but if she can't tolerate it. Orthostatic vitals is pending once patient is more stable. Occupation therapy and physical therapy are on board. I ordered the ionized calcium, vitamin B12, folate, copper and zinc levels. The patient nurse was noted to have a watch role periodic exams to see the patient's consistency of her deficits. Regarding that electrolyte imbalance correction will defer management to the primary team. Recommend avoiding hypoglycemia episodes but will defer the management to the primary team. Regarding patient mangement of diabetes will defer to primary team. Plan was discussed with the primary team as well as the nurse. Luisito Allen M.D. Neuro-hospitalist Time with Patient: Less than 30
--- NOTE | 2020-08-25 16:22 | P.PN ---
Subjective Progress Note Date: 08/25/20 Principal diagnosis: Nausea and vomiting Patient is seen lying in bed. Still having some nausea but she feels this is somewhat improved. No bowel movement reported today, diarrhea improved. Objective - Vital Signs Vital signs: Vital Signs Temp 97.8 F 08/25/20 08:00 Pulse 74 08/25/20 08:00 Resp 16 08/25/20 08:00 BP 123/60 08/25/20 08:00 Pulse Ox 96 08/25/20 08:00 Intake & Output 08/24/20 08/25/20 08/25/20 18:59 06:59 18:59 Intake Total 375 222 Output Total 450 Balance -75 222 Weight 58.5 kg Intake: Oral 375 222 Output: Urine 450 Other: Voiding Method Toilet Bedpan Incontinent # Voids 1 - Exam On physical examination, patient appears comfortable in no apparent distress. HEAD: Normocephalic, atraumatic. EYES: No scleral icterus. No conjunctival injection. MOUTH: No lesions, tongue midline. NECK: Trachea midline, no gross abnormalities. ABDOMEN: Soft, nontender. Bowel sounds are positive. No organomegaly. No guarding or rigidity. EXTREMITIES: No pedal edema. SKIN: No rashes, no jaundice. NEUROLOGIC: Alert and oriented x3. No focal deficits. - Labs CBC & Chem 7: 08/22/20 10:53 08/25/20 10:52 Labs: Abnormal Lab Results - Last 24 Hours (Table) 08/24/20 08/24/20 08/24/20 Range/Units 10:17 16:23 18:27 Sodium 133 L (137-145) mmol/L Potassium 2.6 L* (3.5-5.1) mmol/L Chloride 93 L (98-107) mmol/L Carbon Dioxide 33 H (22-30) mmol/L BUN 4 L (7-17) mg/dL Creatinine 0.44 L (0.52-1.04) mg/dL Glucose 194 H (74-99) mg/dL POC Glucose (mg/dL) 178 H (75-99) mg/dL Hemoglobin A1c 7.8 H (4.0-6.0) % Calcium 6.9 L (8.4-10.2) mg/dL 08/24/20 08/24/20 08/25/20 Range/Units 20:03 22:32 10:52 Sodium 132 L (137-145) mmol/L Potassium 2.8 L (3.5-5.1) mmol/L Chloride 96 L (98-107) mmol/L Carbon Dioxide (22-30) mmol/L BUN (7-17) mg/dL Creatinine 0.48 L (0.52-1.04) mg/dL Glucose 346 H (74-99) mg/dL POC Glucose (mg/dL) 175 H (75-99) mg/dL Hemoglobin A1c (4.0-6.0) % Calcium 6.9 L (8.4-10.2) mg/dL 08/25/20 08/25/20 Range/Units 10:52 11:43 Sodium 133 L (137-145) mmol/L Potassium (3.5-5.1) mmol/L Chloride 95 L (98-107) mmol/L Carbon Dioxide (22-30) mmol/L BUN (7-17) mg/dL Creatinine 0.46 L (0.52-1.04) mg/dL Glucose 342 H (74-99) mg/dL POC Glucose (mg/dL) 362 H (75-99) mg/dL Hemoglobin A1c (4.0-6.0) % Calcium 6.9 L (8.4-10.2) mg/dL Assessment and Plan (1) Nausea vomiting and diarrhea Narrative/Plan: 50-year-old female presented to the hospital with nausea, vomiting and abdominal pain. Patient was found to be in diabetic ketoacidosis and is currently receiving treatment. Long-standing history of diarrhea. She denies any signs or symptoms of GI bleeding. Imaging including an x-ray of the abdomen and ultrasound of the abdomen grossly unremarkable. Unclear etiology, may be related to viral or bacterial gastroenteritis, exacerbated by underlying diabetes, plan is for stool studies to rule out infectious etiology with testing for Clostridium difficile negative and stool culture pending. Overall diarrhea improving with no bowel movements today. Current Visit: Yes Status: Acute Code(s): R11.2 - NAUSEA WITH VOMITING, UNSPECIFIED; R19.7 - DIARRHEA, UNSPECIFIED SNOMED Code(s): 3580174 (2) DKA (diabetic ketoacidoses) Current Visit: Yes Status: Acute Code(s): E11.10 - TYPE 2 DIABETES MELLITUS WITH KETOACIDOSIS WITHOUT COMA SNOMED Code(s): 973275013 Plan: Supportive care Okay for diet as tolerated Continue antiemetic therapy as needed Bentyl added for abdominal cramping and bowel urgency Stool studies performed with culture pending and testing for Clostridium difficile toxin negative Continue tight glycemic control Continue electrolyte replacement as needed No plan for endoscopic sedation at this time Thank you for allowing us to participate in the care of the patient
[2020-08-25 16:55] LABS: Glucose,Whole Blood 265 mg/dL (75-99)
[2020-08-25] MEDS: PANTOPRAZOLE 40 MG TABLET PO SCH (17:33)
[2020-08-25 20:53] LABS: Glucose,Whole Blood 221 mg/dL (75-99)
--- NOTE | 2020-08-25 21:23 | P.PN ---
Subjective Progress Note Date: 08/25/20 (delayed charting seen at 1000) Principal diagnosis: DKA Patient is a 50-year-old female with a history of diabetes mellitus, atopic dermatitis, and hypothyroidism after thyroidectomy secondary to nodules who initially presented to the emergency room with nausea, vomiting, and diarrhea. She was subsequently found to have DKA. Patient seen and examined at bedside. She is still feeling very off balance, she states she is having a hard time eating or bringing things to her nose. She reports that she is having difficulty ambulating. She states that she is having intermittent nausea but is currently resolved. She denies any current diarrhea. General: non toxic, no distress, appears at stated age Derm: warm, dry Head: atraumatic, normocephalic, symmetric Eyes: EOMI, no lid lag, anicteric sclera Mouth: no lip lesion, mucus membranes moist Cardiovascular: S1S2 reg, no murmur, positive posterior tibial pulse bilateral, Lungs: CTA bilateral, no rhonchi, no rales , no accessory muscle use Abdominal: soft, nontender to palpation, no guarding, no appreciable organomega ly Ext: no gross muscle atrophy, no edema, no contractures Neuro: CN II-XI grossly intact, poor finger to nose, difficulty standing up with some lower extremity weakness as well as shifting [id number] Psych: Alert, oriented, flat affect Ataxia -Neurology recommendations appreciated -MRI of the brain shows no recent infarct, but was a suboptimal study, and mild to minimal nonspecific white matter ischemic changes. Echocardiogram with ejection fraction 60-65% and no significant valvular disease -CT of the head and neck showed no significant diameter reduction to help the patient's symptoms -CT head without contrast showed age-related atrophic and small vessel ischemic changes -CT of the neck demonstrated no evidence of acute fracture or subluxation Gastroenteritis -GI recommendations appreciated: No plan for scope at this point in time -Supportive care with antiemetics, and Bentyl -C. diff negative, await stool culture -Rule out Covid 19 -Supportive care -If not resolved soon possible repeat CT abdomen and pelvis Diabetes mellitus type 2 -A1c 7.5 -Continue with Levemir 10 units twice daily plus sliding scale insulin Large right renal cyst -Status post IR drainage, plan is to follow-up with urology as outpatient Multiple hypoechoic liver lesions resected for hemangioma -Possible MRI as outpatient for further evaluation Chronic: Hypertension Hypothyroidism DKA, resolved Objective - Vital Signs Vital signs: Vital Signs Temp 97.8 F 08/25/20 08:00 Pulse 70 08/25/20 16:00 Resp 18 08/25/20 16:00 BP 121/66 08/25/20 16:00 Pulse Ox 96 08/25/20 16:00 Intake & Output 08/25/20 08/25/20 08/26/20 06:59 18:59 06:59 Intake Total 684 Balance 684 Weight 58.5 kg Intake: Oral 684 Other: Voiding Method Bedpan # Voids 1 - Labs CBC & Chem 7: 08/22/20 10:53 08/25/20 10:52 Labs: Abnormal Lab Results - Last 24 Hours (Table) 08/24/20 08/25/20 08/25/20 Range/Units 22:32 10:52 10:52 Sodium 132 L 133 L (137-145) mmol/L Potassium 2.8 L (3.5-5.1) mmol/L Chloride 96 L 95 L (98-107) mmol/L Creatinine 0.48 L 0.46 L (0.52-1.04) mg/dL Glucose 346 H 342 H (74-99) mg/dL POC Glucose (mg/dL) (75-99) mg/dL Calcium 6.9 L 6.9 L (8.4-10.2) mg/dL Ionized Calcium Luis (4.5-5.3) mg/dL Vitamin B12 1164.0 H (200.0-944.0) pg/mL 08/25/20 08/25/20 08/25/20 Range/Units 11:43 15:44 16:46 Sodium (137-145) mmol/L Potassium (3.5-5.1) mmol/L Chloride (98-107) mmol/L Creatinine (0.52-1.04) mg/dL Glucose (74-99) mg/dL POC Glucose (mg/dL) 362 H 265 H (75-99) mg/dL Calcium (8.4-10.2) mg/dL Ionized Calcium Luis 4.1 L (4.5-5.3) mg/dL Vitamin B12 (200.0-944.0) pg/mL 08/25/20 Range/Units 20:52 Sodium (137-145) mmol/L Potassium (3.5-5.1) mmol/L Chloride (98-107) mmol/L Creatinine (0.52-1.04) mg/dL Glucose (74-99) mg/dL POC Glucose (mg/dL) 221 H (75-99) mg/dL Calcium (8.4-10.2) mg/dL Ionized Calcium Luis (4.5-5.3) mg/dL Vitamin B12 (200.0-944.0) pg/mL Microbiology - Last 24 Hours (Table) 08/23/20 12:39 Stool Culture - Preliminary Stool
[2020-08-26] MEDS: ONDANSETRON 4 MG/2 ML VIAL IVP SCH ×2 (04:00→10:47)
[2020-08-26 06:55] LABS: Glucose,Whole Blood 76 mg/dL (75-99)
[2020-08-26] MEDS: LEVOTHYROXINE 75 MCG TAB PO SCH (06:56)
[2020-08-26] MEDS: INSULIN ASPART (NovoLOG) 100 UNIT/ML VIAL SQ SCH ×4 (06:57→20:39)
[2020-08-26] MEDS: INSULIN DETEMIR (LEVEMIR) 100 UNIT/ML SYR SQ SCH (06:57)
[2020-08-26] MEDS: PANTOPRAZOLE 40 MG TABLET PO SCH ×2 (06:57→17:26)
[2020-08-26] MEDS ORDERED: ONDANSETRON 4 MG/2 ML VIAL IVP PRN (09:27)
[2020-08-26 09:29] LABS: HCT 38.7 % (34.0-46.0); HGB 13.2 gm/dL (11.4-16.0); MCH 29.7 pg (25.0-35.0); MCHC 34.2 g/dL (31.0-37.0); Mean Platelet Volume 7.7; Platelet Count 272 k/uL (150-450); RBC 4.45 m/uL (3.80-5.40); RDW 13.9 % (11.5-15.5); WBC 8.2 k/uL (3.8-10.6)
[2020-08-26 09:40] LABS: African American GFR (CKD) >90 (>60 ml/min/1.73 sqM); Anion Gap 7 mmol/L; Blood Urea Nitrogen 14 mg/dL (7-17); Calcium 7.6 mg/dL (8.4-10.2); Carbon Dioxide 29 mmol/L (22-30); Chloride 100 mmol/L (98-107); Glucose 118 mg/dL (74-99); Magnesium 1.7 mg/dL (1.6-2.3); Non-African American GFR(CKD) >90 (>60 ml/min/1.73 sqM); Phosphorus 2.6 mg/dL (2.5-4.5); Sodium 136 mmol/L (137-145)
[2020-08-26] MEDS: HEPARIN SODIUM,PORCINE 5,000 UNIT/ML 1 ML VIAL SQ SCH ×2 (09:43→20:39)
[2020-08-26] MEDS: ASPIRIN 81 MG PO SCH (09:43)
[2020-08-26] MEDS: lisinopriL 5 MG TAB PO SCH (09:43)
[2020-08-26] MEDS: ATORVASTATIN 40 MG TAB PO SCH (09:43)
[2020-08-26] MEDS ORDERED: POTASSIUM CHLORIDE ER 20 MEQ TAB.ER PO STA (11:00)
[2020-08-26 12:14] LABS: Glucose,Whole Blood 225 mg/dL (75-99)
--- NOTE | 2020-08-26 14:29 | P.PN ---
Subjective Progress Note Date: 08/26/20 Principal diagnosis: Nausea and vomiting Patient is seen lying in bed. The patient is still reporting some nausea but no further vomiting. She does report she has had improved oral intake. Objective - Vital Signs Vital signs: Vital Signs Temp 98.4 F 08/26/20 08:00 Pulse 75 08/26/20 08:00 Resp 16 08/26/20 08:00 BP 160/82 08/26/20 08:00 Pulse Ox 96 08/26/20 08:00 Intake & Output 08/25/20 08/26/20 08/26/20 18:59 06:59 18:59 Intake Total 684 Balance 684 Weight 59.5 kg Intake: Oral 684 Other: Voiding Method Bedpan # Voids 1 - Exam On physical examination, patient appears comfortable in no apparent distress. HEAD: Normocephalic, atraumatic. EYES: No scleral icterus. No conjunctival injection. MOUTH: No lesions, tongue midline. NECK: Trachea midline, no gross abnormalities. ABDOMEN: Soft, nontender. Bowel sounds are positive. No organomegaly. No guarding or rigidity. EXTREMITIES: No pedal edema. SKIN: No rashes, no jaundice. NEUROLOGIC: Alert and oriented x3. No focal deficits. - Labs CBC & Chem 7: 08/26/20 09:03 08/26/20 09:03 Labs: Abnormal Lab Results - Last 24 Hours (Table) 08/25/20 08/25/20 08/25/20 Range/Units 10:52 10:52 11:43 Sodium 132 L 133 L (137-145) mmol/L Potassium (3.5-5.1) mmol/L Chloride 96 L 95 L (98-107) mmol/L Creatinine 0.48 L 0.46 L (0.52-1.04) mg/dL Glucose 346 H 342 H (74-99) mg/dL POC Glucose (mg/dL) 362 H (75-99) mg/dL Calcium 6.9 L 6.9 L (8.4-10.2) mg/dL Ionized Calcium Luis (4.5-5.3) mg/dL Vitamin B12 1164.0 H (200.0-944.0) pg/mL 08/25/20 08/25/20 08/25/20 Range/Units 15:44 16:46 20:52 Sodium (137-145) mmol/L Potassium (3.5-5.1) mmol/L Chloride (98-107) mmol/L Creatinine (0.52-1.04) mg/dL Glucose (74-99) mg/dL POC Glucose (mg/dL) 265 H 221 H (75-99) mg/dL Calcium (8.4-10.2) mg/dL Ionized Calcium Luis 4.1 L (4.5-5.3) mg/dL Vitamin B12 (200.0-944.0) pg/mL 08/26/20 Range/Units 09:03 Sodium 136 L (137-145) mmol/L Potassium 3.0 L (3.5-5.1) mmol/L Chloride (98-107) mmol/L Creatinine 0.47 L (0.52-1.04) mg/dL Glucose 118 H (74-99) mg/dL POC Glucose (mg/dL) (75-99) mg/dL Calcium 7.6 L (8.4-10.2) mg/dL Ionized Calcium Luis (4.5-5.3) mg/dL Vitamin B12 (200.0-944.0) pg/mL Microbiology - Last 24 Hours (Table) 08/23/20 12:39 Stool Culture - Preliminary Stool Assessment and Plan (1) Nausea vomiting and diarrhea Narrative/Plan: 50-year-old female presented to the hospital with nausea, vomiting and abdominal pain. Patient was found to be in diabetic ketoacidosis and is currently recei ving treatment. Long-standing history of diarrhea. She denies any signs or symptoms of GI bleeding. Imaging including an x-ray of the abdomen and ultrasound of the abdomen grossly unremarkable. Unclear etiology, may be related to viral or bacterial gastroenteritis, exacerbated by underlying diab etes, plan is for stool studies to rule out infectious etiology with testing for Clostridium difficile negative and stool culture pending. Overall diarrhea improving with no bowel movements today. No further vomiting and patient is reporting increased oral intake. Current Visit: Yes Status: Acute Code(s): R11.2 - NAUSEA WITH VOMITING, UNSPECIFIED; R19.7 - DIARRHEA, UNSPECIFIED SNOMED Code(s): 2285188 (2) DKA (diabetic ketoacidoses) Current Visit: Yes Status: Acute Code(s): E11.10 - TYPE 2 DIABETES MELLITUS WITH KETOACIDOSIS WITHOUT COMA SNOMED Code(s): 142779089 Plan: Supportive care Okay for diet as tolerated Continue antiemetic therapy as needed Bentyl added for abdominal cramping and bowel urgency Stool studies performed with culture pending and testing for Clostridium difficile toxin negative Continue tight glycemic control Continue electrolyte replacement as needed No plan for endoscopic sedation at this time Thank you for allowing us to participate in the care of the patient
--- NOTE | 2020-08-26 14:29 | P.PN ---
Subjective Progress Note Date: 08/26/20 She was seen at the bedside and she said that she feels about the same as yesterday. Objective - Vital Signs Vital signs: Vital Signs Temp 98.4 F 08/26/20 08:00 Pulse 74 08/26/20 12:00 Resp 20 08/26/20 12:00 BP 164/84 08/26/20 12:00 Pulse Ox 94 L 08/26/20 12:00 Intake & Output 08/25/20 08/26/20 08/26/20 18:59 06:59 18:59 Intake Total 684 Balance 684 Weight 59.5 kg Intake: Oral 684 Other: Voiding Method Bedpan # Voids 1 - Exam GENERAL: The patient is lying in bed and is in mild acute distress. NEUROLOGICAL: Higher mental function: The patient is awake, alert, oriented to self, place and time. Patient is following commands. No aphasia and no neglect. Cranial nerves: The pupils are round, equal and reactive to light and accommodation. Visual sommer are full to confrontation throughout. Extraocular movement is intact no nystagmus is noted. Facial sensation is normal to touch throughout. The facial strength is normal throughout. Hearing is normal bilaterally to hand rub. Tongue is midline and moved [id number] without any difficulty. No dysarthria noted. Shoulder shrug is normal bilaterally. Motor: Gait was deferred because patient felt unsteady walking. The strength is 5 over 5 throughout. Normal tone and bulk. There is no resting tremor or no spontaneous abnormal movements. Cerebellum: With a finger to nose bilaterally the patient the was inconsistent , she was ataxic but at times she was not ataxic and was very inconsistent that. But when I had her with her index finger touching my finger there is no ataxia that was appreciated the or may be minimal at most. While they heel to hammer was normal bilaterally. Sensation: Sensation is normal to touch throughout. Reflexes (right/left): 2+ throughout. Plantars are downgoing bilaterally. - Labs CBC & Chem 7: 08/26/20 09:03 08/26/20 09:03 Labs: Abnormal Lab Results - Last 24 Hours (Table) 08/25/20 08/25/20 08/25/20 Range/Units 10:52 15:44 16:46 Sodium (137-145) mmol/L Potassium (3.5-5.1) mmol/L Creatinine (0.52-1.04) mg/dL Glucose (74-99) mg/dL POC Glucose (mg/dL) 265 H (75-99) mg/dL Calcium (8.4-10.2) mg/dL Ionized Calcium Luis 4.1 L (4.5-5.3) mg/dL Vitamin B12 1164.0 H (200.0-944.0) pg/mL 08/25/20 08/26/20 08/26/20 Range/Units 20:52 09:03 12:12 Sodium 136 L (137-145) mmol/L Potassium 3.0 L (3.5-5.1) mmol/L Creatinine 0.47 L (0.52-1.04) mg/dL Glucose 118 H (74-99) mg/dL POC Glucose (mg/dL) 221 H 225 H (75-99) mg/dL Calcium 7.6 L (8.4-10.2) mg/dL Ionized Calcium Luis (4.5-5.3) mg/dL Vitamin B12 (200.0-944.0) pg/mL Microbiology - Last 24 Hours (Table) 08/23/20 12:39 Stool Culture - Preliminary Stool Assessment and Plan Assessment: 50-year-old woman with that presented to the emergency department on 08/22/2020 for complaint of nausea vomiting and diarrhea for the past 1 week. She is also having ataxia and unsteady walking for the past 8 days. Unsteady gait, ataxia: Unsure exact etiology. Episodes of metabolic derag nement/DKA/hypoglycemia can mimic stroke. From the patient physical exam at times was inconsistent with the ataxia. DKA--resolved Electrolyte imbalance (phosphorus, hypocalcemia) Episodes of hypoglycemia Diabetes mellitus Hypothyroidism History of thyroid nodule status post thyroidectomy Plan: MRI of the brain without gadolinium: Suboptimal study but no MRI evidence of recent infarct. Mild to minimal nonspecific white matter changes presumably on the basis of chronic of chronic small vessel ischemic changes. Chronic paranasal sinus disease redemonstrated. CTA of the head and neck was reported as no significant diameter reduction to account for the patient's symptoms. No significant abnormality. D cervical spine ordered by the primary team was reported as no evidence for acute fracture or subluxation of the cervical spine that. 2-D echo: Was reported as left ventricular size is normal. Left ventricle wall thickness is normal. Ejection fraction between 60-65%. lipid profile: Triglyceride 114, cholesterol 135, LDL 61, HDL 51. TSH: 0.786. hemoglobin A1c: 7.8. Started the patient on aspirin 300 mg rectal daily since the patient having the nausea vomiting. Once nausea vomiting is resolved we'll switch over to by mouth. Started the patient on the Lipitor 40 mg daily but if she can't tolerate it. Orthostatic vitals is pending once patient is more stable. Occupation therapy and physical therapy are on board. I ordered the ionized calcium, vitamin B12, folate, copper and zinc levels:pending. Recommend the MRI of the brain as well as MRI of the C-spine to rule out any lesions that's not seen on the initial MRI the brain. Rule out posterior cir culation stroke/cerebellar stroke and central pontine pontine myelinolysis. Recommend inpatient rehab consultation. The patient nurse was noted to have a watch role periodic exams to see the patient's consistency of her deficits. Regarding that electrolyte imbalance correction will defer management to the primary team. Recommend avoiding hypoglycemia episodes but will defer the management to the primary team. Regarding patient management of diabetes will defer to primary team. Plan was discussed with the primary team as well as the nurse. Luisito Allen M.D. Neuro-hospitalist Time with Patient: Less than 30
[2020-08-26 17:16] LABS: Glucose,Whole Blood 316 mg/dL (75-99)
[2020-08-26 19:48] LABS: Glucose,Whole Blood 254 mg/dL (75-99)
--- NOTE | 2020-08-26 20:09 | P.PN ---
Subjective Progress Note Date: 08/26/20 (delayed charting seen at 1030) Principal diagnosis: DKA Patient is a 50-year-old female with a history of diabetes mellitus, atopic dermatitis, and hypothyroidism after thyroidectomy secondary to nodules who initially presented to the emergency room with nausea, vomiting, and diarrhea. She was subsequently found to have DKA. She was placed on the DKA Protocol and then was transitioned to short and long acting insulin. She developed severe ataxia during her hospital stay. Initial MRI, CT head, CT cervical spine, and labs negative for pathology. Repeat MRI ordered with concerns for mild central pontine myelinolysis. Patient seen and examined at bedside. She reports that she is still having some intermittent nausea and vomiting. Still having some ataxia. No diarrhea. When I entered the room she was on the phone. She fumbled with the phone and had a difficult time turning the phone off. General: non toxic, no distress, appears at stated age Derm: warm, dry Head: atraumatic, normocephalic, symmetric Eyes: EOMI, no lid lag, anicteric sclera Mouth: no lip lesion, mucus membranes moist Cardiovascular: S1S2 reg, no murmur, positive posterior tibial pulse bilateral, Lungs: CTA bilateral, no rhonchi, no rales , no accessory muscle use Abdominal: soft, nontender to palpation, no guarding, no appreciable organomegaly Ext: no gross muscle atrophy, no edema, no contractures Neuro: CN II-XI grossly intact, when asked to do [id number] with her eyes closed she continually hits her self in the eye with her finger, and appears to have some muscle weakness and attempting to touch her face. On the right side she is able to do finger to nose without difficulty. However on the left side she is unable to touch my finger. [id number] is intact bilateral. Psych: Alert, oriented, flat affect Ataxia, concern for central pontine myelinolysis -Case discussed with neurology in detail. We'll proceed with MRI of the brain in a.m. as findings can be delayed with central pontine myelin lysis up to 4 weeks. -I'll also consult PMNR regarding other causes and need for rehabilitation area - PT/OT -MRI of the brain shows no recent infarct, but was a suboptimal study, and mild to minimal nonspecific white matter ischemic changes. Echocardiogram with ejection fraction 60-65% and no significant valvular disease -CT of the head and neck showed no significant diameter reduction to help the patient's symptoms -CT head without contrast showed age-related atrophic and small vessel ischemic changes -CT of the neck demonstrated no evidence of acute fracture or subluxation Gastroenteritis -GI recommendations appreciated: No plan for scope at this point in time -Supportive care with antiemetics, and Bentyl -C. diff negative, stool culture negative -Rapid COVID 19 negative -Supportive care -If not resolved soon possible repeat CT abdomen and pelvis Diabetes mellitus type 2 - A1c 7.5 - change levemir to 15 units at night - SSI - follow BS Large right renal cyst -Status post IR drainage, plan is to follow-up with urology as outpatient Multiple hypoechoic liver lesions suspect for hemangioma -Possible MRI as outpatient for further evaluation Chronic: Hypertension Hypothyroidism DKA, resolved DVT prophylaxis: SCDs Discussed with: patient, neurology Anticipated discharge: 2-[address]: A total of [] minutes was spent on the care of this complex patient more than 50% of the time was spent in counseling and care coordination. Objective - Vital Signs Vital signs: Vital Signs Temp 98.4 F 08/26/20 08:00 Pulse 74 08/26/20 16:00 Resp 16 08/26/20 16:00 BP 152/77 08/26/20 16:00 Pulse Ox 94 L 08/26/20 16:00 Intake & Output 08/26/20 08/26/20 08/27/20 06:59 18:59 06:59 Intake Total 120 Output Total 350 Balance 120 -350 Weight 59.5 kg Intake: Oral 120 Output: Urine 350 Other: Voiding Method Bedpan # Voids 1 1 1 - Labs CBC & Chem 7: 08/26/20 09:03 08/26/20 09:03 Labs: Abnormal Lab Results - Last 24 Hours (Table) 08/25/20 08/26/20 08/26/20 Range/Units 20:52 09:03 12:12 Sodium 136 L (137-145) mmol/L Potassium 3.0 L (3.5-5.1) mmol/L Creatinine 0.47 L (0.52-1.04) mg/dL Glucose 118 H (74-99) mg/dL POC Glucose (mg/dL) 221 H 225 H (75-99) mg/dL Calcium 7.6 L (8.4-10.2) mg/dL 08/26/20 Range/Units 17:11 Sodium (137-145) mmol/L Potassium (3.5-5.1) mmol/L Creatinine (0.52-1.04) mg/dL Glucose (74-99) mg/dL POC Glucose (mg/dL) 316 H (75-99) mg/dL Calcium (8.4-10.2) mg/dL Microbiology - Last 24 Hours (Table) 08/23/20 12:39 Stool Culture - Final Stool
[2020-08-26] MEDS ORDERED: INSULIN DETEMIR (LEVEMIR) 100 UNIT/ML SYR SQ SCH (21:00)
[2020-08-27 06:51] LABS: Glucose,Whole Blood 52 mg/dL (75-99)
[2020-08-27] MEDS: INSULIN ASPART (NovoLOG) 100 UNIT/ML VIAL SQ SCH ×4 (06:55→20:26)
[2020-08-27] MEDS: PANTOPRAZOLE 40 MG TABLET PO SCH ×2 (06:55→17:24)
[2020-08-27] MEDS: LEVOTHYROXINE 75 MCG TAB PO SCH (06:55)
[2020-08-27 07:06] LABS: Glucose,Whole Blood 102 mg/dL (75-99)
--- NOTE | 2020-08-27 08:10 | P.CONS ---
History of Present Illness - Chief Complaint medical debility - History of Present Illness I had the opportunity to see patient for inpatient rehab consultation with regard to medical debility. She was admitted to [facility] August 22 with nausea, emesis, diarrhea, DKA. Seen by Dr. León for possible GI cause. Seen by Dr. Luisito Allen who diagnosed encephalopathy. Abdominal CT demonstrates large renal cyst as well as left base atelectasis. Brain MRI nonspecific white matter change. Angiogram CT negative. Also negative CT of the head print his age change and C-spine. Seen by therapies. PT reports moderate assistance for bed mobility and transfers. Unable take steps. OT reports minimal assistance for upper dressing and maximal assistance for lower dressing and bathing and moderate assistance for toileting and transfers. Speech therapy prescribed. Previous functional history as elicited from patient: 50-year-old right-handed white female who is single/ lives in basement apartment alone. 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 PMD Dr. Camacho. Family history mother with cancer. Review of Systems Review of systems: ENT: Denies sneezes or discharge. Eyes: Denies discharge or photophobia. Cardiac: Denies chest pain or palpitation. Pulmonary: Denies cough or shortness of breath. Breast: Denies discharge or lumps. Gastrointestinal: Abdominal discomfort improving. Genitourinary: Denies discharge or frequency. Musculoskeletal: Denies muscle or bone aches. Neurologic: Confusion and generalized weakness. Endocrine: Denies shakes or sweats. Oncology: Denies cancers. Dermatologic: Denies rash, itching, pruritus. ALLERGY/immunology: Denies sneezes, rashes. Past Medical History Past Medical History: Diabetes Mellitus, Thyroid Disorder Additional Past Medical History / Comment(s): Atopic DERMATITIS. HX THYROIDECTOMY D/T NODULES. uterine fibriods, heavy irregular menstrual periods History of Any Multi-Drug Resistant Organisms: None Reported Past Surgical History: Section, Tubal Ligation Additional Past Surgical History / Comment(s): THYROIDECTOMY. Past Anesthesia/Blood Transfusion Reactions: No Reported Reaction Past Psychological History: No Psychological Hx Reported Smoking Status: Current every day smoker Past Alcohol Use History: Occasional Additional Past Alcohol Use History / Comment(s): SMOKED AGE [age] YEARS OLD, BEGAN AGAIN 2011, / PPD. Past Drug Use History: None Reported - Past Family History Mother Family Medical History: Cancer Additional Family Medical History / Comment(s): brain. DM runs in the family Medications and Allergies Home Medications Medication Instructions Recorded Confirmed Type INSULIN ASPART (NovoLOG) [NovoLOG See Protocol SQ AC-TID 03/02/14 08/22/20 History (formulary)] Insulin Degludec [Tresiba 18 unit SQ QAM 06/18/17 08/22/20 History Flextouch U-100] Levothyroxine Sodium [Synthroid] 150 mcg PO DAILY 06/21/17 08/22/20 History Acetaminophen-Codeine 300-30mg 1 tab PO Q6H PRN 3 Days #12 tablet 08/16/20 08/22/20 Rx [Tylenol w/codeine #3] lisinopriL [Zestril] 5 mg PO DAILY 08/16/20 08/22/20 History Ondansetron HCl [Zofran] 4 mg PO Q8H PRN #30 tab 08/21/20 08/22/20 Rx Allergies Allergy/AdvReac Type Severity Reaction Status Date / Time No Known Allergies Allergy Verified 08/22/20 12:44 Physical Exam Vitals: Vital Signs Temp Pulse Resp BP Pulse Ox 08/27/20 04:00 98.2 F 64 18 168/84 94 L 08/26/20 23:58 98.0 F 65 17 147/78 97 08/26/20 20:00 97.7 F 71 19 147/80 96 08/26/20 16:00 74 16 152/77 94 L 08/26/20 12:00 74 20 164/84 94 L Intake and Output 08/26/20 08/27/20 08/27/20 22:59 06:59 14:59 Intake Total 120 Output Total 350 500 Balance -230 -500 Intake: Oral 120 Output: Urine 350 500 Other: Voiding Method Bedpan Bedpan # Voids 1 1 Weight 57.5 kg Skin: Good color, texture, turgor. General: Medium build and comfortable appearance. Head: Normocephalic, atraumatic. Eyes: Symmetric. Pupils equal round. Ears: Symmetric. Hearing within normal limits. Mouth: Clear. Neck: Supple. Carotid without bruit. Cardiac: Regular rate and rhythm. Lungs: Clear anteriorly and posteriorly. Abdomen: Soft active nontender. Extremities: Normal tone. Neurological: Mental status: Alert, cooperative, pleasant. Cranial nerves: Symmetric facial tone and trapezius. Motor: Active movement throughout but less than antigravity, especially legs. Sensation: Intact throughout. DTRs: Symmetric and equal throughout. Mobility: Patient initially seen lying prone on floor required assistance of myself and 2 nurses to get back up into bed. Results CBC & Chem 7: 08/26/20 09:03 08/26/20 09:03 Labs: Abnormal Lab Results - Last 24 Hours (Table) 08/26/20 08/26/20 08/26/20 Range/Units 09:03 12:12 17:11 Sodium 136 L (137-145) mmol/L Potassium 3.0 L (3.5-5.1) mmol/L Creatinine 0.47 L (0.52-1.04) mg/dL Glucose 118 H (74-99) mg/dL POC Glucose (mg/dL) 225 H 316 H (75-99) mg/dL Calcium 7.6 L (8.4-10.2) mg/dL 08/26/20 08/27/20 08/27/20 Range/Units 19:45 06:50 07:04 Sodium (137-145) mmol/L Potassium (3.5-5.1) mmol/L Creatinine (0.52-1.04) mg/dL Glucose (74-99) mg/dL POC Glucose (mg/dL) 254 H 52 L 102 H (75-99) mg/dL Calcium (8.4-10.2) mg/dL Microbiology - Last 24 Hours (Table) 08/23/20 12:39 Stool Culture - Final Stool Assessment and Plan (1) DKA (diabetic ketoacidoses) Current Visit: Yes Status: Acute Code(s): E11.10 - TYPE 2 DIABETES MELLITUS WITH KETOACIDOSIS WITHOUT COMA SNOMED Code(s): 536652214 Plan: Impression: 1. Medical debility. 2. Diabetic ketoacidosis with nausea, emesis, diarrhea and hypokalemia. 3. Hypothyroid. Comments and plan: At this time PT and OT are ongoing. Patient definitely weak and not currently ready for inpatient rehab. We'll review case Sunday a.m.
[2020-08-27] MEDS: HEPARIN SODIUM,PORCINE 5,000 UNIT/ML 1 ML VIAL SQ SCH ×2 (09:07→20:26)
[2020-08-27] MEDS: ASPIRIN 81 MG PO SCH (09:07)
[2020-08-27] MEDS: ATORVASTATIN 40 MG TAB PO SCH (09:07)
[2020-08-27] MEDS: lisinopriL 5 MG TAB PO SCH (09:07)
[2020-08-27 10:17] LABS: Glucose,Whole Blood 172 mg/dL (75-99)
--- NOTE | 2020-08-27 11:27 | P.PN ---
Subjective Progress Note Date: 08/27/20 Patient was seen at bedside and she stated that she's not doing any better today compared to yesterday. She stated that the she was having breakfast earlier and tried that, sit up and all of a sudden the feel on the floor. She denies of any new type of headaches. Denies Any injury to the head. She was found prone on the floor by Dr. Sinclair and required 2 nurses wet process assistant head miller. She continues to feel unsteady walk-in. Also she still continues to feel the ataxic of the upper extremities. She said she has blurry vision and over the both eyes and it's mostly the left eye. She also has diplopia over both eyes and was a lateral diplopia. She continues to feel numb throughout her whole body. She continues to feel nauseous but no further episodes of vomiting or diarrhea. She feels like she is a having a difficult difficulty with getting getting her words out and she slurring in her speech and this is not the way she talks. These presentation and has been going on she said the about 6-7 days prior to present to the hospital. Patient had an episode of by mouth glucose of 52 around the 6:45 at 08/27/2020. Otherwise her sugars was ranging in the 100-300. Patient calcium is 7.6 and ionized calcium is 4.1 which is a low. Patient repeated phosphorus 2.6 and magnesium is 1.7. Objective - Vital Signs Vital signs: Vital Signs Temp 98.2 F 08/27/20 04:00 Pulse 92 08/27/20 08:10 Resp 17 08/27/20 08:10 BP 183/91 08/27/20 08:10 Pulse Ox 94 L 08/27/20 08:10 Intake & Output 08/26/20 08/27/20 08/27/20 18:59 06:59 18:59 Intake Total 120 90 Output Total 850 200 Balance 120 -850 -110 Weight 57.5 kg Intake: Oral 120 90 Output: Urine 850 200 Other: Voiding Method Bedpan # Voids 1 1 - Exam GENERAL: The patient is lying in bed and is in mild acute distress. NEUROLOGICAL: Higher mental function: The patient is awake, alert, oriented to self, place and time. Patient is following commands. No aphasia and no neglect. Cranial nerves: The pupils are round, equal and reactive to light and accommodation. Visual somemr are full to confrontation throughout. Extraocular movement is intact no nystagmus is noted. Facial sensation is normal to touch throughout. The facial strength is normal throughout. Hearing is normal bilaterally to hand rub. Tongue is midline and moved [id number] without any difficulty. No dysarthria noted. Shoulder shrug is normal bilaterally. Motor: Gait was deferred because patient felt unsteady walking. The strength is 5-/5 over the left upper extremity. Otherwise is 5 over 5 throughout. Normal tone and bulk. There is no resting tremor or no spontaneous abnormal movement s. Cerebellum: With a finger to chin bilaterally the patient the was ataxiac but at times it was inconsistent . Also ataxiac with finger to finger is ataxiac but not as drastic compared finger to nose. Heel to hammer is normal bilaterally. Sensation: Sensation is normal to touch throughout. Reflexes (right/left): 2+ throughout. Plantars are downgoing bilaterally. - Labs CBC & Chem 7: 08/27/20 11:53 08/27/20 11:53 Labs: Abnormal Lab Results - Last 24 Hours (Table) 08/26/20 08/26/20 08/26/20 Range/Units 12:12 17:11 19:45 POC Glucose (mg/dL) 225 H 316 H 254 H (75-99) mg/dL 08/27/20 08/27/20 08/27/20 Range/Units 06:50 07:04 10:13 POC Glucose (mg/dL) 52 L 102 H 172 H (75-99) mg/dL Microbiology - Last 24 Hours (Table) 08/23/20 12:39 Stool Culture - Final Stool Assessment and Plan Assessment: 50-year-old woman with that presented to the emergency department on 08/22/2020 for complaint of nausea vomiting and diarrhea for the past 1 week. She is also having ataxia, unsteady walking for the past one week prior to presentation. Also complaining of diplopia out of both eyes, feels she is slurring speech and difficulty getting her words out, sensation throughout body is off for past one week. Unsteady gait, ataxia Unsure exact etiology. Episodes of metabolic deragnement/DKA/hypoglycemia/ electrolyte imbalance (hypocalcemia, brittle diabetes) can mimic stroke. Brittle diabetes Hypocalcemia DKA--resolved Electrolyte imbalance (phosphorus, hypocalcemia) Episodes of hypoglycemia Hypothyroidism History of thyroid nodule status post thyroidectomy Plan: MRI of the brain without gadolinium: Suboptimal study but no MRI evidence of recent infarct. Mild to minimal nonspecific white matter changes presumably on the basis of chronic of chronic small vessel ischemic changes. Chronic paranasal sinus disease redemonstrated. CTA of the head and neck was reported as no significant diameter reduction to account for the patient's symptoms. No significant abnormality. D cervical spine ordered by the primary team was reported as no evidence for acute fracture or subluxation of the cervical spine that. 2-D echo: Was reported as left ventricular size is normal. Left ventricle wall thickness is normal. Ejection fraction between 60-65%. lipid profile: Triglyceride 114, cholesterol 135, LDL 61, HDL 51. TSH: 0.786. hemoglobin A1c: 7.8. Started the patient on aspirin 300 mg rectal daily since the patient having the nausea vomiting. Once nausea vomiting is resolved we'll switch over to by mouth. Started the patient on the Lipitor 40 mg daily. Orthostatic vitals is pending once patient is more stable. Occupation therapy and physical therapy are on board. vitamin B12: 1164 which is normal. Folate, copper and zinc levels:pending. Recommend the MRI of the brain as well as MRI of the C-spine to rule out any lesions that's not seen on the initial MRI the brain. Rule out posterior circulation stroke/cerebellar stroke. If MRI are normal recommend getting Lumbar puncture. Inpatient rehab is on board. Regarding that electrolyte imbalance correction will defer management to the primary team. Recommend avoiding hypoglycemia episodes but will defer the management to the primary team. Regarding patient management of diabetes will defer to primary team. Plan was discussed with the primary team. Luisito Allen M.D. Neuro-hospitalist Time with Patient: Less than 30
[2020-08-27 12:08] LABS: Glucose,Whole Blood 175 mg/dL (75-99)
[2020-08-27 12:32] LABS: HCT 39.8 % (34.0-46.0); HGB 14.2 gm/dL (11.4-16.0); MCH 30.8 pg (25.0-35.0); MCHC 35.7 g/dL (31.0-37.0); MCV 86.3 fL (80.0-100.0); Mean Platelet Volume 7.4; Platelet Count 248 k/uL (150-450); RBC 4.61 m/uL (3.80-5.40); RDW 13.3 % (11.5-15.5); WBC 9.5 k/uL (3.8-10.6)
[2020-08-27 12:43] LABS: African American GFR (CKD) >90 (>60 ml/min/1.73 sqM); Anion Gap 4 mmol/L; Blood Urea Nitrogen 11 mg/dL (7-17); Carbon Dioxide 36 mmol/L (22-30); Chloride 92 mmol/L (98-107); Glucose 189 mg/dL (74-99); Magnesium 1.5 mg/dL (1.6-2.3); Non-African American GFR(CKD) >90 (>60 ml/min/1.73 sqM); Phosphorus 3.5 mg/dL (2.5-4.5); Potassium 3.2 mmol/L (3.5-5.1); Sodium 132 mmol/L (137-145)
--- NOTE | 2020-08-27 13:56 | MR ---
EXAMINATION TYPE: MR brain/cspine wo/w DATE OF EXAM: 08/27/2020 COMPARISON: 08/24/2020 HISTORY: ataxia, Rule out cereballar, central pontine CONTRAST: Performed utilizing 5.5 mL intravenous Gadavist gadolinium contrast. TECHNIQUE: Multiplanar, multiecho imaging on a 3.0 Letty magnet is performed through the brain. Stud y is performed within 24 hours of arrival to the hospital. The craniovertebral junction is normal. The pituitary is normal. Diffusion-weighted imaging is performed. No abnormal hyperintensity is present to suggest an acute i ntracranial infarct or acute ischemic change. There are scattered punctate areas of hyperintensity on T2 and Inversion Recovery weighted sequences which are non-specific but can be related to microvascular ischemic changes. Ventricles and sulci are appropriate for the patient age. Following contrast, no abnormal enhancement is evident. IMPRESSIONS: 1. Normal MRI brain. 2. No suspicious cerebellar or central pontine abnormality. EXAMINATION TYPE: MR brain/cspine wo/w DATE OF EXAM: 08/27/2020 COMPARISON: None HISTORY: ataxia, Rule out cereballar, central pontine CONTRAST: Performed utilizing 5.5 mL intravenous Gadavist gadolinium contrast. TECHNIQUE: Multiplanar multiecho imaging on a 3.0 Letty magnet is performed through the cervical spin e. FINDINGS: The craniovertebral junction is normal. Vertebral body alignment is normal. No focal disc herniation or significant disc bulge is evident. No spinal canal stenosis or foraminal stenosis present. Disc heights are preserved. Mild diffuse disc desiccation is present. Vertebral bod y heights are preserved. Following contrast, no abnormal enhancement is evident. IMPRESSIONS: 1. Essentially normal MRI cervical spine
[2020-08-27] MEDS ORDERED: POTASSIUM CHLORIDE ER 20 MEQ TAB.ER PO STA (14:01)
[2020-08-27] MEDS ORDERED: POTASSIUM CHLORIDE 20 MEQ in WATER FOR INJECTION 1 100ML.BAG IVPB STA (14:01)
[2020-08-27] MEDS: MAGNESIUM SULFATE-D5W PMX 1 GM in DEXTROSE/WATER 1 100ML.BAG IVPB SCH ×4 (14:21→21:26)
--- NOTE | 2020-08-27 16:13 | P.DS ---
Providers Date of admission: 08/22/20 13:55 Expected date of discharge: 08/27/20 Attending physician: Sky Barber Consults: 08/24/20 01:53 Consult Physician Urgent Consulting Provider: Luisito Allen Consult Reason/Comments: Ataxia, kristal weakness Do you want consulting provider notified?: Yes 08/26/20 11:28 Consult Physician Routine Consulting Provider: Jeremi Sinclair Consult Reason/Comments: rehab eval for ataxia Do you want consulting provider notified?: Yes, Notify in am Primary care physician: [facility] [place] Course: Discharge Diagnosis: Ataxia, undetermined etiology, stroke ruled out. Copper Level 936, Zinc 77 (reported just prior to transfer) Gastroenteritis Diabetes mellitus type 2 Large right renal cyst Multiple hypoechoic liver lesions suspect for hemangioma Hypertension Hypothyroidism DKA, resolved Hospital Course: This is a 50-year-old female with past medical history noted below who presented to the emergency room with persistent nausea, vomiting, and diarrhea. She had been hospitalized here from 08/18 through 08/21 for large right renal cyst which was drained by interventional radiology with severe nausea vomiting and diarrhea suspected to be due to acute viral gastroenteritis. A code 19 antigen test was run at that point in time and was negative. Her nausea vomiting and diarrhea improved with symptomatic management. She was discharged home in stable condition. She generally presented on 08/22 with nausea, vomiting, and diarrhea. At that point in time she was found to be in mild DKA. She was started on DKA protocol was transitioned off on 08/23. Overnight on 08/23 than arthritis was called secondary to ataxia and neurology consult was ordered. Patient was seen by neurology. She underwent an MRI of the brain without gadolinium which was suboptimal study but demonstrated no recent infarct and mild to minimal nonspecific white matter changes presumably on the basis of chronic small vessel ischemic changes, CTA of the head and neck showed no significant diameter reduction to account for symptom, CT cervical spine showed no evidence for acute fracture or subluxation of the for cervical spine, she underwent a 2-D echocardiogram which showed a normal ejection fraction of 60- 65%. Her TSH was normal, hemoglobin A1c 7.8. She continued to have issues with ataxia which were unresolving. She was noted to have hypophosphatemia and hypocalcemia which were corrected. She did continue to have some intermittent episodes of hypoglycemia during her hospital stay and insulin was adjusted. Patient has a history of being a very brittle diabetic. Vitamin B12 came back at 1164. Folate, copper, and zinc levels are pending. Inpatient rehab was consulted on the morning of 08/27 and arrived to the patient's room to find her lying on the floor. Patient states this happened when she was trying to scoot herself up in bed. She denied any changes in pain. A repeat MRI of the brain with and without contrast was completed on 08/27 which was normal and had no suspicious cerebellar central pontine abnormality. A MRI of the cervical spine was completed which again showed no abnormality to account for her symptoms. Case was again discussed with neurology at length and they recommended transfer to a tertiary care center for further evaluation of her ataxia. Electrolytes on the day of discharge had a potassium of 3.2 and a magnesium of 1.5 both of which were replaced. She had had an episode of hypoglycemia at approximately 6:45 AM with a blood sugar of 52 which corrected with oral intake. Case was discussed with [facility] who graciously accepted her transfer. Accepting physician is Dr. Marquise Dong. Currently await insurance auth for transfer. She had a COVID PCR test completed on 08/25 which is pending at the time of transfer. Patient seen and examined at bedside. She continues to state that she is having difficulty controlling her upper extremities, difficulty using her cell phone and feeding herself. She also is reporting blurry vision in her left eye with some double vision which is vertical in nature and intermittent. She denies any specific weakness but does state she feels weak all over. Still having some intermittent nausea but no vomiting noted by nursing. She denies any current diarrhea. Of note patient today is complaining of numbness and tingling throughout her body and her face, she had no complaints of this today prior but does state it has been there for several days. Vital signs reviewed and stable. General: non toxic, no distress, appears at stated age Derm: warm, dry Head: atraumatic, normocephalic, symmetric Eyes: EOMI, no lid lag, anicteric sclera Mouth: no lip lesion, mucus membranes moist Cardiovascular: S1S2 reg, no murmur, positive posterior tibial pulse bilateral, Lungs: CTA bilateral, no rhonchi, no rales , no accessory muscle use Abdominal: soft, nontender to palpation, no guarding, no appreciable organomegaly Ext: no gross muscle atrophy, no edema, no contractures Neuro: CN II-XI grossly intact, finger to nose poor on both sides, finger tracking off bilaterally, [id number] intact, muscle strength in left upper extremity 4 out of 5 and 5 out of 5 in right upper extremity, muscle strength equal and intact in bilateral lower extremities Psych: Alert, oriented, appropriate affect A total of 35 minutes of time were spent preparing this complex discharge summary .` Patient Condition at Discharge: Stable Plan - Discharge Summary Discharge Rx Participant: No New Discharge Prescriptions: No Action INSULIN ASPART (NovoLOG) [NovoLOG (formulary)] See Protocol SQ AC-TID Insulin Degludec [Tresiba Flextouch U-100] 18 unit SQ QAM Levothyroxine Sodium [Synthroid] 150 mcg PO DAILY lisinopriL [Zestril] 5 mg PO DAILY Acetaminophen-Codeine 300-30mg [Tylenol w/codeine #3] 1 tab PO Q6H PRN 3 Days #12 tablet PRN Reason: Pain Ondansetron HCl [Zofran] 4 mg PO Q8H PRN #30 tab PRN Reason: Nausea And Vomiting Discharge Medication List INSULIN ASPART (NovoLOG) [NovoLOG (formulary)] See Protocol SQ AC-TID 03/02/14 [History] Insulin Degludec [Tresiba Flextouch U-100] 18 unit SQ QAM 06/18/17 [History] Levothyroxine Sodium [Synthroid] 150 mcg PO DAILY 06/21/17 [History] Acetaminophen-Codeine 300-30mg [Tylenol w/codeine #3] 1 tab PO Q6H PRN 3 Days #12 tablet 08/16/20 [Rx] lisinopriL [Zestril] 5 mg PO DAILY 08/16/20 [History] Ondansetron HCl [Zofran] 4 mg PO Q8H PRN #30 tab 08/21/20 [Rx] Follow up Appointment(s)/Referral(s): Helen Villatoro MD [Primary Care Provider] - 1-2 days
[2020-08-27 17:01] LABS: Glucose,Whole Blood 287 mg/dL (75-99)
[2020-08-27 20:04] LABS: Glucose,Whole Blood 157 mg/dL (75-99)
[2020-08-27] MEDS: INSULIN DETEMIR (LEVEMIR) 100 UNIT/ML SYR SQ SCH (20:26)
[2020-08-28 06:30] LABS: Glucose,Whole Blood 240 mg/dL (75-99)
[2020-08-28] MEDS: LEVOTHYROXINE 75 MCG TAB PO SCH (06:42)
[2020-08-28] MEDS: INSULIN ASPART (NovoLOG) 100 UNIT/ML VIAL SQ SCH ×4 (06:42→20:50)
[2020-08-28] MEDS: PANTOPRAZOLE 40 MG TABLET PO SCH ×2 (06:42→17:51)
[2020-08-28] MEDS: HEPARIN SODIUM,PORCINE 5,000 UNIT/ML 1 ML VIAL SQ SCH ×2 (08:50→20:50)
[2020-08-28] MEDS: lisinopriL 5 MG TAB PO SCH (08:50)
[2020-08-28] MEDS: ASPIRIN 81 MG PO SCH (08:50)
[2020-08-28] MEDS: ATORVASTATIN 40 MG TAB PO SCH (08:50)
[2020-08-28 09:41] LABS: HCT 41.8 % (34.0-46.0); HGB 14.8 gm/dL (11.4-16.0); MCH 30.6 pg (25.0-35.0); MCHC 35.4 g/dL (31.0-37.0); MCV 86.5 fL (80.0-100.0); Mean Platelet Volume 7.7; Platelet Count 288 k/uL (150-450); RBC 4.83 m/uL (3.80-5.40); RDW 13.2 % (11.5-15.5); WBC 8.5 k/uL (3.8-10.6)
[2020-08-28 09:44] LABS: ALT 25 U/L (4-34); AST 26 U/L (14-36); African American GFR (CKD) >90 (>60 ml/min/1.73 sqM); Albumin 3.3 g/dL (3.5-5.0); Alkaline Phosphatase 71 U/L (38-126); Anion Gap 6 mmol/L; Blood Urea Nitrogen 15 mg/dL (7-17); Calcium 8.3 mg/dL (8.4-10.2); Carbon Dioxide 34 mmol/L (22-30); Chloride 93 mmol/L (98-107); Glucose 151 mg/dL (74-99); Non-African American GFR(CKD) >90 (>60 ml/min/1.73 sqM); Phosphorus 4.1 mg/dL (2.5-4.5); Potassium 3.4 mmol/L (3.5-5.1); Sodium 133 mmol/L (137-145); Total Bilirubin 0.7 mg/dL (0.2-1.3); Total Protein 5.5 g/dL (6.3-8.2)
[2020-08-28 11:54] LABS: Glucose,Whole Blood 207 mg/dL (75-99)
[2020-08-28] MEDS ORDERED: POTASSIUM CHLORIDE ER 20 MEQ TAB.ER PO STA (13:16)
--- NOTE | 2020-08-28 16:17 | P.PN ---
Subjective Progress Note Date: 08/28/20 Principal diagnosis: DKA This is a 50-year-old female with past medical history noted below who presented to the emergency room with persistent nausea, vomiting, and diarrhea. She had been hospitalized here from 08/18 through 08/21 for large right renal cyst which was drained by interventional radiology with severe nausea vomiting and diarrhea suspected to be due to acute viral gastroenteritis. A COVID-19 antigen test was run at that point in time and was negative. Her nausea vomiting and diarrhea improved with symptomatic management. She was discharged home in stable c ondition. She again presented on 08/22 with nausea, vomiting, and diarrhea. At that point in time she was found to be in mild DKA with a bicarb of 13 and anion gap of 14. She was started on DKA protocol was transitioned off on 08/23. Overnight on 08/23 the button tufter was called secondary to ataxia and neurology consult was ordered. Patient was seen by neurology. She underwent an MRI of the brain without gadolinium which was suboptimal study but demonstrated no recent infarct and mild to minimal nonspecific white matter changes presumably on the basis of chronic small vessel ischemic changes, CTA of the head and neck showed no significant diameter reduction to account for symptom, CT cervical spine showed no evidence for acute fracture or subluxation of the for cervical spine, she underwent a 2-D echocardiogram which showed a normal ejection fraction of 60-65%. Her TSH was normal, hemoglobin A1c 7.8. She continued to have issues with ataxia which were unresolving. She was unable to stand or get out of the bed to use the bedside commode. Her symptoms were so debilitating that she required the bed benitez only. All movements resulted in nausea. She was noted to have hypophosphatemia and hypocalcemia which were corrected. She did continue to have some intermittent episodes of hypoglycemia during her hospital stay and insulin was adjusted. Patient has a history of being a very brittle diabetic. Vitamin B12 came back at 1164. Folate, copper, and zinc levels were normal. Inpatient rehab was consulted on the morning of 08/27 and arrived to the patient's room to find her lying on the floor. Patient states this happened when she was trying to scoot herself up in bed. She denied any changes in pain. A repeat MRI of the brain with and without contrast was completed on 08/27 which was normal and had no suspicious cerebellar central pontine abnormality. A MRI of the cervical spine was completed which again showed no abnormality to account for her symptoms. Case was again discussed with neurology at length and they recommended transfer to a tertiary care center for further evaluation of her ataxia. Electrolytes on 08/27 showed a potassium of 3.2 and a magnesium of 1.5 both of which were replaced. She had had an episode of hypoglycemia at approximately 6:45 AM with a blood sugar of 52 which corrected with oral intake. Case was discussed with [facility] who graciously accepted her transfer. Accepting physician is Dr. Marquise Dong. Currently await insurance auth for transfer. Patient seen and examined at bedside. She continues to struggle completing simple task such a eating, and using her phone. She reports nausea that is mostly when trying to move. She states that her legs are more numb today. She reports feeling foggy and having difficulty concentrating. General: non toxic, no distress, appears at stated age, temporal wasting Derm: warm, dry Head: atraumatic, normocephalic, symmetric Eyes: EOMI, no lid lag, anicteric sclera Mouth: no lip lesion, mucus membranes moist Cardiovascular: S1S2 reg, no murmur, positive posterior tibial pulse bilateral, Lungs: CTA bilateral, no rhonchi, no rales , no accessory muscle use Abdominal: soft, nontender to palpation, no guarding, no appreciable organomegaly Ext: no gross muscle atrophy, no edema, no contractures Neuro: CN II-XI grossly intact, no fasiculations, no tremors, still struggeling with phone. Reports that she is having to much nasusea to move. Psych: Alert, oriented, flat affect Ataxia with numbess/tingling/ and intermittent double vision - Still unable to stand or move independently. - central pontine myelinolysis less like with normal repeat MRI of the Brain - Concern for less common disease process such as [place] variant of Gullian [place], unmasking of ALS, or other movement disorder - [facility] has accepted the patient for further neurologic evaluation pending insurance authorization -PRNR consulted will follow patient, concerned about level of weakness. - PT/OT -Repear MRI of the brain and MR C-spince again without definitive abnormality -MRI of the brain shows no recent infarct, but was a suboptimal study, and mild to minimal nonspecific white matter ischemic changes. Echocardiogram with ejection fraction 60-65% and no significant valvular disease -CT of the head and neck showed no significant diameter reduction to help the p atient's symptoms -CT head without contrast showed age-related atrophic and small vessel ischemic changes -CT of the neck demonstrated no evidence of acute fracture or subluxation Diabetes mellitus type 2 - A1c 7.5 - levemir to 15 units at night - SSI - follow BS Large right renal cyst -Status post IR drainage, plan is to follow-up with urology as outpatient Multiple hypoechoic liver lesions suspect for hemangioma -Possible MRI as outpatient for further evaluation Gastroenteritis, resolved -GI recommendations appreciated: No plan for scope at this point in time -Supportive care with antiemetics, and Bentyl -C. diff negative, stool culture negative -Rapid COVID 19 negative -Supportive care Chronic: Hypertension Hypothyroidism DKA, resolved DVT prophylaxis: SCDs Discussed with: patient, nursing Anticipated discharge: Sunday to Anticipated discharge place: [facility] A total of 35 minutes was spent on the care of this complex patient more than 50% of the time was spent in counseling and care coordination. Objective - Vital Signs Vital signs: Vital Signs Temp 98.2 F 08/28/20 12:00 Pulse 70 08/28/20 14:00 Resp 16 08/28/20 14:00 BP 133/70 08/28/20 12:00 Pulse Ox 96 08/28/20 12:00 Intake & Output 08/27/20 08/28/20 08/28/20 18:59 06:59 18:59 Intake Total 330 240 245 Output Total 500 850 400 Balance -170 -610 -155 Weight 57.5 kg Intake: Oral 330 240 245 Output: Urine 500 850 400 Other: Voiding Method Bedpan # Voids 1 1 - Labs CBC & Chem 7: 08/28/20 08:49 08/28/20 08:49 Labs: Abnormal Lab Results - Last 24 Hours (Table) 08/27/20 08/27/20 08/28/20 Range/Units 16:59 20:03 06:27 Sodium (137-145) mmol/L Potassium (3.5-5.1) mmol/L Chloride (98-107) mmol/L Carbon Dioxide (22-30) mmol/L Creatinine (0.52-1.04) mg/dL Glucose (74-99) mg/dL POC Glucose (mg/dL) 287 H 157 H 240 H (75-99) mg/dL Calcium (8.4-10.2) mg/dL Total Protein (6.3-8.2) g/dL Albumin (3.5-5.0) g/dL 08/28/20 08/28/20 Range/Units 08:49 11:53 Sodium 133 L (137-145) mmol/L Potassium 3.4 L (3.5-5.1) mmol/L Chloride 93 L (98-107) mmol/L Carbon Dioxide 34 H (22-30) mmol/L Creatinine 0.49 L (0.52-1.04) mg/dL Glucose 151 H (74-99) mg/dL POC Glucose (mg/dL) 207 H (75-99) mg/dL Calcium 8.3 L (8.4-10.2) mg/dL Total Protein 5.5 L (6.3-8.2) g/dL Albumin 3.3 L (3.5-5.0) g/dL Microbiology - Last 24 Hours (Table) 08/23/20 12:39 Stool Culture - Final Stool
[2020-08-28 16:52] LABS: Glucose,Whole Blood 174 mg/dL (75-99)
[2020-08-28 20:04] LABS: Glucose,Whole Blood 242 mg/dL (75-99)
[2020-08-28] MEDS: INSULIN DETEMIR (LEVEMIR) 100 UNIT/ML SYR SQ SCH (20:50)
[2020-08-29 06:16] LABS: Glucose,Whole Blood 134 mg/dL (75-99)
[2020-08-29] MEDS: PANTOPRAZOLE 40 MG TABLET PO SCH ×2 (06:29→17:30)
[2020-08-29] MEDS: INSULIN ASPART (NovoLOG) 100 UNIT/ML VIAL SQ SCH ×4 (06:29→21:57)
[2020-08-29] MEDS: LEVOTHYROXINE 75 MCG TAB PO SCH (06:29)
[2020-08-29 07:51] LABS: HCT 43.9 % (34.0-46.0); HGB 15.2 gm/dL (11.4-16.0); MCHC 34.6 g/dL (31.0-37.0); MCV 86.8 fL (80.0-100.0); Mean Platelet Volume 7.4; Platelet Count 316 k/uL (150-450); RBC 5.06 m/uL (3.80-5.40); RDW 13.3 % (11.5-15.5)
[2020-08-29 08:16] LABS: ALT 42 U/L (4-34); AST 42 U/L (14-36); African American GFR (CKD) >90 (>60 ml/min/1.73 sqM); Albumin 3.5 g/dL (3.5-5.0); Alkaline Phosphatase 75 U/L (38-126); Anion Gap 4 mmol/L; Blood Urea Nitrogen 18 mg/dL (7-17); Calcium 8.5 mg/dL (8.4-10.2); Carbon Dioxide 36 mmol/L (22-30); Chloride 95 mmol/L (98-107); Glucose 120 mg/dL (74-99); Magnesium 1.8 mg/dL (1.6-2.3); Non-African American GFR(CKD) >90 (>60 ml/min/1.73 sqM); Potassium 3.4 mmol/L (3.5-5.1); Sodium 135 mmol/L (137-145); Total Bilirubin 0.9 mg/dL (0.2-1.3); Total Protein 5.9 g/dL (6.3-8.2)
[2020-08-29] MEDS: lisinopriL 5 MG TAB PO SCH (08:59)
[2020-08-29] MEDS: ATORVASTATIN 40 MG TAB PO SCH (08:59)
[2020-08-29] MEDS: POTASSIUM CHLORIDE ER 20 MEQ TAB.ER PO SCH ×2 (08:59→12:30)
[2020-08-29] MEDS: HEPARIN SODIUM,PORCINE 5,000 UNIT/ML 1 ML VIAL SQ SCH ×2 (08:59→21:57)
[2020-08-29] MEDS: ASPIRIN 81 MG PO SCH (08:59)
[2020-08-29 12:29] LABS: Glucose,Whole Blood 245 mg/dL (75-99)
[2020-08-29] MEDS: DEXAMETHASONE SOD PHOSPHATE 4 MG/ML 1 ML VIAL IV SCH ×2 (12:30→17:30)
[2020-08-29] MEDS: MAGNESIUM SULFATE-D5W PMX 1 GM in DEXTROSE/WATER 1 100ML.BAG IVPB SCH ×2 (12:30→17:31)
--- NOTE | 2020-08-29 16:26 | P.PN ---
Subjective Progress Note Date: 08/29/20 Principal diagnosis: DKA This is a 50-year-old female with past medical history noted below who presented to the emergency room with persistent nausea, vomiting, and diarrhea. She had been hospitalized here from 08/18 through 08/21 for large right renal cyst which was drained by interventional radiology with severe nausea vomiting and diarrhea suspected to be due to acute viral gastroenteritis. A COVID-19 antigen test was run at that point in time and was negative. Her nausea vomiting and diarrhea improved with symptomatic management. She was discharged home in stable c ondition. She again presented on 08/22 with nausea, vomiting, and diarrhea. At that point in time she was found to be in mild DKA with a bicarb of 13 and anion gap of 14. She was started on DKA protocol was transitioned off on 08/23. Overnight on 08/23 the gas appliance adjuster was called secondary to ataxia and neurology consult was ordered. Patient was seen by neurology. She underwent an MRI of the brain without gadolinium which was suboptimal study but demonstrated no recent infarct and mild to minimal nonspecific white matter changes presumably on the basis of chronic small vessel ischemic changes, CTA of the head and neck showed no significant diameter reduction to account for symptom, CT cervical spine showed no evidence for acute fracture or subluxation of the for cervical spine, she underwent a 2-D echocardiogram which showed a normal ejection fraction of 60-65%. Her TSH was normal, hemoglobin A1c 7.8. She continued to have issues with ataxia which were unresolving. She was unable to stand or get out of the bed to use the bedside commode. Her symptoms were so debilitating that she required the bed benitez only. All movements resulted in nausea. She was noted to have hypophosphatemia and hypocalcemia which were corrected. She did continue to have some intermittent episodes of hypoglycemia during her hospital stay and insulin was adjusted. Patient has a history of being a very brittle diabetic. Vitamin B12 came back at 1164. Folate, copper, and zinc levels were normal. Inpatient rehab was consulted on the morning of 08/27 and arrived to the patient's room to find her lying on the floor. Patient states this happened when she was trying to scoot herself up in bed. She denied any changes in pain. A repeat MRI of the brain with and without contrast was completed on 08/27 which was normal and had no suspicious cerebellar central pontine abnormality. A MRI of the cervical spine was completed which again showed no abnormality to account for her symptoms. Case was again discussed with neurology at length and they recommended transfer to a tertiary care center for further evaluation of her ataxia. Electrolytes on 08/27 showed a potassium of 3.2 and a magnesium of 1.5 both of which were replaced. She had had an episode of hypoglycemia at approximately 6:45 AM with a blood sugar of 52 which corrected with oral intake. Case was discussed with [facility] who graciously accepted her transfer. Accepting physician is Dr. Marquise Dong. Currently await insurance auth for transfer. Over 08/28 and 08/29 her lower extremity weakness and numbness increased significantly. Started on steroids for possible inflammatory medicated conditions. Patient seen and examined at bedside. She reports worsening of her lower extremity numbness and states she can't feel anything now, she also reports weakness, nausea is unchanged, vision is unchanged, states her lower sternum and he feel weaker than before. General: non toxic, no distress, appears at stated age, temporal wasting Derm: warm, dry Head: atraumatic, normocephalic, symmetric Eyes: EOMI, no lid lag, anicteric sclera Mouth: no lip lesion, mucus membranes moist Cardiovascular: S1S2 reg, no murmur, positive posterior tibial pulse bilateral, Lungs: CTA bilateral, no rhonchi, no rales , no accessory muscle use Abdominal: soft, nontender to palpation, no guarding, no appreciable organome estelle Ext: no gross muscle atrophy, no edema, no contractures Neuro: CN II-XI grossly intact, no fasiculations, no tremors, muscle strength 4 out of 5 in bilateral lower extremities, no withdrawal to pain in bilateral lower extremities, [id number] poor, finger to nose poor, finger tracking his poor, patient reports slow thinking Psych: Alert, oriented, flat affect Ataxia with numbess/tingling/ and intermittent double vision, Loss of sensation in bilateral lower extremities - Plan on MRI thorasic and lumbar in AM when available, and LP, neuro ree-eval - Start empiric steroids for inflammatory condition, infection thought to be less likely due to being afebrile and normal WBC - Still unable to stand or move independently. - central pontine myelinolysis less like with normal repeat MRI of the Brain - Concern for less common disease process such as [place] variant of Gullian [place], unmasking of ALS, autoimmune or less likely infectious mediated conditions - [facility] has accepted the patient for further neurologic evaluation pending insurance authorization -PRNR consulted will follow patient, concerned about level of weakness. - PT/OT -Repeat MRI of the brain and MR C-spince again without definitive abnormality -MRI of the brain shows no recent infarct, but was a suboptimal study, and mild to minimal nonspecific white matter ischemic changes. Echocardiogram with e jection fraction 60-65% and no significant valvular disease -CT of the head and neck showed no significant diameter reduction to help the patient's symptoms -CT head without contrast showed age-related atrophic and small vessel ischemic changes -CT of the neck demonstrated no evidence of acute fracture or subluxation Diabetes mellitus type 2 - A1c 7.5 - levemir 15 units at night - SSI - follow BS Large right renal cyst -Status post IR drainage, plan is to follow-up with urology as outpatient Multiple hypoechoic liver lesions suspect for hemangioma -Possible MRI as outpatient for further evaluation Gastroenteritis, resolved -GI recommendations appreciated: No plan for scope at this point in time -Supportive care with antiemetics, and Bentyl -C. diff negative, stool culture negative -Rapid COVID 19 negative -Supportive care Chronic: Hypertension Hypothyroidism DKA, resolved DVT prophylaxis: SCDs Discussed with: patient, nursing Anticipated discharge: Sunday to Anticipated discharge place: [facility] A total of 35 minutes was spent on the care of this complex patient more than 5 0% of the time was spent in counseling and care coordination. Objective - Vital Signs Vital signs: Vital Signs Temp 98.7 F 08/29/20 12:00 Pulse 70 08/29/20 14:00 Resp 18 08/29/20 14:00 BP 154/81 08/29/20 12:00 Pulse Ox 95 08/29/20 12:00 Intake & Output 08/28/20 08/29/20 08/29/20 18:59 06:59 18:59 Intake Total 481 240 440 Output Total 400 400 Balance 81 -160 440 Weight 55 kg Intake: Oral 481 240 440 Output: Urine 400 400 Other: Voiding Method Bedpan Bedpan Bedpan # Voids 1 1 - Labs CBC & Chem 7: 08/29/20 07:25 08/29/20 07:25 Labs: Abnormal Lab Results - Last 24 Hours (Table) 08/28/20 08/28/20 08/29/20 Range/Units 16:51 20:01 06:12 Sodium (137-145) mmol/L Potassium (3.5-5.1) mmol/L Chloride (98-107) mmol/L Carbon Dioxide (22-30) mmol/L BUN (7-17) mg/dL Glucose (74-99) mg/dL POC Glucose (mg/dL) 174 H 242 H 134 H (75-99) mg/dL AST (14-36) U/L ALT (4-34) U/L Total Protein (6.3-8.2) g/dL 08/29/20 08/29/20 Range/Units 07:25 11:56 Sodium 135 L (137-145) mmol/L Potassium 3.4 L (3.5-5.1) mmol/L Chloride 95 L (98-107) mmol/L Carbon Dioxide 36 H (22-30) mmol/L BUN 18 H (7-17) mg/dL Glucose 120 H (74-99) mg/dL POC Glucose (mg/dL) 245 H (75-99) mg/dL AST 42 H (14-36) U/L ALT 42 H (4-34) U/L Total Protein 5.9 L (6.3-8.2) g/dL
[2020-08-29 17:07] LABS: Glucose,Whole Blood 325 mg/dL (75-99)
[2020-08-29 20:17] LABS: Glucose,Whole Blood 278 mg/dL (75-99)
[2020-08-29] MEDS: INSULIN DETEMIR (LEVEMIR) 100 UNIT/ML SYR SQ SCH (21:57)
[2020-08-30] MEDS: DEXAMETHASONE SOD PHOSPHATE 4 MG/ML 1 ML VIAL IV SCH ×2 (00:23→06:47)
[2020-08-30 06:19] LABS: Glucose,Whole Blood 164 mg/dL (75-99)
[2020-08-30] MEDS: PANTOPRAZOLE 40 MG TABLET PO SCH ×2 (06:47→18:50)
[2020-08-30] MEDS: LEVOTHYROXINE 75 MCG TAB PO SCH (06:47)
[2020-08-30] MEDS: INSULIN ASPART (NovoLOG) 100 UNIT/ML VIAL SQ SCH ×4 (06:47→22:01)
[2020-08-30] MEDS: ASPIRIN 81 MG PO SCH (08:41)
[2020-08-30] MEDS: lisinopriL 5 MG TAB PO SCH (08:41)
[2020-08-30] MEDS: ATORVASTATIN 40 MG TAB PO SCH (08:41)
[2020-08-30] MEDS: HEPARIN SODIUM,PORCINE 5,000 UNIT/ML 1 ML VIAL SQ SCH ×2 (08:41→22:01)
--- NOTE | 2020-08-30 11:44 | MR ---
EXAMINATION TYPE: MR nico/anthony wo/w con DATE OF EXAM: 08/30/2020 COMPARISON: None HISTORY: Ataxia, lower extremity weakness CONTRAST: Performed utilizing 5.5 mL intravenous Gadavist gadolinium contrast. TECHNIQUE: Multiplanar, multiecho imaging on a 3.0 Letty magnet is performed through the thoracic spi ne. Spinal cord maintains normal signal through its visualized course. Vertebral body alignment is normal. Vertebral body heights are preserved. Disc heights are preserved. Minimal disc desiccation within the mid to lower thoracic spine is present. No spinal canal stenosis is evident. IMPRESSIONS: 1. Minimal disc desiccation otherwise normal thoracic spine. EXAMINATION TYPE: MR nico/anthony wo/w con DATE OF EXAM: 08/30/2020 COMPARISON: CT abdomen pelvis 08/16/2020 HISTORY: Ataxia, lower extremity weakness CONTRAST: 5.5 mL intravenous Gadavist. TECHNIQUE: Multiplanar, multisequence images of the lumbar spine were acquired. FINDINGS: Cord terminates at the L1 level. L5-S1: No significant disc bulge or disc herniation. No spinal canal stenosis. No foraminal stenosi s. L4-L5: Minimal disc bulge with anterior thecal sac flattening is present. No spinal canal stenosis. No foraminal stenosis. Small amount of increased signals in the posterior disc space may be a small annular tear at L4-5. L3-L4: No significant disc bulge or disc herniation. No spinal canal stenosis. No foraminal stenosi s. L2-L3: No significant disc bulge or disc herniation. No spinal canal stenosis. No foraminal stenosi s. L1-L2: No significant disc bulge or disc herniation. No spinal canal stenosis. No foraminal stenosi s. T12-L1: No significant disc bulge or disc herniation. No spinal canal stenosis. No foraminal stenos is. No abnormal enhancement. There is hypointensity within the posterior mid right kidney on T1-weighted sequences. No enhancement is evident this is hyperintense on T2. This may correlate with a very large cyst identified on CT ex amination of 08/16/2020 IMPRESSION: 1. Small annular tear without significant disc bulging or spinal canal stenosis at L4-5. 2. Remaining disc levels appear normal without evidence of nerve root impingement. 3. Large cyst likely present on the right kidney better visualized on the prior CT.
[2020-08-30 12:26] LABS: Glucose,Whole Blood 358 mg/dL (75-99)
[2020-08-30 14:23] LABS: INR 1.1 (<1.2); Prothrombin Time 10.9 sec (9.0-12.0)
[2020-08-30 14:38] LABS: Glucose,Whole Blood 404 mg/dL (75-99)
[2020-08-30] MEDS ORDERED: IMMUNE GLOBULIN (GAMMAGARD) 20 GM in EMPTY BAG 1 BAG IV ONE (15:00)
--- NOTE | 2020-08-30 15:26 | P.PN ---
Subjective Progress Note Date: 08/30/20 (delayed charting seen at bedside at 1310) Principal diagnosis: DKA This is a 50-year-old female with past medical history noted below who presented to the emergency room with persistent nausea, vomiting, and diarrhea. She had been hospitalized here from 08/18 through 08/21 for large right renal cyst which was drained by interventional radiology with severe nausea vomiting and diarrhea suspected to be due to acute viral gastroenteritis. A COVID-19 antigen test was run at that point in time and was negative. Her nausea vomiting and diarrhea improved with symptomatic management. She was discharged home in stable condition. She again presented on 08/22 with nausea, vomiting, and diarrhea. At that point in time she was found to be in mild DKA with a bicarb of 13 and a nion gap of 14. She was started on DKA protocol was transitioned off on 08/23. Overnight on 08/23 the club waiter/waitress was called secondary to ataxia and neurology consult was ordered. Patient was seen by neurology. She underwent an MRI of the brain without gadolinium which was suboptimal study but demonstrated no recent infarct and mild to minimal nonspecific white matter changes presumably on the basis of chronic small vessel ischemic changes, CTA of the head and neck showed no significant diameter reduction to account for symptom, CT cervical spine showed no evidence for acute fracture or subluxation of the for cervical spine, she underwent a 2-D echocardiogram which showed a normal ejection fraction of 60-65%. Her TSH was normal, hemoglobin A1c 7.8. She continued to have issues with ataxia which were unresolving. She was unable to stand or get out of the bed to use the bedside commode. Her symptoms were so debilitating that she required the bed benitez only. All movements resulted in nausea. She was noted to have hypophosphatemia and hypocalcemia which were corrected. She did continue to have some intermittent episodes of hypoglycemia during her hospital stay and insulin was adjusted. Patient has a history of being a very brittle diabetic. Vitamin B12 came back at 1164. Folate, copper, and zinc levels were normal. Inpatient rehab was consulted on the morning of 08/27 and arrived to the patient's room to find her lying on the floor. Patient states this happened when she was trying to scoot herself up in bed. She denied any changes in pain. A repeat MRI of the brain with and without contrast was completed on 08/27 which was normal and had no suspicious cerebellar central pontine abnormality. A MRI of the cervical spine was completed which again showed no abnormality to account for her symptoms. Case was again discussed with neurology at length and they recommended transfer to a tertiary care center for further evaluation of her ataxia. Electrolytes on 08/27 showed a potassium of 3.2 and a magnesium of 1.5 both of which were replaced. She had an episode of hypoglycemia at approximately 6:45 AM with a blood sugar of 52 which corrected with oral intake. Case was discussed with [facility] who graciously accepted her transfer. Accepting physician is Dr. Marquise Dong. Currently await insurance auth for transfer. Over 08/28 and 08/29 her lower extremity weakness and numbness increased significantly. Started on steroids for possible inflammatory medicated conditions. MRI thorasic and Lumbar spine was unremarkable. Plan for LP with opening pressures. Patient seen and examined at bedside. She denies changes in symptoms. Continues to have lower extremity numbness and weakness. Some nausea without vomiting. No chest pain or shortness of breath still a slow thinking and intermittent blurry vision. General: non toxic, no distress, appears at stated age, temporal wasting Derm: warm, dry Head: atraumatic, normocephalic, symmetric Eyes: EOMI, no lid lag, anicteric sclera Mouth: no lip lesion, mucus membranes moist Cardiovascular: S1S2 reg, no murmur, positive posterior tibial pulse bilateral, Lungs: CTA bilateral, no rhonchi, no rales , no accessory muscle use Abdominal: soft, nontender to palpation, no guarding, no appreciable organomegaly Ext: no gross muscle atrophy, no edema, no contractures Neuro: CN II-XI grossly intact, no fasiculations, no tremors, muscle strength 3- 4 out of 5 in bilateral lower extremities, no withdrawal to pain in bilateral lower extremities, [id number] poor, finger to nose poor, finger tracking his poor, patient reports slow thinking Psych: Alert, oriented, flat affect Ataxia with numbess/tingling/ and intermittent double vision, Loss of sensation in bilateral lower extremities - MRI thorasic and lumbar spine unremarkable - LP to be done by IR today - Steroids stopped by neurology - Still unable to stand or move independently. - IVIG for possible [place] variant of Gulliam [place] - Concern for less common disease process such as [place] variant of Gullian [place], unmasking of ALS, autoimmune or less likely infectious mediated conditions - [facility] has accepted the patient for further neurologic evaluation, insurance auth obtained, awaiting bed. -PMR consulted will follow patient, concerned about level of weakness. - PT/OT -Repeat MRI of the brain and MR C-spince again without definitive abnormality -MRI of the brain shows no recent infarct, but was a suboptimal study, and mild to minimal nonspecific white matter ischemic changes. Echocardiogram with ejection fraction 60-65% and no significant valvular disease -CT of the head and neck showed no significant diameter reduction to help the patient's symptoms -CT head without contrast showed age-related atrophic and small vessel ischemic changes -CT of the neck demonstrated no evidence of acute fracture or subluxation Diabetes mellitus type 2 with hyperglycemia - A1c 7.5 - levemir 15 units at night - SSI - follow BS Large right renal cyst -Status post IR drainage, plan is to follow-up with urology as outpatient Multiple hypoechoic liver lesions suspect for hemangioma -Possible MRI as outpatient for further evaluation Gastroenteritis, resolved -GI recommendations appreciated: No plan for scope at this point in time -Supportive care with antiemetics, and Bentyl -C. diff negative, stool culture negative -Rapid COVID 19 negative -Supportive care Chronic: Hypertension Hypothyroidism DKA, resolved DVT prophylaxis: SCDs Discussed with: patient, nursing Anticipated discharge: Sunday to Anticipated discharge place: [facility] A total of 35 minutes was spent on the care of this complex patient more than 50% of the time was spent in counseling and care coordination. Objective - Vital Signs Vital signs: Vital Signs Temp 98.0 F 08/30/20 08:00 Pulse 89 08/30/20 15:13 Resp 14 08/30/20 15:13 BP 113/69 08/30/20 15:13 Pulse Ox 97 08/30/20 15:13 Intake & Output 08/29/20 08/30/20 08/30/20 18:59 06:59 18:59 Intake Total 440 222 Output Total 200 Balance 440 -200 222 Weight 53.5 kg Intake: Oral 440 222 Output: Urine 200 Other: Voiding Method Bedpan Bedpan Diaper # Voids 0 1 1 # Bowel Movements 0 - Labs CBC & Chem 7: 08/29/20 07:25 08/30/20 14:05 Labs: Abnormal Lab Results - Last 24 Hours (Table) 08/29/20 08/29/20 08/30/20 Range/Units 16:46 20:14 06:16 Glucose (74-99) mg/dL POC Glucose (mg/dL) 325 H 278 H 164 H (75-99) mg/dL 08/30/20 08/30/20 08/30/20 Range/Units 12:23 14:05 14:35 Glucose 408 H (74-99) mg/dL POC Glucose (mg/dL) 358 H 404 H (75-99) mg/dL
--- NOTE | 2020-08-30 15:56 | P.PN ---
Subjective Progress Note Date: 08/30/20 Patient was seen at bedside and she said that her condition somewhat improving. She feels like she still ataxic of the upper and lower 70s. She still unsteady and can't walk. She feels her body is numb from neck down. She feels like she is having diplopia out of both eyes and it's the up and down is mostly left eye. Upon asking her what she presented with prior to coming to the hospital she said that she had ataxia first then the risks his symptoms began she couldn't tell me whether he started in the lower extremities first or upper extremities just felt unsteady walk-in. And then the rest the symptoms of diplopia sensation was started and she said that started the the sensation in the diplop ia when she was in the hospital. His past Sunday the primary team attempted to transfer the patient reports that since there is no neurology service [facility] pending insurance authorization. Objective - Vital Signs Vital signs: Vital Signs Temp 98.0 F 08/30/20 08:00 Pulse 71 08/30/20 15:27 Resp 16 08/30/20 15:27 BP 111/68 08/30/20 15:27 Pulse Ox 95 08/30/20 15:27 Intake & Output 08/29/20 08/30/20 08/30/20 18:59 06:59 18:59 Intake Total 440 222 Output Total 200 Balance 440 -200 222 Weight 53.5 kg Intake: Oral 440 222 Output: Urine 200 Other: Voiding Method Bedpan Bedpan Diaper # Voids 0 1 1 # Bowel Movements 0 - Exam GENERAL: The patient is lying in bed and is in mild acute distress. NEUROLOGICAL: Higher mental function: The patient is awake, alert, oriented to self, place and time. Patient is following commands. No aphasia and no neglect. Cranial nerves: The pupils are round, equal and reactive to light and accommodation. Visual sommer are full to confrontation throughout. Extraocular movement is intact no nystagmus is noted. Facial sensation is normal to touch throughout. The facial strength is normal throughout. Hearing is normal bilate rally to hand rub. Tongue is midline and moved [id number] without any difficulty. Mild dysarthria noted. Shoulder shrug is normal bilaterally. Motor: Gait was deferred because patient felt unsteady walking. The strength is 5-/5 over the left upper extremity. Bilateral lower extremity: 5- bilaterally. Otherwise is 5 over 5 throughout. Decrease tone throughout. There is no resting tremor or no spontaneous abnormal movements. Cerebellum: With a finger to chin and heel to hammer she was ataxic (worse over upper > lower). Sensation: She felt decrease to touch throughout entire body up until base of neck region bilaterally. Reflexes (right/left): ) 0 ankles, 0-1 at patellars and 1+ in bilateral upper extremities. Plantars are mute bilaterally. - Labs CBC & Chem 7: 08/29/20 07:25 08/30/20 14:05 Labs: Abnormal Lab Results - Last 24 Hours (Table) 08/29/20 08/29/20 08/30/20 Range/Units 16:46 20:14 06:16 Glucose (74-99) mg/dL POC Glucose (mg/dL) 325 H 278 H 164 H (75-99) mg/dL 08/30/20 08/30/20 08/30/20 Range/Units 12:23 14:05 14:35 Glucose 408 H (74-99) mg/dL POC Glucose (mg/dL) 358 H 404 H (75-99) mg/dL Assessment and Plan Assessment: 50-year-old woman with that presented to the emergency department on 08/22/2020 for complaint of nausea vomiting and diarrhea for the past 1 week. She is also having ataxia, unsteady walking for the past one week prior to presentation. Also complaining of diplopia out of both eyes, feels she is slurring speech and difficulty getting her words out, sensation throughout body is off for past one week. 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 Brittle diabetes Hypocalcemia DKA--resolved Electrolyte imbalance (phosphorus, hypocalcemia) Episodes of hypoglycemia Hypothyroidism History of thyroid nodule status post thyroidectomy Plan: MRI of the brain without gadolinium: Suboptimal study but no MRI evidence of recent infarct. Mild to minimal nonspecific white matter changes presumably on the basis of chronic of chronic small vessel ischemic changes. Chronic paranasal sinus disease redemonstrated. CTA of the head and neck was reported as no significant diameter reduction to account for the patient's symptoms. No significant abnormality. CT cervical spine ordered by the primary team was reported as no evidence for acute fracture or subluxation of the cervical spine that. MRI Brain and Cervical spine 08/27/20: Is reported as normal MRI the brain. No suspicious cerebellar or central pontine abnormality. Essentially normal MRI the cervical spine. MRI of the thoracic spine08/30/20 ordered by primary team was reported as minimal disc desiccation otherwise normal thoracic spine 2-D echo: Was reported as left ventricular size is normal. Left ventricle wall thickness is normal. Ejection fraction between 60-65%. lipid profile: Triglyceride 114, cholesterol 135, LDL 61, HDL 51. TSH: 0.786. hemoglobin A1c: 7.8. vitamin B12: 1164 which is normal. RBC Folate: 640 (normal) copper: 936 (normal) and zinc: 77 (normal). I stopped the aspirin 81 mg and Lipitor 40 mg since this is not a stroke. Patient is going for an urgent lumbar puncture today. IR is consulted. I started the patient on IVIG 2 g per kg over 5 days. The patient was started on dexamethasone 4 mg every 6 hours by the primary team on 08/29/2020 and I discontinued. Occupation therapy and physical therapy are on board. Inpatient rehab is on board. If the patient's conditions worsens then recommend patient to be transferred over to ICU. If patient is still not transferred to [facility] and if completed IVIG and no improvement then will try to transfer patient to another facility for possible Plasma exchange(PLEX) and EMG with NCS study. Regarding that electrolyte imbalance correction will defer management to the primary team. Recommend avoiding hypoglycemia episodes and will defer the management and diabetes to the primary team. Plan was discussed with the patient and primary team. Luisito Allen M.D. Neuro-hospitalist Time with Patient: Less than 30
--- NOTE | 2020-08-30 16:24 | FL ---
Lumbar puncture INDICATION: Pain FINDINGS: Fluoroscopy time: 7 seconds. Images obtained: 2. The procedure was explained to the patient. Risks complications and benefits were discussed. Alternat pipo were discussed. All questions were answered. Informed consent was obtained. A timeout was performed. The L3-4 level was chosen for access. Maximum barrier sterile technique was utilized. The skin was cl eansed with Betadine and the patient sterilely prepped and draped in the usual manner. The skin and d eeper tissue was anesthetized with 1% Lidocaine. Utilizing a 22-gauge spinal needle the spinal canal was accessed. Good CSF return was evident. Opening pressure was measured at 12.6 cm. Closing pressure was measured at 6.0 cm. A total of 9.5 mL of CSF was removed. The stylette was replaced and the need le withdrawn. 2 Fluoroscopic spot images were obtained. The patient tolerated the procedure well. Discharge instructions were discussed with the patient. Th e patient was returned to her room. IMPRESSIONS: 1. Successful Lumbar Puncture.
[2020-08-30 17:50] LABS: Glucose,Whole Blood 250 mg/dL (75-99)
[2020-08-30 20:15] LABS: Glucose,Whole Blood 348 mg/dL (75-99)
[2020-08-30 20:33] LABS: Appearance,CSF Clear; CSF Tube Number 4; CSF Tube Volume 2; Glucose,CSF 200 mg/dL (40-70); Nucleated Cells, CSF 0 u/L (0-5); Red Blood Cell,CSF 3 u/L (0-10); Total Protein,CSF 220 mg/dL (12-60)
[2020-08-30] MEDS: INSULIN DETEMIR (LEVEMIR) 100 UNIT/ML SYR SQ SCH (22:02)
[2020-08-31 06:01] LABS: Glucose,Whole Blood 92 mg/dL (75-99)
[2020-08-31] MEDS: PANTOPRAZOLE 40 MG TABLET PO SCH ×2 (06:41→17:21)
[2020-08-31] MEDS: LEVOTHYROXINE 75 MCG TAB PO SCH (06:42)
[2020-08-31] MEDS: INSULIN ASPART (NovoLOG) 100 UNIT/ML VIAL SQ SCH ×4 (07:48→21:18)
[2020-08-31] MEDS: DEXAMETHASONE SOD PHOSPHATE 4 MG/ML 1 ML VIAL IV SCH (07:50)
[2020-08-31 08:52] LABS: HCT 43.7 % (34.0-46.0); HGB 14.8 gm/dL (11.4-16.0); MCH 29.7 pg (25.0-35.0); MCHC 33.8 g/dL (31.0-37.0); MCV 87.8 fL (80.0-100.0); Mean Platelet Volume 7.5; Platelet Count 302 k/uL (150-450); RBC 4.97 m/uL (3.80-5.40); RDW 13.2 % (11.5-15.5); WBC 10.3 k/uL (3.8-10.6)
[2020-08-31 09:01] LABS: ALT 79 U/L (4-34); AST 62 U/L (14-36); African American GFR (CKD) >90 (>60 ml/min/1.73 sqM); Albumin 3.6 g/dL (3.5-5.0); Alkaline Phosphatase 80 U/L (38-126); Anion Gap 1 mmol/L; Blood Urea Nitrogen 17 mg/dL (7-17); Calcium 8.5 mg/dL (8.4-10.2); Carbon Dioxide 35 mmol/L (22-30); Chloride 99 mmol/L (98-107); Glucose 106 mg/dL (74-99); Magnesium 1.8 mg/dL (1.6-2.3); Non-African American GFR(CKD) >90 (>60 ml/min/1.73 sqM); Potassium 3.5 mmol/L (3.5-5.1); Sodium 135 mmol/L (137-145); Total Bilirubin 0.9 mg/dL (0.2-1.3); Total Protein 6.7 g/dL (6.3-8.2)
[2020-08-31] MEDS: HEPARIN SODIUM,PORCINE 5,000 UNIT/ML 1 ML VIAL SQ SCH ×2 (09:29→20:11)
[2020-08-31] MEDS: lisinopriL 5 MG TAB PO SCH (09:33)
--- NOTE | 2020-08-31 11:37 | P.PN ---
Subjective Progress Note Date: 08/31/20 He was seen at bedside and the she received her first dose of IVIG yesterday. She stated that she feels about the same amount yesterday compared to today. She denies any worsening of her condition. She continues to feel ataxia of all extremities, numbness throughout the body except the face as well as the slurring her speech. Patient had lumbar puncture yesterday (08/30/2020) at around 1515 and the the results are the CSF appears clear, colorless, there is three-year red blood cell, 0 nucleated cells, CSF glucose is 200 (normal range 40-70), CSF total protein is 220 (normal range 12-60). Patient POC glucose at 1435 on 08/30/2020 was 404. CSF the Gram stain is the preliminary no organism. Objective - Vital Signs Vital signs: Vital Signs Temp 97.8 F 08/31/20 08:00 Pulse 75 08/31/20 08:00 Resp 19 08/31/20 08:00 BP 179/80 08/31/20 08:00 Pulse Ox 97 08/31/20 08:00 Intake & Output 08/30/20 08/31/20 08/31/20 18:59 06:59 18:59 Intake Total 587 200.000 240 Output Total 200 Balance 587 200.000 40 Weight 57.5 kg Intake: Intake, IV Titration 200.000 Amount Immune Globulin ( 200.000 Gammagard) 20 gm In Empty Bag 1 bag @ Titrate IV . Q0M ONE Rx#:[id number] Oral 587 240 Output: Urine 200 Other: Voiding Method Bedpan Bedpan Diaper Diaper # Voids 2 1 # Bowel Movements 3 2 - Exam GENERAL: The patient is lying in bed and is in mild acute distress. NEUROLOGICAL: Higher mental function: The patient is awake, alert, oriented to self, place and time. Patient is following commands. No aphasia and no neglect. Cranial nerves: The pupils are round, equal and reactive to light and accommodation. Visual sommer are full to confrontation throughout. Extraocular movement is intact no nystagmus is noted. Facial sensation is normal to touch throughout. The facial strength is normal throughout. Hearing is normal bilaterally to hand rub. Tongue is midline and moved [id number] without any difficulty. Mild dysarthria noted. Shoulder shrug is normal bilaterally. Motor: Gait was deferred because patient felt unsteady walking. The strength is 5-/5 over the left upper extremity. Bilateral lower extremity: 5- bilaterally. Otherwise is 5 over 5 throughout. Decrease tone throughout. There is no resting tremor or no spontaneous abnormal movements. Cerebellum: With a finger to chin and heel to hammer she was ataxic (worse over upper > lower). Sensation: She felt decrease to touch and pinprick throughout entire body up until base of neck region bilaterally. Reflexes (right/left): ) 0 ankles, 0-1 at patellars and 1+ in bilateral upper extremities. Plantars are mute bilaterally. - Labs CBC & Chem 7: 08/31/20 08:26 08/31/20 08:26 Labs: Abnormal Lab Results - Last 24 Hours (Table) 08/30/20 08/30/20 08/30/20 Range/Units 12:23 14:05 14:35 Sodium (137-145) mmol/L Carbon Dioxide (22-30) mmol/L Glucose 408 H (74-99) mg/dL POC Glucose (mg/dL) 358 H 404 H (75-99) mg/dL AST (14-36) U/L ALT (4-34) U/L CSF Glucose (40-70) mg/dL CSF Total Protein (12-60) mg/dL 08/30/20 08/30/20 08/30/20 Range/Units 15:15 17:33 20:11 Sodium (137-145) mmol/L Carbon Dioxide (22-30) mmol/L Glucose (74-99) mg/dL POC Glucose (mg/dL) 250 H 348 H (75-99) mg/dL AST (14-36) U/L ALT (4-34) U/L CSF Glucose 200 H (40-70) mg/dL CSF Total Protein 220 H (12-60) mg/dL 08/31/20 Range/Units 08:26 Sodium 135 L (137-145) mmol/L Carbon Dioxide 35 H (22-30) mmol/L Glucose 106 H (74-99) mg/dL POC Glucose (mg/dL) (75-99) mg/dL AST 62 H (14-36) U/L ALT 79 H (4-34) U/L CSF Glucose (40-70) mg/dL CSF Total Protein (12-60) mg/dL Microbiology - Last 24 Hours (Table) 08/30/20 15:15 CSF Gram Stain - Preliminary Cerebral Spinal Fluid CSF Culture - Preliminary Assessment and Plan Assessment: 50-year-old woman with that presented to the emergency department on 08/22/2020 for complaint of nausea vomiting and diarrhea for the past 1 week. She is also having ataxia, unsteady walking for the past one week prior to presentation. Also complaining of diplopia out of both eyes, feels she is slurring speech and difficulty getting her words out, sensation throughout body is off for past one week. 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 Brittle diabetes Hypocalcemia DKA--resolved Electrolyte imbalance (phosphorus, hypocalcemia) Episodes of hypoglycemia Hypothyroidism History of thyroid nodule status post thyroidectomy Plan: MRI of the brain without gadolinium: Suboptimal study but no MRI evidence of recent infarct. Mild to minimal nonspecific white matter changes presumably on the basis of chronic of chronic small vessel ischemic changes. Chronic paranasal sinus disease redemonstrated. CTA of the head and neck was reported as no significant diameter reduction to account for the patient's symptoms. No significant abnormality. CT cervical spine ordered by the primary team was reported as no evidence for acute fracture or subluxation of the cervical spine that. MRI Brain and Cervical spine 08/27/20: Is reported as normal MRI the brain. No suspicious cerebellar or central pontine abnormality. Essentially normal MRI the cervical spine. MRI of the thoracic spine08/30/20 ordered by primary team was reported as minimal disc desiccation otherwise normal thoracic spine 2-D echo: Was reported as left ventricular size is normal. Left ventricle wall thickness is normal. Ejection fraction between 60-65%. lipid profile: Triglyceride 114, cholesterol 135, LDL 61, HDL 51. TSH: 0.786. hemoglobin A1c: 7.8. vitamin B12: 1164 which is normal. RBC Folate: 640 (normal) copper: 936 (normal) and zinc: 77 (normal). I stopped the aspirin 81 mg and Lipitor 40 mg since this is not a stroke. Patient had lumbar puncture yesterday (08/30/2020) at around 1515 and the the results are the CSF appears clear, colorless, there is three-year red blood cell, 0 nucleated cells, CSF glucose is 200 (normal range 40-70), CSF total protein is 220 (normal range 12-60). Patient POC glucose at 1435 on 08/30/2020 was 404. The CSF is suggestive of albuminocytologic dissociation suggestive of the GBS. He S the patient does have diabetes which can elevate the CSF protein but I think this is a drastic elevation of the 14 and with the clinical presentation I feel like the patient has a GBS. I started the patient on IVIG 2 g per kg over 5 days started on 08/30/2020 I ordered serum GQ1 antibody. I ordered vitamin E level. I started the patient on thiamine IV 100 mg daily especially with her diarrhea that can cause a vitamin deficiency. Occupation therapy and physical therapy are on board. Inpatient rehab is on board. If the patient's conditions worsens then recommend patient to be transferred over to ICU. If patient is still not transferred to [facility] and if completed IVIG and no improvement then will try to transfer patient to another facility for possible Plasma exchange(PLEX) and EMG with NCS study. Regarding that electrolyte imbalance correction will defer management to the primary team. Recommend avoiding hypoglycemia episodes and will defer the management and diabetes to the primary team. Plan was discussed with the patient and primary team. Luisito Allen M.D. Neuro-hospitalist Time with Patient: Less than 30
[2020-08-31 11:44] LABS: Glucose,Whole Blood 245 mg/dL (75-99)
[2020-08-31] MEDS: THIAMINE 100 MG/ML 2 ML VIAL IVP SCH (12:59)
--- NOTE | 2020-08-31 14:50 | P.PN ---
Subjective Progress Note Date: 08/31/20 (delayed charting seen at 0845) Principal diagnosis: DKA This is a 50-year-old female with past medical history noted below who presented to the emergency room with persistent nausea, vomiting, and diarrhea. She had been hospitalized here from 08/18 through 08/21 for large right renal cyst which was drained by interventional radiology with severe nausea vomiting and diarrhea suspected to be due to acute viral gastroenteritis. A COVID-19 antigen test was run at that point in time and was negative. Her nausea vomiting and diarrhea improved with symptomatic management. She was discharged home in stable condition. She again presented on 08/22 with nausea, vomiting, and diarrhea. At that point in time she was found to be in mild DKA with a bicarb of 13 and anion gap of 14. She was started on DKA protocol was transitioned off on 08/23. Overnight on 08/23 the field contact technician was called secondary to ataxia and neurology consult was ordered. Patient was seen by neurology. She underwent an MRI of the brain without gadolinium which was suboptimal study but demonstrated no recent infarct and mild to minimal nonspecific white matter changes presumably on the basis of chronic small vessel ischemic changes, CTA of the head and neck showed no significant diameter reduction to account for symptom, CT cervical spine showed no evidence for acute fracture or subluxation of the for cervical spine, she underwent a 2-D echocardiogram which showed a normal ejection fraction of 60-65%. Her TSH was normal, hemoglobin A1c 7.8. She continued to have issues with ataxia which were unresolving. She was unable to stand or get out of the bed to use the bedside commode. Her symptoms were so debilitating that she required the bed benitez only. All movements resulted in nausea. She was noted to have hypophosphatemia and hypocalcemia which were corrected. She did continue to have some intermittent episodes of hypoglycemia during her hospital stay and insulin was adjusted. Patient has a history of being a very brittle diabetic. Vitamin B12 came back at 1164. Folate, copper, and zinc levels were normal. Inpatient rehab was consulted on the morning of 08/27 and arrived to the patient's room to find her lying on the floor. Patient states this happened when she was trying to scoot herself up in bed. She denied any changes in pain. A repeat MRI of the brain with and without contrast was completed on 08/27 which was normal and had no suspicious cerebellar central pontine abnormality. A MRI of the cervical spine was completed which again showed no abnormality to account for her symptoms. Case was again discussed with neurology at length and they recommended transfer to a tertiary care center for further evaluation of her ataxia. Electrolytes on 08/27 showed a potassium of 3.2 and a magnesium of 1.5 both of which were replaced. She had an episode of hypoglycemia at approximately 6:45 AM with a blood sugar of 52 which corrected with oral intake. Case was discussed with [facility] who graciously accepted her transfer. Accepting physician is Dr. Marquise Dong. Currently await insurance auth for transfer. Over 08/28 and 08/29 her lower extremity weakness and numbness increased significantly. Started on steroids for possible inflammatory medicated conditions. MRI thorasic and Lumbar spine was unremarkable. 08/30 she underwent LP consistent with elevated protein and normal WBC. She was started on IVIG for possible Gullain Brohman Patient seen and examined at bedside. She states she still continues yesterday. Not having any nausea this morning but has not tried subcu. Denies any chest pain or shortness of breath. Initially felt as though her symptoms were unchanged however on physical exam she did agree that her sensation was increased in her lower extremities. General: non toxic, no distress, appears at stated age, temporal wasting Derm: warm, dry Head: atraumatic, normocephalic, symmetric Eyes: EOMI, no lid lag, anicteric sclera Mouth: no lip lesion, mucus membranes moist Cardiovascular: S1S2 reg, no murmur, positive posterior tibial pulse bilateral, Lungs: CTA bilateral, no rhonchi, no rales , no accessory muscle use Abdominal: soft, nontender to palpation, no guarding, no appreciable organomegaly Ext: no gross muscle atrophy, no edema, no contractures Neuro: CN II-XI grossly intact, no fasiculations, no tremors, muscle strength 4 out of 5 in bilateral lower extremities, slight withdrawal to pain in right lower extremity, withdrawal to pain in left lower extremity, [id number] poor, finger to nose poor, finger tracking poor, patient reports slow thinking Psych: Alert, oriented, flat affect 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 -PMR consulted will follow patient, concerned about level of weakness. - PT/OT - MRI thorasic and lumbar spine unremarkable - Repeat MRI of the brain and MR C-spince again without definitive abnormality - MRI of the brain shows no recent infarct, but was a suboptimal study, and mild to minimal nonspecific white matter ischemic changes. Echocardiogram with ejection fraction 60-65% and no significant valvular disease - CT of the head and neck showed no significant diameter reduction to help the patient's symptoms - CT head without contrast showed age-related atrophic and small vessel ischemic changes - CT of the neck demonstrated no evidence of acute fracture or subluxation Diabetes mellitus type 2 with hyperglycemia - A1c 7.5 - levemir 10 units at night - SSI - follow BS Large right renal cyst -Status post IR drainage, plan is to follow-up with urology as outpatient Multiple hypoechoic liver lesions suspect for hemangioma -Possible MRI as outpatient for further evaluation Gastroenteritis, resolved -GI recommendations appreciated: No plan for scope at this point in time -Supportive care with antiemetics, and Bentyl -C. diff negative, stool culture negative -Rapid COVID 19 negative -Supportive care Chronic: Hypertension Hypothyroidism DKA, resolved DVT prophylaxis: SCDs Discussed with: patient, nursing Anticipated discharge: unknown Anticipated discharge place: [facility] A total of 35 minutes was spent on the care of this complex patient more than 50% of the time was spent in counseling and care coordination. Objective - Vital Signs Vital signs: Vital Signs Temp 97.9 F 08/31/20 12:07 Pulse 67 08/31/20 12:07 Resp 19 08/31/20 12:07 BP 175/79 08/31/20 12:07 Pulse Ox 95 08/31/20 12:07 Intake & Output 08/30/20 08/31/20 08/31/20 18:59 06:59 18:59 Intake Total 587 200.000 240 Output Total 200 Balance 587 200.000 40 Weight 57.5 kg Intake: Intake, IV Titration 200.000 Amount Immune Globulin ( 200.000 Gammagard) 20 gm In Empty Bag 1 bag @ Titrate IV . Q0M ONE Rx#:[id number] Oral 587 240 Output: Urine 200 Other: Voiding Method Bedpan Bedpan Diaper Diaper # Voids 2 1 # Bowel Movements 3 2 - Labs CBC & Chem 7: 08/31/20 08:26 08/31/20 08:26 Labs: Abnormal Lab Results - Last 24 Hours (Table) 08/30/20 08/30/20 08/30/20 Range/Units 14:35 15:15 17:33 Sodium (137-145) mmol/L Carbon Dioxide (22-30) mmol/L Glucose (74-99) mg/dL POC Glucose (mg/dL) 404 H 250 H (75-99) mg/dL AST (14-36) U/L ALT (4-34) U/L CSF Glucose 200 H (40-70) mg/dL CSF Total Protein 220 H (12-60) mg/dL 08/30/20 08/31/20 08/31/20 Range/Units 20:11 08:26 11:42 Sodium 135 L (137-145) mmol/L Carbon Dioxide 35 H (22-30) mmol/L Glucose 106 H (74-99) mg/dL POC Glucose (mg/dL) 348 H 245 H (75-99) mg/dL AST 62 H (14-36) U/L ALT 79 H (4-34) U/L CSF Glucose (40-70) mg/dL CSF Total Protein (12-60) mg/dL Microbiology - Last 24 Hours (Table) 08/30/20 15:15 CSF Gram Stain - Preliminary Cerebral Spinal Fluid CSF Culture - Preliminary
[2020-08-31] MEDS ORDERED: IMMUNE GLOBULIN (GAMMAGARD) 20 GM in EMPTY BAG 1 BAG IV ONE (15:00)
[2020-08-31 16:38] LABS: Glucose,Whole Blood 320 mg/dL (75-99)
[2020-08-31 20:37] LABS: Glucose,Whole Blood 275 mg/dL (75-99)
[2020-08-31] MEDS ORDERED: INSULIN DETEMIR (LEVEMIR) 100 UNIT/ML SYR SQ SCH (21:00)
[2020-09-01] MEDS ORDERED: GABAPENTIN 300 MG CAP PO STA (00:33)
[2020-09-01] MEDS ORDERED: HYDROcodone/APAP 5-325MG 1 EACH TAB PO PRN ×2 (00:33→00:36)
[2020-09-01] MEDS: HEPARIN SODIUM,PORCINE 5,000 UNIT/ML 1 ML VIAL SQ SCH ×2 (00:43→08:45)
[2020-09-01 06:29] LABS: Glucose,Whole Blood 120 mg/dL (75-99)
[2020-09-01] MEDS: INSULIN ASPART (NovoLOG) 100 UNIT/ML VIAL SQ SCH ×3 (06:32→17:36)
[2020-09-01] MEDS: PANTOPRAZOLE 40 MG TABLET PO SCH ×2 (06:38→17:36)
[2020-09-01] MEDS: LEVOTHYROXINE 75 MCG TAB PO SCH (06:38)
[2020-09-01] MEDS ORDERED: ALPRAZolam 0.25 MG TAB PO PRN (07:47)
[2020-09-01] MEDS: lisinopriL 5 MG TAB PO SCH (08:45)
[2020-09-01] MEDS: THIAMINE 100 MG/ML 2 ML VIAL IVP SCH (08:45)
[2020-09-01 09:07] LABS: African American GFR (CKD) >90 (>60 ml/min/1.73 sqM); Anion Gap 4 mmol/L; Blood Urea Nitrogen 16 mg/dL (7-17); Calcium 8.3 mg/dL (8.4-10.2); Carbon Dioxide 37 mmol/L (22-30); Chloride 93 mmol/L (98-107); Glucose 181 mg/dL (74-99); Non-African American GFR(CKD) >90 (>60 ml/min/1.73 sqM); Potassium 3.9 mmol/L (3.5-5.1); Sodium 134 mmol/L (137-145)
[2020-09-01 09:15] LABS: HCT 44.2 % (34.0-46.0); HGB 15.1 gm/dL (11.4-16.0); MCH 30.6 pg (25.0-35.0); MCHC 34.3 g/dL (31.0-37.0); MCV 89.2 fL (80.0-100.0); Mean Platelet Volume 7.3; Platelet Count 268 k/uL (150-450); RBC 4.95 m/uL (3.80-5.40); RDW 13.4 % (11.5-15.5); WBC 5.7 k/uL (3.8-10.6)
[2020-09-01 12:01] LABS: Glucose,Whole Blood 278 mg/dL (75-99)
[2020-09-01 12:24] VITALS: TEMP 97.5
[2020-09-01] MEDS ORDERED: IMMUNE GLOBULIN (GAMMAGARD) 20 GM in EMPTY BAG 1 BAG IV ONE (15:00)
--- NOTE | 2020-09-01 16:45 | P.PN ---
Subjective Progress Note Date: 09/01/20 (delayed charting seen at 0905) Principal diagnosis: DKA This is a 50-year-old female with past medical history noted below who presented to the emergency room with persistent nausea, vomiting, and diarrhea. She had been hospitalized here from 08/18 through 08/21 for large right renal cyst which was drained by interventional radiology with severe nausea vomiting and diarrhea suspected to be due to acute viral gastroenteritis. A COVID-19 antigen test was run at that point in time and was negative. Her nausea vomiting and diarrhea improved with symptomatic management. She was discharged home in stable condition. She again presented on 08/22 with nausea, vomiting, and diarrhea. At that point in time she was found to be in mild DKA with a bicarb of 13 and anion gap of 14. She was started on DKA protocol was transitioned off on 08/23. Overnight on 08/23 the roadability machine operator was called secondary to ataxia and neurology consult was ordered. Patient was seen by neurology. She underwent an MRI of the brain without gadolinium which was suboptimal study but demonstrated no recent infarct and mild to minimal nonspecific white matter changes presumably on the basis of chronic small vessel ischemic changes, CTA of the head and neck showed no significant diameter reduction to account for symptom, CT cervical spine showed no evidence for acute fracture or subluxation of the for cervical spine, she underwent a 2-D echocardiogram which showed a normal ejection fraction of 60-65%. Her TSH was normal, hemoglobin A1c 7.8. She continued to have issues with ataxia which were unresolving. She was unable to stand or get out of the bed to use the bedside commode. Her symptoms were so debilitating that she required the bed benitez only. All movements resulted in nausea. She was noted to have hypophosphatemia and hypocalcemia which were corrected. She did continue to have some intermittent episodes of hypoglycemia during her hospital stay and insulin was adjusted. Patient has a history of being a very brittle diabetic. Vitamin B12 came back at 1164. Folate, copper, and zinc levels were normal. Inpatient rehab was consulted on the morning of 08/27 and arrived to the patient's room to find her lying on the floor. Patient states this happened when she was trying to scoot herself up in bed. She denied any changes in pain. A repeat MRI of the brain with and without contrast was completed on 08/27 which was normal and had no suspicious cerebellar central pontine abnormality. A MRI of the cervical spine was completed which again showed no abnormality to account for her symptoms. Case was again discussed with neurology at length and they recommended transfer to a tertiary care center for further evaluation of her ataxia. Electrolytes on 08/27 showed a potassium of 3.2 and a magnesium of 1.5 both of which were replaced. She had an episode of hypoglycemia at approximately 6:45 AM with a blood sugar of 52 which corrected with oral intake. Over 08/28 and 08/29 her lower extremity weakness and numbness increased significantly. Started on steroids for possible inflammatory medicated conditions. MRI thorasic and Lumbar spine was unremarkable. 08/30 she underwent LP consistent with elevated protein and normal WBC. She was started on IVIG for possible Gullain [place] Patient seen and examined at bedside. She states she still continues yesterday. Not having any nausea this morning but has not tried subcu. Denies any chest pain or shortness of breath. Initially felt as though her symptoms were unchanged however on physical exam she did agree that her sensation was increased in her lower extremities. General: non toxic, no distress, appears at stated age, temporal wasting Derm: warm, dry Head: atraumatic, normocephalic, symmetric Eyes: EOMI, no lid lag, anicteric sclera Mouth: no lip lesion, mucus membranes moist Cardiovascular: S1S2 reg, no murmur, positive posterior tibial pulse bilateral, Lungs: CTA bilateral, no rhonchi, no rales , no accessory muscle use Abdominal: soft, nontender to palpation, no guarding, no appreciable organomegaly Ext: no gross muscle atrophy, no edema, no contractures Neuro: CN II-XI grossly intact, no fasiculations, no tremors, muscle strength 4 out of 5 in bilateral lower extremities, slight withdrawal to pain in right lower extremity, withdrawal to pain in left lower extremity, [id number] poor, finger to nose poor, finger tracking poor, patient reports slow thinking Psych: Alert, oriented, flat affect Probable [place] variant of Gullain [place] syndrome - Elevated protein and normal WBC, with elevated glucose on CSF due to peripherla hyperglycemia - Ataxia with ascending sensory loss affecting everything but her face, subjective vertical diplopia, - IVIG for possible [place] variant of Gulliam [place] - D # 3 - [facility] has accepted the patient for further neurologic evaluation, insurance auth obtained, awaiting bed. - no significant improvement on IVIG, Possible need for plasma exchange, EMG, and NCS at transfer, If no bed available at [facility] in AM, would consider [facility] if plasma exchange available. - GQ1 pending - Vit E level pending - PMR consulted will follow patient, concerned about level of weakness. - PT/OT - D/w neuro at length - MRI thorasic and lumbar spine unremarkable - Repeat MRI of the brain and MR C-spince again without definitive abnormality - MRI of the brain shows no recent infarct, but was a suboptimal study, and mild to minimal nonspecific white matter ischemic changes. Echocardiogram with ejection fraction 60-65% and no significant valvular disease - CT of the head and neck showed no significant diameter reduction to help the patient's symptoms - CT head without contrast showed age-related atrophic and small vessel ischemic changes - CT of the neck demonstrated no evidence of acute fracture or subluxation Diabetes mellitus type 2 with hyperglycemia - A1c 7.5 - levemir 10 units at night - SSI - follow BS Large right renal cyst -Status post IR drainage, plan is to follow-up with urology as outpatient Multiple hypoechoic liver lesions suspect for hemangioma -Possible MRI as outpatient for further evaluation Gastroenteritis, resolved -GI recommendations appreciated: No plan for scope at this point in time -Supportive care with antiemetics, and Bentyl -C. diff negative, stool culture negative -Rapid COVID 19 negative 08/02 -Supportive care Chronic: Hypertension Hypothyroidism DKA, resolved Case was discussed with [facility] who graciously accepted her transfer. Accepting physician is Dr. Marquise Dong. [employer] auth approved. No beds available 09/01. Repeat COVID rapid obtained. DVT prophylaxis: SCDs Discussed with: patient, nursing Anticipated discharge: unknown Anticipated discharge place: [facility] vs [facility] A total of 35 minutes was spent on the care of this complex patient more than 50% of the time was spent in counseling and care coordination. Objective - Vital Signs Vital signs: Vital Signs Temp 97.5 F L 09/01/20 12:00 Pulse 62 09/01/20 12:00 Resp 15 09/01/20 13:40 BP 133/78 09/01/20 12:00 Pulse Ox 96 09/01/20 08:00 Intake & Output 08/31/20 09/01/20 09/01/20 18:59 06:59 18:59 Intake Total 480 540 438 Output Total 600 400 Balance -120 540 38 Weight 57 kg Intake: Oral 480 540 438 Output: Urine 600 400 Other: Voiding Method Bedpan Bedpan Diaper Diaper # Voids 1 # Bowel Movements 1 - Labs CBC & Chem 7: 09/01/20 08:03 09/01/20 08:03 Labs: Abnormal Lab Results - Last 24 Hours (Table) 08/31/20 08/31/20 09/01/20 Range/Units 16:36 20:35 06:24 Sodium (137-145) mmol/L Chloride (98-107) mmol/L Carbon Dioxide (22-30) mmol/L Glucose (74-99) mg/dL POC Glucose (mg/dL) 320 H 275 H 120 H (75-99) mg/dL Calcium (8.4-10.2) mg/dL 09/01/20 09/01/20 Range/Units 08:03 12:00 Sodium 134 L (137-145) mmol/L Chloride 93 L (98-107) mmol/L Carbon Dioxide 37 H (22-30) mmol/L Glucose 181 H (74-99) mg/dL POC Glucose (mg/dL) 278 H (75-99) mg/dL Calcium 8.3 L (8.4-10.2) mg/dL Microbiology - Last 24 Hours (Table) 08/30/20 15:15 CSF Gram Stain - Preliminary Cerebral Spinal Fluid CSF Culture - Preliminary
[2020-09-01 16:53] LABS: Glucose,Whole Blood 302 mg/dL (75-99)
--- NOTE | 2020-09-01 17:28 | P.DS ---
Providers Date of admission: 08/22/20 13:55 Expected date of discharge: 09/01/20 Attending physician: Sky Barber Consults: 08/24/20 01:53 Consult Physician Urgent Consulting Provider: Luisito Allen Consult Reason/Comments: Ataxia, kristal weakness Do you want consulting provider notified?: Yes 08/26/20 11:28 Consult Physician Routine Consulting Provider: Jeremi Sinclair Consult Reason/Comments: rehab eval for ataxia Do you want consulting provider notified?: Yes, Notify in am 08/30/20 09:20 Consult Physician Urgent Consulting Provider: Kaitlin De La Torre Consult Reason/Comments: LP with opening and closing pressure Do you want consulting provider notified?: Yes 08/30/20 13:07 Consult Physician Stat Consulting Provider: Baldo Kaur Consult Reason/Comments: LP with opening and closing pressure Do you want consulting provider notified?: Already Contacted Primary care physician: Helen [facility] [place] Course: Discharge Diagnosis: Probable [place] variant of G[place]ain [place] syndrome related to gastroenteritis - Elevated protein and normal WBC, with elevated glucose on CSF due to peripherla hyperglycemia - Ataxia with ascending sensory loss affecting everything but her face, subjective vertical diplopia, - IVIG for possible [place] variant of G[place] - D # 3 - [facility] has accepted the patient for further neurologic evaluation, insurance auth obtained, awaiting bed. - no significant improvement on IVIG, Possible need for plasma exchange, EMG, and NCS at transfer, If no bed available at [facility] in AM, would consider [facility] if plasma exchange available. - GQ1 pending - Vit E level pending - PMR consulted will follow patient, concerned about level of weakness. - PT/OT - D/w neuro at length - MRI thorasic and lumbar spine unremarkable - Repeat MRI of the brain and MR C-spince again without definitive abnormality - MRI of the brain shows no recent infarct, but was a suboptimal study, and mild to minimal nonspecific white matter ischemic changes. Echocardiogram with ejection fraction 60-65% and no significant valvular disease - CT of the head and neck showed no significant diameter reduction to help the patient's symptoms - CT head without contrast showed age-related atrophic and small vessel ischemic changes - CT of the neck demonstrated no evidence of acute fracture or subluxation -Rapid COVID 19 negative 08/02 Diabetes mellitus type 2 with hyperglycemia - A1c 7.5 - levemir 10 units at night increased to 11 units at night - SSI - follow BS Large right renal cyst -Status post IR drainage, plan is to follow-up with urology as outpatient Multiple hypoechoic liver lesions suspect for hemangioma -Possible MRI as outpatient for further evaluation Gastroenteritis, resolved -GI recommendations appreciated: No plan for scope at this point in time -Supportive care with antiemetics, and Bentyl -C. diff negative, stool culture negative -Supportive care Chronic: Hypertension Hypothyroidism DKA, resolved Hospital Course: This is a 50-year-old female with past medical history noted below who presented to the emergency room with persistent nausea, vomiting, and diarrhea. She had been hospitalized here from 08/18 through 08/21 for large right renal cyst which was drained by interventional radiology with severe nausea vomiting and diarrhea suspected to be due to acute viral gastroenteritis. A COVID-19 antigen test was run at that point in time and was negative. Her nausea vomiting and diarrhea improved with symptomatic management. She was discharged home in stable condition. She again presented on 08/22 with nausea, vomiting, and diarrhea. At that point in time she was found to be in mild DKA with a bicarb of 13 and anion gap of 14. She was started on DKA protocol was transitioned off on 08/23. Overnight on 08/23 the envelope folder was called secondary to ataxia and neurology consult was ordered. Patient was seen by neurology. She underwent an MRI of the brain without gadolinium which was suboptimal study but demonstrated no recent infarct and mild to minimal nonspecific white matter changes presumably on the basis of chronic small vessel ischemic changes, CTA of the head and neck showed no significant diameter reduction to account for symptom, CT cervical spine showed no evidence for acute fracture or subluxation of the for cervical spine, she underwent a 2-D echocardiogram which showed a normal ejection fraction of 60-65%. Her TSH was normal, hemoglobin A1c 7.8. She continued to have issues with ataxia which were unresolving. She was unable to stand or get out of the bed to use the bedside commode. Her symptoms were so debilitating that she required the bed benitez only. All movements resulted in nausea. She was noted to have hypophosphatemia and hypocalcemia which were corrected. She did continue to have some intermittent episodes of hypoglycemia during her hospital stay and insulin was adjusted. Patient has a history of being a very brittle diabetic. Vitamin B12 came back at 1164. Folate, copper, and zinc levels were normal. Inpatient rehab was consulted on the morning of 08/27 and arrived to the patient's room to find her lying on the floor. Patient states this happened when she was trying to scoot herself up in bed. She denied any changes in pain. A repeat MRI of the brain with and without contrast was completed on 08/27 which was normal and had no suspicious cerebellar central pontine abnormality. A MRI of the cervical spine was completed which again showed no abnormality to account for her symptoms. Case was again discussed with neurology at length and they recommended transfer to a tertiary care center for further evaluation of her ataxia. Electrolytes on 08/27 showed a potassium of 3.2 and a magnesium of 1.5 both of which were replaced. She had an episode of hypoglycemia at approximately 6:45 AM with a blood sugar of 52 which corrected with oral intake and insulin was adjusted Over 08/28 and 08/29 her lower extremity weakness and numbness increased significantly. Started on steroids for possible inflammatory medicated conditions which were stopped . 08/30 she underwent LP consistent with elevated protein and normal WBC. She was started on IVIG for possible [place]. MRI thorasic and Lumbar spine was unremarkable. 08/31 Able to sense pain and withdraw legs 09/01 # 3 of IVIG no significant improvement in parasthesia, nausea resolved. Still feeling very wean and unable to stand/scoot herself in bed. For physical exam please see progress note same date. A total of 35 minutes of time were spent preparing this complex discharge summary . Patient Condition at Discharge: Stable Plan - Discharge Summary Discharge Rx Participant: No New Discharge Prescriptions: No Action INSULIN ASPART (NovoLOG) [NovoLOG (formulary)] See Protocol SQ AC-TID Insulin Degludec [Tresiba Flextouch U-100] 18 unit SQ QAM Levothyroxine Sodium [Synthroid] 150 mcg PO DAILY lisinopriL [Zestril] 5 mg PO DAILY Acetaminophen-Codeine 300-30mg [Tylenol w/codeine #3] 1 tab PO Q6H PRN 3 Days #12 tablet PRN Reason: Pain Ondansetron HCl [Zofran] 4 mg PO Q8H PRN #30 tab PRN Reason: Nausea And Vomiting Discharge Medication List INSULIN ASPART (NovoLOG) [NovoLOG (formulary)] See Protocol SQ AC-TID 03/02/14 [History] Insulin Degludec [Tresiba Flextouch U-100] 18 unit SQ QAM 06/18/17 [History] Levothyroxine Sodium [Synthroid] 150 mcg PO DAILY 06/21/17 [History] Acetaminophen-Codeine 300-30mg [Tylenol w/codeine #3] 1 tab PO Q6H PRN 3 Days #12 tablet 08/16/20 [Rx] lisinopriL [Zestril] 5 mg PO DAILY 08/16/20 [History] Ondansetron HCl [Zofran] 4 mg PO Q8H PRN #30 tab 08/21/20 [Rx] Follow up Appointment(s)/Referral(s): Helen Villatoro MD [Primary Care Provider] - 1-2 days
[2020-09-01 18:10] VITALS: BP 146/73; PULSE 77
--- NOTE | 2020-09-01 19:42 | P.PN ---
Subjective Progress Note Date: 09/01/20 She was seen at bedside and the today's the third day of IVIG at. She states that she doesn't feel any better but does not feel any worse. Denies of any new neurological problems. Objective - Vital Signs Vital signs: Vital Signs Temp 97.5 F L 09/01/20 12:00 Pulse 77 09/01/20 16:00 Resp 14 09/01/20 16:00 BP 146/73 09/01/20 16:00 Pulse Ox 93 L 09/01/20 16:00 Intake & Output 09/01/20 09/01/20 09/02/20 06:59 18:59 06:59 Intake Total 540 558 Output Total 400 200 Balance 540 158 -200 Weight 57 kg Intake: Oral 540 558 Output: Urine 400 200 Other: Voiding Method Bedpan Diaper # Voids 1 1 # Bowel Movements 1 - Exam GENERAL: The patient is lying in bed and is in mild acute distress. NEUROLOGICAL: Higher mental function: The patient is awake, alert, oriented to self, place and time. Patient is following commands. No aphasia and no neglect. Cranial nerves: The pupils are round, equal and reactive to light and accommodation. Visual sommer are full to confrontation throughout. Extraocular movement is intact no nystagmus is noted. Facial sensation is normal to touch throughout. The facial strength is normal throughout. Hearing is normal bilaterally to hand rub. Tongue is midline and moved [id number] without any difficulty. Mild dysarthria noted. Shoulder shrug is normal bilaterally. Motor: Gait was deferred because patient felt unsteady walking. The strength is 5-/5 over the left upper extremity. Bilateral lower extremity: 5- bilaterally. Otherwise is 5 over 5 throughout. Decrease tone throughout. There is no resting tremor or no spontaneous abnormal movements. Cerebellum: With a finger to chin and heel to hammer she was ataxic (worse over upper > lower). Sensation: She felt decrease to touch and pinprick throughout entire body up until base of neck region bilaterally. Reflexes (right/left): ) 0 ankles, 0-1 at patellars and 1+ in bilateral upper extremities. Plantars are mute bilaterally. - Labs CBC & Chem 7: 09/01/20 08:03 09/01/20 08:03 Labs: Abnormal Lab Results - Last 24 Hours (Table) 1209/01/20 09/01/20 Range/Units 20:35 06:24 08:03 Sodium 134 L (137-145) mmol/L Chloride 93 L (98-107) mmol/L Carbon Dioxide 37 H (22-30) mmol/L Glucose 181 H (74-99) mg/dL POC Glucose (mg/dL) 275 H 120 H (75-99) mg/dL Calcium 8.3 L (8.4-10.2) mg/dL 09/01/20 09/01/20 Range/Units 12:00 16:52 Sodium (137-145) mmol/L Chloride (98-107) mmol/L Carbon Dioxide (22-30) mmol/L Glucose (74-99) mg/dL POC Glucose (mg/dL) 278 H 302 H (75-99) mg/dL Calcium (8.4-10.2) mg/dL Microbiology - Last 24 Hours (Table) 08/30/20 15:15 CSF Gram Stain - Preliminary Cerebral Spinal Fluid CSF Culture - Preliminary Assessment and Plan Assessment: 50-year-old woman with that presented to the emergency department on 08/22/2020 for complaint of nausea vomiting and diarrhea for the past 1 week. She is also having ataxia, unsteady walking for the past one week prior to presentation. Also complaining of diplopia out of both eyes, feels she is slurring speech and difficulty getting her words out, sensation throughout body is off for past one week. 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 On IVIG today is day 3 out of 5. Brittle diabetes Hypocalcemia DKA--resolved Electrolyte imbalance (phosphorus, hypocalcemia) Episodes of hypoglycemia Hypothyroidism History of thyroid nodule status post thyroidectomy Plan: MRI of the brain without gadolinium: Suboptimal study but no MRI evidence of recent infarct. Mild to minimal nonspecific white matter changes presumably on the basis of chronic of chronic small vessel ischemic changes. Chronic paranasal sinus disease redemonstrated. CTA of the head and neck was reported as no significant diameter reduction to account for the patient's symptoms. No significant abnormality. CT cervical spine ordered by the primary team was reported as no evidence for acute fracture or subluxation of the cervical spine that. MRI Brain and Cervical spine 08/27/20: Is reported as normal MRI the brain. No suspicious cerebellar or central pontine abnormality. Essentially normal MRI the cervical spine. MRI of the thoracic spine08/30/20 ordered by primary team was reported as minimal disc desiccation otherwise normal thoracic spine 2-D echo: Was reported as left ventricular size is normal. Left ventricle wall thickness is normal. Ejection fraction between 60-65%. lipid profile: Triglyceride 114, cholesterol 135, LDL 61, HDL 51. TSH: 0.786. hemoglobin A1c: 7.8. vitamin B12: 1164 which is normal. RBC Folate: 640 (normal) copper: 936 (normal) and zinc: 77 (normal). I stopped the aspirin 81 mg and Lipitor 40 mg since this is not a stroke. Patient had lumbar puncture yesterday (08/30/2020) at around 1515 and the the results are the CSF appears clear, colorless, there is three-year red blood cell, 0 nucleated cells, CSF glucose is 200 (normal range 40-70), CSF total protein is 220 (normal range 12-60). Patient POC glucose at 1435 on 08/30/2020 was 404. The CSF is suggestive of albuminocytologic dissociation suggestive of the GBS. He S the patient does have diabetes which can elevate the CSF protein but I think this is a drastic elevation of the 14 and with the clinical presentation I feel like the patient has a GBS. I started the patient on IVIG 2 g per kg over 5 days started on 08/30/2020. Today is day #3 out of 5. Pending antiGQ1 antibody vitamin E level: pending. IgA level: 192 (within normal limits). I started the patient on thiamine IV 100 mg daily especially with her diarrhea that can cause a vitamin deficiency. Occupation therapy and physical therapy are on board. Inpatient rehab is on board. If the patient's conditions worsens then recommend patient to be transferred over to ICU. If patient is still not transferred to [facility] and if completed IVIG and no improvement then will try to transfer patient to another facility for possible Plasma exchange(PLEX) and EMG with NCS study. Regarding that electrolyte imbalance correction will defer management to the primary team. Recommend avoiding hypoglycemia episodes and will defer the management and diabetes to the primary team. Plan was discussed with the patient and primary team. Luisito Allen M.D. Neuro-hospitalist Time with Patient: Less than 30
[2020-09-01 20:06] LABS: Glucose,Whole Blood 320 mg/dL (75-99)
[2020-09-01 20:13] VITALS: RESP 18
[2020-09-01] MEDS ORDERED: INSULIN DETEMIR (LEVEMIR) 100 UNIT/ML SYR SQ SCH (21:00)
[2020-09-02] MEDS ORDERED: IMMUNE GLOBULIN (GAMMAGARD) 20 GM in EMPTY BAG 1 BAG IV ONE (15:00)
[2020-09-03] MEDS ORDERED: IMMUNE GLOBULIN (GAMMAGARD) 20 GM in EMPTY BAG 1 BAG IV ONE (15:00)
== END 2020-09-01 20:05 | disposition short-term general hospital (02) | DRG 638 ==
LOC: EC 09:54 → 3SCARD 13:55
PROVIDERS: ADMIT Internal Medicine; ATTEND Internal Medicine
PROC: 30233S1 Transfusion of Nonautologous Globulin into Peripheral Vein, Percutaneous Approach (ICD-10-PCS; principal; 2020-08-30)
PROC: 009U3ZX Drainage of Spinal Canal, Percutaneous Approach, Diagnostic (ICD-10-PCS; principal; 2020-08-30)
DX: E11.10 Type 2 diabetes mellitus with ketoacidosis without coma (principal); G61.0 Guillain-Barre syndrome; G93.40 Encephalopathy, unspecified; A09 Infectious gastroenteritis and colitis, unspecified; J98.11 Atelectasis; E83.51 Hypocalcemia; E83.39 Other disorders of phosphorus metabolism; Z79.899 Other long term (current) drug therapy; E11.649 Type 2 diabetes mellitus with hypoglycemia without coma; E11.65 Type 2 diabetes mellitus with hyperglycemia; E87.6 Hypokalemia; E89.0 Postprocedural hypothyroidism; F17.210 Nicotine dependence, cigarettes, uncomplicated; N28.1 Cyst of kidney, acquired; I10 Essential (primary) hypertension; R27.0 Ataxia, unspecified; K44.9 Diaphragmatic hernia without obstruction or gangrene; Z20.828 Contact with and (suspected) exposure to other viral communicable diseases; Z79.4 Long term (current) use of insulin; Z79.890 Hormone replacement therapy; Z80.9 Family history of malignant neoplasm, unspecified; Z83.3 Family history of diabetes mellitus; Z60.2 Problems related to living alone; D18.09 Hemangioma of other sites; E86.0 Dehydration
CPT/HCPCS: 36415; 62328; 70450; 70496; 70498; 70551; 70553; 72125; 72156; 72157; 72158; 74022; 80048; 80051; 80053; 80061; 80306; 80320; 81003; 82009; 82150; 82330; 82525; 82565; 82607; 82747; 82784; 82945; 82947; 83036; 83690; 83735; 83916; 84100; 84132; 84157; 84443; 84446; 84520; 84630; 85025; 85027; 85610; 87045; 87046; 87070; 87075; 87205; 87324; 87635; 89050; 93306; 96361; 96374; 99285

== ENCOUNTER → 2020-11-26 | Outpatient (CLI) | payer BC, OTHER | LOC: RADECHMAIN 15:05 | PROVIDERS: ATTEND Family Medicine | DX: R55 Syncope and collapse (principal) | CPT/HCPCS: 93270 ==

== ENCOUNTER 2021-04-17 23:32 | Emergency (ER) | payer OTHER ==
[2021-04-17 23:39] VITALS: TEMP 98.6
[2021-04-18 00:29] LABS: Glucose,Whole Blood 193 mg/dL (75-99)
[2021-04-18 00:48] LABS: Basophils # (A) 0.1 k/uL (0-0.2); Basophils % (A) 1 %; Eosinophils # (A) 0.2 k/uL (0-0.7); Eosinophils % (A) 2 %; HCT 40.4 % (34.0-46.0); Lymphocytes # (A) 0.7 k/uL (1.0-4.8); Lymphocytes % (A) 8 %; MCH 29.7 pg (25.0-35.0); MCHC 34.7 g/dL (31.0-37.0); MCV 85.7 fL (80.0-100.0); Mean Platelet Volume 7.1; Monocytes # (A) 0.5 k/uL (0-1.0); Monocytes % (A) 5 %; Neutrophils # (A) 7.5 k/uL (1.3-7.7); Neutrophils % (A) 84 %; Platelet Count 313 k/uL (150-450); RBC 4.71 m/uL (3.80-5.40); RDW 12.6 % (11.5-15.5)
[2021-04-18] MEDS ORDERED: SODIUM CHLORIDE 0.9% 1,000 ML IV ONE (00:56)
[2021-04-18 01:11] LABS: ALT 21 U/L (4-34); AST 30 U/L (14-36); African American GFR (CKD) >90 (>60 ml/min/1.73 sqM); Albumin 3.4 g/dL (3.5-5.0); Alkaline Phosphatase 64 U/L (38-126); Anion Gap 7 mmol/L; Blood Urea Nitrogen 12 mg/dL (7-17); Calcium 8.5 mg/dL (8.4-10.2); Carbon Dioxide 23 mmol/L (22-30); Chloride 105 mmol/L (98-107); Glucose 181 mg/dL (74-99); Non-African American GFR(CKD) >90 (>60 ml/min/1.73 sqM); Potassium 3.8 mmol/L (3.5-5.1); Sodium 135 mmol/L (137-145); Total Bilirubin 0.2 mg/dL (0.2-1.3); Total Protein 6.2 g/dL (6.3-8.2)
--- NOTE | 2021-04-18 02:35 | XR ---
EXAMINATION TYPE: XR chest 2V DATE OF EXAM: 04/18/2021 COMPARISON: 08/22/2020 HISTORY: Altered mental status TECHNIQUE: 2 views FINDINGS: There is no heart failure nor confluent pneumonic infiltrate. Costophrenic angles are clear . There are no hilar masses. The bony thorax is intact. Pulmonary vascularity is normal. IMPRESSION: Normal chest. No adverse change.
--- NOTE | 2021-04-18 03:00 | ED ---
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 Staff at [facility] state that she was having hallucinations, trying to hand them stuff that was not there. Patient thought her blood sugar was low. She denies any headache, blurred vision, double vision. Denies any abdominal pain, nausea, or vomiting. Denies constipation or diarrhea. Denies any chest pain or shortness of breath. Patient denies any recent rash, fever, chills, cough, back pain, hematuria, dysuria, urinary urgency, urinary frequency, or any other complaints. - Related Data Home Medications Medication Instructions Recorded Confirmed INSULIN ASPART (NovoLOG) [NovoLOG See Protocol SQ AC-TID 03/02/14 03/25/21 (formulary)] Insulin Degludec [Tresiba 18 unit SQ QAM 06/18/17 03/25/21 Flextouch U-100] Levothyroxine Sodium [Synthroid] 100 mcg PO DAILY 06/21/17 03/25/21 Aspirin [Adult Low Dose Aspirin EC] 81 mg PO DAILY 03/21/21 03/25/21 Atorvastatin [Lipitor] 10 mg PO DAILY 03/21/21 03/25/21 Cyanocobalamin (Vitamin B-12) 500 mcg PO DAILY 03/21/21 03/25/21 [Vitamin B-12] Hydrocortisone 5 mg PO DAILY 03/21/21 03/25/21 Insulin NPH Human Isophane 12 units SQ DIRECTED 03/21/21 03/25/21 [NovoLIN N] Meclizine HCl [Bonine] 25 mg PO DAILY 03/21/21 03/25/21 Metoprolol Tartrate [Lopressor] 12.5 mg PO BID 03/21/21 03/25/21 Midodrine HCl [ProAmatine] 10 mg PO DAILY 03/21/21 03/25/21 Pantoprazole Sodium [Protonix] 40 mg PO DAILY 03/21/21 03/25/21 Pioglitazone [Actos] 15 mg PO DAILY 03/21/21 03/25/21 Potassium Chloride [K-Tab ER] 20 meq PO DAILY 03/21/21 03/25/21 Pyridostigmine [place] [Mestinon] 60 mg PO DAILY 03/21/21 03/25/21 Sertraline [Zoloft] 12.5 mg PO DAILY 03/21/21 03/25/21 Sucralfate [Carafate] 1 gm PO ACHS 03/21/21 03/25/21 Trihexyphenidyl HCl 2 mg PO DAILY 03/21/21 03/25/21 amantadine HCL [Amantadine] 100 mg PO DAILY 03/21/21 03/25/21 traZODone HCL 50 mg PO HS 03/21/21 03/25/21 Allergies Allergy/AdvReac Type Severity Reaction Status Date / Time No Known Allergies Allergy Verified 04/17/21 23:39 Review of Systems ROS Statement: Those systems with pertinent positive or pertinent negative responses have been documented in the HPI. ROS Other: All systems not noted in ROS Statement are negative. Past Medical History Past Medical History: Diabetes Mellitus, Thyroid Disorder Additional Past Medical History / Comment(s): Atopic DERMATITIS. HX THYROIDECTOMY D/T NODULES. uterine fibriods, heavy irregular menstrual periods History of Any Multi-Drug Resistant Organisms: None Reported Past Surgical History: Section, Tubal Ligation Additional Past Surgical History / Comment(s): THYROIDECTOMY. Past Anesthesia/Blood Transfusion Reactions: No Reported Reaction, Motion Sickness Past Psychological History: Anxiety, Depression Smoking Status: Former smoker Past Alcohol Use History: None Reported Past Drug Use History: None Reported - Past Family History Mother Family Medical History: Cancer Additional Family Medical History / Comment(s): brain. DM runs in the family General Exam Limitations: no limitations General appearance: alert, in no apparent distress, other (This is a well-devel oped, well-nourished adult female patient in no acute distress. Vital signs upon presentation are temperature 98.6F, pulse 69, respirations 16, blood pressure 90/68, pulse ox 96% on room air.) Eye exam: Present: normal appearance, PERRL, EOMI. Absent: scleral icterus, con junctival injection, periorbital swelling ENT exam: Present: normal exam, normal oropharynx, mucous membranes moist Respiratory exam: Present: normal lung sounds bilaterally. Absent: respiratory distress, wheezes, rales, rhonchi, stridor Cardiovascular Exam: Present: regular rate, normal rhythm, normal heart sounds. Absent: systolic murmur, diastolic murmur, rubs, gallop, clicks GI/Abdominal exam: Present: soft, normal bowel sounds. Absent: distended, tenderness, guarding, rebound, rigid Neurological exam: Present: alert, oriented X3, CN II-XII intact, other (Weakne ss to the upper and lower extremities) Psychiatric exam: Present: normal affect, normal mood Skin exam: Present: warm, dry, intact, normal color. Absent: rash Course Vital Signs 04/17/21 04/18/21 04/18/21 23:35 00:39 01:30 Temperature 98.6 F Pulse Rate 69 72 73 Respiratory 16 18 16 Rate Blood Pressure 90/68 94/57 100/62 O2 Sat by Pulse 96 97 96 Oximetry EKG Findings - EKG Comments: EKG Findings:: EKG obtained at 0307 shows normal sinus rhythm with a ventricular rate of 72, IA interval 140, QRS duration 72, QT 410, QTC 448. No evidence of ST elevation or depression. Reading is somewhat limited by artifact, patient unable to hold still for exam. Medical Decision Making - Medical Decision Making 51-year-old female patient with past medical history significant for Guillain- Camilo syndrome presents to the emergency department today for altered mental status. Physical examination is unremarkable. Patient does have extremity weakness. She is alert and oriented 3. Labs reviewed and are unremarkable. Urinalysis shows no sign of infection. Chest x-ray is negative. EKG is unremarkable. I did discuss findings and results with the patient. She'll be discharged back to [facility] [place] the [place]. Return parameters were discussed in detail. She verbalizes understanding and agrees this plan. Case discussed with my attending Dr. Drew. - Lab Data Result diagrams: 04/18/21 00:21 04/18/21 00:21 Lab Results 04/18/21 04/18/21 04/18/21 Range/Units 00: 00:21 00:21 WBC 9.0 (3.8-10.6) k/uL RBC 4.71 (3.80-5.40) m/uL Hgb 14.0 (11.4-16.0) gm/dL Hct 40.4 (34.0-46.0) % MCV 85.7 (80.0-100.0) fL MCH 29.7 (25.0-35.0) pg MCHC 34.7 (31.0-37.0) g/dL RDW 12.6 (11.5-15.5) % Plt Count 313 (150-450) k/uL MPV 7.1 Neutrophils % 84 % Lymphocytes % 8 % Monocytes % 5 % Eosinophils % 2 % Basophils % 1 % Neutrophils # 7.5 (1.3-7.7) k/uL Lymphocytes # 0.7 L (1.0-4.8) k/uL Monocytes # 0.5 (0-1.0) k/uL Eosinophils # 0.2 (0-0.7) k/uL Basophils # 0.1 (0-0.2) k/uL Sodium 135 L (137-145) mmol/L Potassium 3.8 (3.5-5.1) mmol/L Chloride 105 (98-107) mmol/L Carbon Dioxide 23 (22-30) mmol/L Anion Gap 7 mmol/L BUN 12 (7-17) mg/dL Creatinine 0.44 L (0.52-1.04) mg/dL Est GFR (CKD-EPI)AfAm >90 (>60 ml/min/1.73 sqM) Est GFR (CKD-EPI)NonAf >90 (>60 ml/min/1.73 sqM) Glucose 181 H (74-99) mg/dL POC Glucose (mg/dL) (75-99) mg/dL POC Glu Culvert Installer ID Calcium 8.5 (8.4-10.2) mg/dL Total Bilirubin 0.2 (0.2-1.3) mg/dL AST 30 (14-36) U/L ALT 21 (4-34) U/L Alkaline Phosphatase 64 (38-126) U/L Troponin I <0.012 (0.000-0.034) ng/mL Total Protein 6.2 L (6.3-8.2) g/dL Albumin 3.4 L (3.5-5.0) g/dL Urine Color Urine Appearance (Clear) Urine pH (5.0-8.0) Ur Specific Jewell (1.001-1.035) Urine Protein (Negative) Urine Glucose (UA) (Negative) Urine Ketones (Negative) Urine Blood (Negative) Urine Nitrite (Negative) Urine Bilirubin (Negative) Urine Urobilinogen (<2.0) mg/dL Ur Leukocyte Esterase (Negative) Urine WBC (0-5) /hpf Ur Squamous Epith Cells (0-4) /hpf Urine Bacteria (None) /hpf Urine Mucus (None) /hpf 04/18/21 04/18/21 Range/Units 00:27 02:39 WBC (3.8-10.6) k/uL RBC (3.80-5.40) m/uL Hgb (11.4-16.0) gm/dL Hct (34.0-46.0) % MCV (80.0-100.0) fL MCH (25.0-35.0) pg MCHC (31.0-37.0) g/dL RDW (11.5-15.5) % Plt Count (150-450) k/uL MPV Neutrophils % % Lymphocytes % % Monocytes % % Eosinophils % % Basophils % % Neutrophils # (1.3-7.7) k/uL Lymphocytes # (1.0-4.8) k/uL Monocytes # (0-1.0) k/uL Eosinophils # (0-0.7) k/uL Basophils # (0-0.2) k/uL Sodium (137-145) mmol/L Potassium (3.5-5.1) mmol/L Chloride (98-107) mmol/L Carbon Dioxide (22-30) mmol/L Anion Gap mmol/L BUN (7-17) mg/dL Creatinine (0.52-1.04) mg/dL Est GFR (CKD-EPI)AfAm (>60 ml/min/1.73 sqM) Est GFR (CKD-EPI)NonAf (>60 ml/min/1.73 sqM) Glucose (74-99) mg/dL POC Glucose (mg/dL) 193 H (75-99) mg/dL POC Glu Culvert Installer ID Rui Braswell Calcium (8.4-10.2) mg/dL Total Bilirubin (0.2-1.3) mg/dL AST (14-36) U/L ALT (4-34) U/L Alkaline Phosphatase (38-126) U/L Troponin I (0.000-0.034) ng/mL Total Protein (6.3-8.2) g/dL Albumin (3.5-5.0) g/dL Urine Color Yellow Urine Appearance Cloudy H (Clear) Urine pH 6.5 (5.0-8.0) Ur Specific Jewell 1.012 (1.001-1.035) Urine Protein Negative (Negative) Urine Glucose (UA) 3+ H (Negative) Urine Ketones Negative (Negative) Urine Blood Negative (Negative) Urine Nitrite Negative (Negative) Urine Bilirubin Negative (Negative) Urine Urobilinogen <2.0 (<2.0) mg/dL Ur Leukocyte Esterase Trace H (Negative) Urine WBC 3 (0-5) /hpf Ur Squamous Epith Cells 1 (0-4) /hpf Urine Bacteria Moderate H (None) /hpf Urine Mucus Few H (None) /hpf Disposition Clinical Impression: Altered mental status Disposition: HOME SELF-CARE Condition: Good Instructions (If sedation given, give patient instructions): Altered Mental Status (ED) Is patient prescribed a controlled substance at d/c from ED?: No Referrals: Lizzy Jane MD [Primary Care Provider] - 1-2 days Time of Disposition: 03:22
[2021-04-18 03:04] LABS: Appearance,Urine Cloudy (Clear); Bacteria,Urine Moderate /hpf; Bilirubin,Urine Negative (Negative); Blood,Urine Negative (Negative); Color,Urine Yellow; Glucose,Urine (UA) 3+ (Negative); Ketones,Urine Negative (Negative); Leukocyte Esterase,Urine Trace (Negative); Mucus,Urine Few /hpf; Nitrite,Urine Negative (Negative); PH, Urine 6.5 (5.0-8.0); Protein,Urine Negative (Negative); Specific Gravity,Urine 1.012 (1.001-1.035); Squamous Epithelial Cell,Urine 1 /hpf (0-4); Urobilinogen,Urine <2.0 mg/dL (<2.0); WBC,Urine 3 /hpf (0-5)
[2021-04-18 03:34] VITALS: BP 116/71; PULSE 67; RESP 18
== END 2021-04-18 03:40 | disposition home or self-care (01) ==
LOC: EC 23:32
DX: R41.82 Altered mental status, unspecified (principal); E11.9 Type 2 diabetes mellitus without complications; F32.9 Major depressive disorder, single episode, unspecified; F41.9 Anxiety disorder, unspecified; Z79.4 Long term (current) use of insulin; Z79.82 Long term (current) use of aspirin; Z79.899 Other long term (current) drug therapy; Z87.891 Personal history of nicotine dependence; Z83.3 Family history of diabetes mellitus
CPT/HCPCS: 36415; 71046; 80053; 81001; 84484; 85025; 93005; 96360; 99285